=== PATIENT | male | born 1945 | race Caucasian/White ===

== ENCOUNTER 2023-12-08 05:12 | Inpatient (IN) | payer MEDICARE, BC, SELFPAY ==
[2023-12-07 20:58] VITALS: BP 130/68
--- NOTE | 2023-12-07 21:07 | ED.GENMED ---
History of Present Illness
<Horace Qureshi PA-C - Last Filed: 12/07/23 22:33>
General
Chief Complaint: Change in Mental Status
Source: ambulance crew
Time Seen by Provider: 12/07/23 20:59
History of Present Illness
History of Present Illness:
78-year-old male with past medical history of dementia, bipolar disorder, metabolic encephalopathy emergency department via EMS for evaluation of reported change in mental status with last known normal being at some point yesterday evening.
states patient throughout the day today and staff at the prison facility decided to send him to the ER this evening. Patient is reportedly getting treated for pneumonia with Zithromax and cefuroxime however it is unclear as to how long he has
been on these medications unable to get any history from the patient due to his current mental status.
<Az Lea DO - Last Filed: 12/08/23 00:37>
History of Present Illness
History of Present Illness:
78-year-old male with past medical history of dementia, bipolar disorder, metabolic encephalopathy emergency department via EMS for evaluation of reported change in mental status with last known normal being at some point yesterday evening.
states patient throughout the day today and staff at the prison facility decided to send him to the ER this evening. Patient is reportedly getting treated for pneumonia with Zithromax and cefuroxime however it is unclear as to how long he has
been on these medications unable to get any history from the patient due to his current mental status.
Contact for the patient and his daughter Jazmin [phone]
Past History
<Horace Qureshi PA-C - Last Filed: 12/07/23 22:33>
Past History
ED Past Medical History: Psychiatric and Other (Dementia)
ED Past Surgical History: Cardiac
Social History
Tobacco: Non-smoker
Alcohol: None
Drug: None
Personal:
Living: prison
Review of Systems
<Horace Qureshi PA-C - Last Filed: 12/07/23 22:33>
Review of Systems
All Other Systems: ROS reviewed and negative except as documented in HPI and ROS
Phy Exam
<Horace Qureshi PA-C - Last Filed: 12/07/23 22:33>
Physical Exam
Physical Exam:
GENERAL: Does not respond to sternal rub but is withdrawing from pain, stuporous,
EYE: Clear conjunctiva
NECK: Supple
ENT: o/p clr, dry mucous membranes
CARDIAC: Regular rate and rhythm .
LUNGS: Clear breath sounds bilaterally, no acute respiratory distress, no wheezes/rales/rhonchi
ABDOMEN: Soft,
NEUROLOGICAL: Unable to assess
SKIN: Warm and dry, skin intact.
MUSCULOSKELETAL: No edema, well perfused.
PSYCH: Unable to assess
Scores
<Horace Qureshi PA-C - Last Filed: 12/07/23 22:33>
Heart Failure Risk
Heart Failure Risk Score: Not Applicable
Heart Score for Chest Pain Patients
STEMI patient?: Not applicable
Withdrawal Assessment of Alcohol
Withdrawal Assessment Completed?: Not applicable
Course
<Horace Qureshi PA-C - Last Filed: 12/07/23 22:33>
Orders/Labs/Results
Orders:
Orders
12/07/23 20:59
Straight cath- Treatment ONCE
Urinalysis Reflex To Culture Urgent
0.9% Sodium Chloride 1000 ml [Nss] 1,800 ml IV NOW STA
12/07/23 21:00
Electrocardiogram (*1) Urgent
Reason for Study: Other
Other Reason for Exam: sepsis
CT Head W/o Iv Contrast Urgent
Comment:
Reason For Exam: AMS, hx dementia
EKG- Treatment ONCE
CR Chest Portable - 1 View Urgent
Comment:
Reason For Exam: unresponsive, reported hx of pneumonia
Reason Study Needs to be Portable: Unable to Transport
12/07/23 23:16
Complete Blood Count/With Diff Urgent
Comprehensive Metabolic Panel Urgent
Lactic Acid Q4H
Comment: CANCEL 2nd LACTIC ACID IF 1st LACTIC ACID IS LESS THAN 2
12/07/23 23:17
Blood Culture Q30M
ELE Source: Blood/Venous
Specimen Description:
Blood Culture Q30M
ELE Source: Blood/Venous
Specimen Description:
12/08/23 00:34
Add On- LAB Urgent
Tests Added?: lithium
12/08/23 01:00
Lactic Acid Q4H
Comment: CANCEL 2nd LACTIC ACID IF 1st LACTIC ACID IS LESS THAN 2
Abnormal Lab Results
12/07/23
23:16
RBC 4.07 L 10^6/uL
(4.70-6.10)
Hgb 11.0 L g/dL
(13.0-18.0)
Hct 34.1 L %
(39.0-52.0)
MCHC 32.3 L g/dL
(33.0-37.0)
RDW 16.3 H %
(11.5-14.5)
Absolute Lymphs (auto) 0.9 L 10^3/uL
(1.2-3.4)
Neutrophils % 79.3 H %
(42.2-75.2)
Lymphocytes % 11.7 L %
(20.5-51.1)
BUN 36 H mg/dl
(9-20)
Creatinine 1.8 H mg/dL
(0.7-1.3)
12/07/23 23:16
12/07/23 23:16
Vital Signs
Initial and Last Documented VS:
Initial Vital Signs
Temp Pulse Resp BP Pulse Ox
97.8 F 65 14 130/68 97
12/07/23 20:58 12/07/23 20:58 12/07/23 20:58 12/07/23 20:58 12/07/23 20:58
Last Documented Vital Signs
Temp Pulse Resp BP Pulse Ox
97.8 F 60 14 131/76 99
12/07/23 20:58 12/07/23 23:30 12/07/23 23:30 12/07/23 23:30 12/07/23 23:30
<Az Lea, DO - Last Filed: 12/08/23 00:37>
Orders/Labs/Results
Orders:
Orders
12/07/23 20:59
Straight cath- Treatment ONCE
Urinalysis Reflex To Culture Urgent
0.9% Sodium Chloride 1000 ml [Nss] 1,800 ml IV NOW STA
12/07/23 21:00
Electrocardiogram (*1) Urgent
Reason for Study: Other
Other Reason for Exam: sepsis
CT Head W/o Iv Contrast Urgent
Comment:
Reason For Exam: AMS, hx dementia
EKG- Treatment ONCE
CR Chest Portable - 1 View Urgent
Comment:
Reason For Exam: unresponsive, reported hx of pneumonia
Reason Study Needs to be Portable: Unable to Transport
12/07/23 23:16
Complete Blood Count/With Diff Urgent
Comprehensive Metabolic Panel Urgent
Lactic Acid Q4H
Comment: CANCEL 2nd LACTIC ACID IF 1st LACTIC ACID IS LESS THAN 2
12/07/23 23:17
Blood Culture Q30M
ELE Source: Blood/Venous
Specimen Description:
Blood Culture Q30M
ELE Source: Blood/Venous
Specimen Description:
12/08/23 00:34
Add On- LAB Urgent
Tests Added?: lithium
12/08/23 01:00
Lactic Acid Q4H
Comment: CANCEL 2nd LACTIC ACID IF 1st LACTIC ACID IS LESS THAN 2
Abnormal Lab Results
12/07/23
23:16
RBC 4.07 L 10^6/uL
(4.70-6.10)
Hgb 11.0 L g/dL
(13.0-18.0)
Hct 34.1 L %
(39.0-52.0)
MCHC 32.3 L g/dL
(33.0-37.0)
RDW 16.3 H %
(11.5-14.5)
Absolute Lymphs (auto) 0.9 L 10^3/uL
(1.2-3.4)
Neutrophils % 79.3 H %
(42.2-75.2)
Lymphocytes % 11.7 L %
(20.5-51.1)
BUN 36 H mg/dl
(9-20)
Creatinine 1.8 H mg/dL
(0.7-1.3)
12/07/23 23:16
12/07/23 23:16
Vital Signs
Initial and Last Documented VS:
Initial Vital Signs
Temp Pulse Resp BP Pulse Ox
97.8 F 65 14 130/68 97
12/07/23 20:58 12/07/23 20:58 12/07/23 20:58 12/07/23 20:58 12/07/23 20:58
Last Documented Vital Signs
Temp Pulse Resp BP Pulse Ox
97.8 F 60 14 131/76 99
12/07/23 20:58 12/07/23 23:30 12/07/23 23:30 12/07/23 23:30 12/07/23 23:30
<Horace Qureshi PA-C - Last Filed: 12/07/23 22:33>
MDM/Problems Addressed
Differential Diagnosis Includes:
Pneumonia, UTI, metabolic encephalopathy, progression of dementia/Alzheimer's, intracranial bleeding
MDM/Problems Addressed:
78-year-old male presenting the emergency department for evaluation of change in mental status over the last 24 hours or so. Patient unable to provide any history and EMS history was mainly from facility. Patient is clearly not responsive however
has normal vitals and is currently maintaining his airway. He is reportedly being treated for pneumonia so infectious etiology/metabolic encephalopathy is certainly high on differential. Will initiate sepsis workup. Head CT ordered as well to
evaluate for any intracranial pathology. Admission is anticipated.
Chronic conditions affecting care: Neurological disorder
Acute Exacerbation and/or Progression of Chronic Illness: Neurological disorder
<Horace Qureshi PA-C - Last Filed: 12/07/23 22:33>
*Radiology
Radiology exam reviewed: preliminary read by ED provider (No consolidations or effusions)
*Pulse Oximetry
Patient hypoxic: no
<Az Lea DO - Last Filed: 12/08/23 00:37>
*Critical Care Note
Total Time (30-74mins, 75-104mins- exclusive of procedures): Not Applicable
<Horace Qureshi PA-C - Last Filed: 12/07/23 22:33>
Comment
Comment:
9:50 PM: Family arrived to the bedside. States that patient was slightly conversive a little bit earlier today but this was very diminished following dinnertime this evening. Patient remains stuporous and not conversive. Difficult time arousing
patient with sternal rub. Does withdrawal from pain response. Continuing to maintain normal vitals
ED Attending Note
<Horace Qureshi PA-C - Last Filed: 12/07/23 22:33>
-
Portions of this chart may have been created with voice recognition software.� Occasional wrong word or��sound alike� substitutions may have occurred due to the inherent limitations of voice recognition software.
<Az Lea DO - Last Filed: 12/08/23 00:37>
ED Attending Note
Patient seen and examined by attending physician: Yes
I performed the substantive portion of visit, reviewed & personally made and approve the management plan that is documented in note by myself or OANH.: Yes
ED Attending Note:
Seen with PA examined independently agree with assessment and plan reviewed with and daughter is with him 6 or 7 hours a day at his facility subacute onset of increased confusion decreased activities of daily living difficult to arouse
today's been on antibiotics also on lithium and baclofen 10 3 times daily decreased to 5 3 times daily
prefers that he not be catheterized
Will start saline hydration unclear what his baseline creatinine is, also add lithium level
Discharge Plan
Departure
Patient Disposition: Admit
Date of Disposition: 12/08/23
Time of Disposition: 00:35
Admit to: Med/Surg
Presentation/result/management discussed w/ accepting MD/DO: Hospitalist
Patient with high blood pressure during this ER visit?: No
Condition: Fair
Covid-19: Not Applicable
Discharge Problem:
Stuporous
Prescriptions:
No Action
acetaminophen 325 mg Tablet
650 mg PO Q4H PRN (Reason: mild pain/temp>101)
loperamide 2 mg Capsule
2 mg PO DAILY PRN (Reason: diarrhea)
famotidine 40 mg Tablet
40 mg PO DAILY
dextromethorphan-guaifenesin 10-100 mg/5 mL Syrup
10 ml PO Q6H PRN (Reason: congestion)
lorazepam 0.5 mg Tablet
0.25 mg PO HS
magnesium hydroxide [Milk of Magnesia] 400 mg/5 mL Suspension
30 ml PO DAILY PRN (Reason: if no bm after 3 days)
ascorbic acid (vitamin C) [Vitamin C] 500 mg Tablet
500 mg PO DAILY
bisacodyl [Dulcolax (bisacodyl)] 10 mg Suppository
10 mg GA DAILY PRN (Reason: if no bm in 24hrs after MOM)
Fleet Enema 19-7 gram/118 mL Enema
118 ml GA DAILY PRN (Reason: if no bm in 24hrs after suppository)
cefuroxime axetil 500 mg Tablet
500 mg PO BID
atenolol 50 mg Tablet
50 mg PO DAILY
chlorpromazine 50 mg Tablet
150 mg PO HS
Thera M Tablet
1 tab PO DAILY
azithromycin [Zithromax] 500 mg Tablet
500 mg PO DAILY
Patient Comments:
12/07/2023: Start 12/06, for 3 days, stop 12/09
povidone-iodine [Betadine] 10 % Solution
1 applic TOPICAL PRN PRN (Reason: right heel soilage)
povidone-iodine [Betadine] 10 % Solution
1 applic TOPICAL DAILY
cholecalciferol (vitamin D3) 125 mcg (5,000 unit) Tablet
125 mcg PO DAILY
apixaban 5 mg Tablet
5 mg PO Q12
baclofen 5 mg Tablet
5 mg PO TID
Referrals:
Toney Jovel MD [Family Provider] -
Interventions
Interventions:
*Risk Screen - Suicide Last Done: 12/07/23 20:58
*General Assessment Last Done: 12/07/23 20:58
*Neglect/Abuse Screening Last Done: 12/07/23 20:58
ED- Fall Risk Assessment Last Done: 12/07/23 21:19
ED- Pulmonary Assessment Last Done: 12/07/23 21:19
ED- Neurological Assessment Last Done: 12/07/23 21:19
ED- Cardiac Assessment Last Done: 12/07/23 21:19
ED Swallowing Screen Last Done: 12/07/23 21:19
Discharge Date and Time
Print Language: VIETNAMESE
[2023-12-07 21:08] VITALS: BP 123/57
[2023-12-07 21:30] VITALS: BP 136/64
[2023-12-07 22:00] VITALS: BP 147/58
[2023-12-07 23:25] VITALS: BP 115/59
[2023-12-07] MEDS: NSS 1000 ML IV (23:26)
[2023-12-07 23:30] VITALS: BP 131/76
[2023-12-07 23:42] LABS: % Basophils 0.3 % (0-2); % Eosinophils 1.7 % (0-6); % Immature Granulocytes 0.4 % (0-0.5); % Lymphocytes 11.7 % (20.5-51.1); % Monocytes 6.6 % (1.7-9.3); % Neutrophils 79.3 % (42.2-75.2); Absolute Eosinophils 0.1 10^3/uL (0-0.7); Absolute Lymphocytes 0.9 10^3/uL (1.2-3.4); Absolute Monocytes 0.5 10^3/uL (0.1-0.6); Absolute Neutrophils 6.1 10^3/uL (1.4-6.5); Hematocrit 34.1 % (39.0-52.0); Mean Corp Hgb Conc. 32.3 g/dL (33.0-37.0); Mean Corpuscular Volume 83.8 fL (80.0-94.0); Mean Platelet Volume 9.1 fL (7.4-10.4); Nucleated Red Blood Cells % 0 % (-); Platelet Count 324 10^3/uL (130-400); Red Blood Cell Count 4.07 10^6/uL (4.70-6.10); Red Cell Dist. Width 16.3 % (11.5-14.5); White Blood Cell Count 7.7 10^3/uL (4.8-10.8)
[2023-12-08] VITALS (36 sets, daily range): BP systolic 103–145; BP diastolic 54–83; PULSE 83
[2023-12-08 00:05] LABS: Lactic Acid 1.4 mmol/L (0.7-2.0)
[2023-12-08 00:06] LABS: ALT (SGPT) 18 U/L (0-50); AST (SGOT) 28 U/L (17-59); Albumin 3.7 g/dl (3.5-5.0); Alkaline Phosphatase 84 U/L (38-126); Blood Urea Nitrogen 36 mg/dl (9-20); Calcium 9.4 mg/dl (8.4-10.2); Carbon Dioxide 26 mmol/L (22-30); Chloride 101 mmol/L (98-107); Glucose 92 mg/dl (70-99); Potassium 5.1 mmol/L (3.5-5.1); Sodium 136 mmol/L (135-145); Total Bilirubin 0.4 mg/dl (0.2-1.3); Total Protein 6.7 g/dl (6.3-8.2); eGFR 37.82
[2023-12-08 01:14] LABS: Lithium 0.4 mmol/L (0.6-1.2)
--- NOTE | 2023-12-08 04:18 | HPS.HSE ---
Addendum entered and electronically signed by Adolph Newell DO 12/08/23 04:36:
DVT Prophylaxis: On Eliquis. Not heparin.
Original Note:
Family Physician
-
Family Physician: Toney Jovel MD
Chief Complaint
-
Change in Mental Status
History of Present Illness
Patient is a 78y M with PMH significant for senile dementia / Bipolar, hypertension and CHF who was sent from [place] this evening for evaluation of mental status change. History is obtained entirely from [facility] record as patient is not responsive. Patient
is at baseline awake and alert and oriented x 2. he was apparently diagnosed with pneumonia by CXR a few days ago and was started on abx on 12/06/23. Today he was noted to be less responsive and was unresponsive this evening entirely. Patient was
sent to the ED for further evaluation. He remains poorly responsive here and I am unable to elicit any complaints.
Review of [facility] record reveals several recent med changes or additions as follows:
Cefuroxime and azithromycin started 12/05.
Baclofen started or adjusted 12/04.
Chlorpromazine appears to have been duplicated with a start date of 12/06.
Lorazepam added or adjusted 12/04.
Medical History
Past Medical History
Past Medical History: Reports Other
Additional Past Medical History:
Dementia
Bipolar Disorder
Iron Deficiency Anemia
Hypertension
CHF - Unknown Type
Past Surgical History: Reports Other
Additional Past Surgical History:
Unknown
Social History
Unable to obtain full social history at this time due to: Dementia
Family History
Family History: Unable to Obtain
Allergies / Home Medications
Allergies reflects when Allergies were last updated in [facility].
Home Medications with original date entered in [facility]
Allergy/Medication List:
Home Medications
acetaminophen 325 mg tablet 650 mg PO Q4H PRN mild pain/temp>101 12/07/23
apixaban 5 mg tablet 5 mg PO Q12 12/07/23
ascorbic acid (vitamin C) 500 mg tablet (Vitamin C) 500 mg PO DAILY 12/07/23
atenolol 50 mg tablet 50 mg PO DAILY 12/07/23
azithromycin 500 mg tablet (Zithromax) 500 mg PO DAILY 12/07/23
baclofen 5 mg tablet 5 mg PO TID 12/07/23
bisacodyl 10 mg rectal suppository (Dulcolax (bisacodyl)) 10 mg ND DAILY PRN if no bm in 24hrs after MOM 12/07/23
cefuroxime axetil 500 mg tablet 500 mg PO BID 12/07/23
chlorpromazine 50 mg tablet 150 mg PO HS 12/07/23
cholecalciferol (vitamin D3) 125 mcg (5,000 unit) tablet 125 mcg PO DAILY 12/07/23
dextromethorphan-guaifenesin 10 mg-100 mg/5 mL oral syrup 10 ml PO Q6H PRN congestion 12/07/23
famotidine 40 mg tablet 40 mg PO DAILY 12/07/23
loperamide 2 mg capsule 2 mg PO DAILY PRN diarrhea 12/07/23
lorazepam 0.5 mg tablet 0.25 mg PO HS 12/07/23
magnesium hydroxide 400 mg/5 mL oral suspension (Milk of Magnesia) 30 ml PO DAILY PRN if no bm after 3 days 12/07/23
multivitamin,tx-minerals 1 tab PO DAILY 12/07/23
povidone-iodine 10 % topical solution (Betadine) 1 applic topical DAILY right heel 12/07/23
povidone-iodine 10 % topical solution (Betadine) 1 applic topical PRN PRN right heel soilage 12/07/23
sodium phosphates 19 gram-7 gram/118 mL enema (Fleet Enema) 118 ml ND DAILY PRN if no bm in 24hrs after suppository 12/07/23
Review of Systems
-
Unable to obtain full review of systems at this time due to: Patient Non-verbal
Physical Exam
Vital Signs
Vital Signs
Temp Pulse Resp BP Pulse Ox
97.8 F 91 14 140/72 99
12/07/23 20:58 12/08/23 03:30 12/08/23 03:30 12/08/23 03:30 12/08/23 03:30
Physical Exam
General: Other (78y M sleeping comfortably. Withdraws from noxious stimuli. Does not open eyes, follow commands or answer questions.)
HEENT: Other (Flushed facies.)
Respiratory: Other (Decreased at bases - otherwise clear.)
Cardiac: S1/S2 and Regular Rhythm; No Murmur
GI: Soft, Non Tender, Non Distended and Normal Bowel Sounds
Musculoskeletal: No Clubbing, No Cyanosis and Other (Trace pedal edema.)
Neuro: Other (Unresponsive as noted above. No apparent focal neuro deficits.)
Laboratory Results
-
12/07/23 23:16
12/07/23 23:16
Laboratory Results
Lactic Acid Cancelled 12/08/23 01:00
Total Bilirubin 0.4 mg/dl (0.2-1.3) 12/07/23 23:16
AST 28 U/L (17-59) 12/07/23 23:16
ALT 18 U/L (0-50) 12/07/23 23:16
Alkaline Phosphatase 84 U/L (38-126) 12/07/23 23:16
Impression/Plan
-
A/P: Patient is a 78y M with PMH significant for senile dementia / Bipolar, hypertension and CHF who was sent from this evening for evaluation of mental status change.
Acute Toxic Metabolic Encephalopathy
- Admit for further evaluation and treatment.
- Imaging of the brain without acute abnormalities.
- I suspect that presentation is related to recent med changes.
- Hold Baclofen and lorazepam.
- Hold chlorpromazine for now - ? if he got a double dose this evening.
- Would observe off of abx as there is currently no evidence of pneumonia by CXR, labs, etc.
- Follow for improvement in mental status.
JACINTA v CKD
- SCr = 1.8 with no known baseline.
- IVF support overnight.
- Follow labs x 48 hours to establish JACINTA v CKD.
Benign Hypertension
- Stable. Continue current med regimen.
Senile Dementia with Behavioral Disturbance
Bipolar Disorder
- Hold sedating meds acutely given mental status change.
- Follow for development of agitation / acute delirium during hospital stay.
CHF - Unknown Type
- No evidence of volume overload on today's exam.
- Patient is not on chronic diuretic therapy.
- Follow daily weights, I/Os, etc.
DVT Prophylaxis: Subcut Heparin
Code Status: Full
[2023-12-08 06:22] LABS: Hematocrit 27.7 % (39.0-52.0); Hemoglobin 8.8 g/dL (13.0-18.0); Mean Corp Hgb Conc. 31.8 g/dL (33.0-37.0); Mean Corpuscular Hgb 27.2 pg (27.0-31.0); Mean Corpuscular Volume 85.5 fL (80.0-94.0); Mean Platelet Volume 9.2 fL (7.4-10.4); Platelet Count 281 10^3/uL (130-400); Red Blood Cell Count 3.24 10^6/uL (4.70-6.10); White Blood Cell Count 8.4 10^3/uL (4.8-10.8)
[2023-12-08 06:37] LABS: Blood Urea Nitrogen 32 mg/dl (9-20); Calcium 8.7 mg/dl (8.4-10.2); Carbon Dioxide 23 mmol/L (22-30); Chloride 110 mmol/L (98-107); Glucose 98 mg/dl (70-99); Magnesium 2.1 mg/dl (1.6-2.3); Potassium 4.3 mmol/L (3.5-5.1); Sodium 139 mmol/L (135-145); eGFR 51.13
[2023-12-08 07:08] LABS: TSH Reflex To Free T4 2.02 uIU/ml (0.47-4.68)
--- NOTE | 2023-12-08 08:18 | W.PN.HOSP.TC ---
Today's Communication/Plan
-
Monitor neurological and behavioral status.
Assessment / Plan
Assessment / Plan
Physical Exam
General: Other (78y M sleeping comfortably. Withdraws from noxious stimuli. Does not open eyes, follow commands or answer questions.)
HEENT: Other (Flushed facies.)
Respiratory: Other (Decreased at bases - otherwise clear.)
Cardiac: S1/S2 and Regular Rhythm; No Murmur
GI: Soft, Non Tender, Non Distended and Normal Bowel Sounds
Musculoskeletal: No Clubbing, No Cyanosis and Other (Trace pedal edema.)
Neuro: Other (Unresponsive as noted above. No apparent focal neuro deficits.)
A/P:
Acute Toxic Metabolic Encephalopathy
- Admit for further evaluation and treatment.
- Imaging of the brain without acute abnormalities.
- I suspect that presentation is related to recent med changes but other possibilities in the look out. Psychiatry consult who in turn recommended neurology consult.
- Hold Baclofen and lorazepam.
- Hold chlorpromazine for now - ? if he got a double dose this evening.
- Would observe off of abx as there is currently no evidence of pneumonia by CXR, labs, etc.
- Follow for improvement in mental status.
-Discussed with family at bedside today on 12/07--> patient was very functional up until this July where his health has been declined. There were several diagnoses in question whether OCD and bipolar and also possibility of frontotemporal dementia
but later on this was refuted but still dementia is a possibility. He has seen neurology as outpatient just a couple weeks ago as per family the head of neurology at [facility].
JACINTA v CKD
- SCr = 1.8 with no known baseline.
- IVF support overnight.
- Follow labs x 48 hours to establish JACINTA v CKD.
Benign Hypertension
- Stable. Continue current med regimen.
Senile Dementia with Behavioral Disturbance
Bipolar Disorder
- Hold sedating meds acutely given mental status change.
- Follow for development of agitation / acute delirium during hospital stay.
CHF - Unknown Type
- No evidence of volume overload on today's exam.
- Patient is not on chronic diuretic therapy.
- Follow daily weights, I/Os, etc.
DVT Prophylaxis: Subcut Heparin
Code Status: Full
Anticipated Discharge: > 48 hours
Subjective/Interval History
-
Date of Service: December 08, 2023
Patient encephalopathic although per family improved. Afebrile
Objective Data
-
Labs:
Laboratory Results
12/07/23 12/08/23
23:16 05:43
WBC 7.7 8.4
Hgb 11.0 L 8.8 L
Hct 34.1 L 27.7 L
Plt Count 324 281
Sodium 136 139
Potassium 5.1 4.3
Chloride 101 110 H
Carbon Dioxide 26 23
BUN 36 H 32 H
Creatinine 1.8 H 1.4 H
Glucose 92 98
Calcium 9.4 8.7
Total Bilirubin 0.4
AST 28
ALT 18
Alkaline Phosphatase 84
Vital Signs:
Vital Signs
Temp Pulse Resp BP Pulse Ox
97.8 F 72 13 120/60 93
12/07/23 20:58 12/08/23 05:00 12/08/23 05:00 12/08/23 05:00 12/08/23 05:00
[2023-12-08] MEDS: TENORMIN PO (09:53)
[2023-12-08] MEDS: ELIQUIS PO (09:53)
[2023-12-08] MEDS: NSS 1000 IV ×2 (12:02→21:32)
--- NOTE | 2023-12-08 12:34 | CON.MD ---
Consultation - Medical
-
patient seen chart reviewed. and daughter at bedside. this patient does have long psych hx but was hospitalized only twice once over forty years ago and recently from august 02 to 'almost october' of this year. he was at some point dx as bpad
although family tells me there is a significant ocd component to his illness. he took lithium and effexor until july of this year when he was seen for change in his mental status. they describe that he had become depressed and withdrawn. he was
also described as being paranoid and thinking his food was poisoned. he saw a inspector metal fabricating who stopped lithium and effexor and tried vraylar. d said she was told lithium level was 'too high ' 1.04. when i told her that was on the high side but not toxic
she said maybe it was '1.4' at any rate he did not do well when it was hi'ed and his condition worsened steadily and he was hospitalized at the older adult unit at [facility] for nearly two months where she says 'they threw everything at him'
including risperdal olanzapine. they said he walked into [facility] but he could not walk at time of discharge and they do not know why. he was dx with dementia they were told fronto temporal or 'maybe' lewy body and he was sent to [facility]. he developed pressure ulcers there given his inactivity and remains rigid. from the record it is noted he was placed on baclofen and was also taking thorazine 200 mg q hs upon dc from psych facility in october. he was receiving ativan prn
anxiety. he was referred her for change in mental status. he has been withdrawn and not very communicative. i noted a few other meds in his med list which could cause mental status changes including prn loperamide and dextropmethorphan. it is not
clear when he received them or how much. the patient does have cognitive impairment currently. he is could tell me his name and that he is in a 'hospital'. he could not give me other info eg how many chidren he has (one) what he did for a living etc
or anything about his current situation.
past psych hx see above patient maintained on lithium for many years recently dc'ed he has been tried on a number of other medications. see above re dx of dementia which is new and from that recent hospitalization. while patient was o/o hospital
for many years there was a drop off in his level of functioning. 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 d
says essentially her mother was the breadwinner in the family
medical hx at one point was rx w atorvastatin for hld hx htn cat scan brain some atrophy no acute cxr no acute anemia w hgb 8+ cr 1.4 bun 32 ecg abn w nl qtc
fh father w ocd
substance abuse none
social resided w of many years til recently dc from [facility] to [facility] where he has been since october. one d who is a denist two grandchildren. retired
mse alert ox3 to person and 'hospital.' notable rigidity on exam patient unable to provide any coherent hx. mood is apprehensive affect constricted not suicidal insight judgment impaired
dx dementia likely with ? superimposed tme given anticholinergic medications? perhaps some level of dehydration by hx bipolar/ocd
recommendation hold medications which could contribute to change in mental status . neuro consult re mental status and rigidity . .check b12 folate tsh vit d. ativan prn anxiety psych will follow
--- NOTE | 2023-12-08 13:18 | WOUNDNOTE ---
[facility] RN note: Patient admitted with metabolic encephalopathy
See H&P for complete history.
PMH: Bipolar depression, Alzheimers dementia, HTN, stroke, ambulatory dysfunction. Patient was admitted from [facility] where he was receiving rehab.
Wound Location and type/assessment: Patient admitted with bilateral heel unstageable PI, both covered with thick, adherent eschar. No drainage noted. and daughter at bedside. stated MO has been applying Betadine to heels daily. Per
family report, patient transfers to chair daily and has not walked in some time. Both also report recent weight loss and poor intake. Patient incontinent of urine but skin intact. Per KAZ Treviño, sacrum is intact.
Appetite: NPO
Pressure redistribution devices in place: Versa Care air bed ordered from [employer]. Fiber filled boots ordered from [facility].
Plan: Betadine and clean dressing to heels PRN. made aware by this ghost writer that goal of Betadine is to protect dry eschar. Instructed on off-loading of heels when in bed (pillow under calves or fiber filled boot). Recommended air cushion
to wheelchair seat when patient returns to rehab (will add to discharge instructions). Recommended condom cath to RN for moisture management. KAZ Treviño updated regarding order for air bed and fiber filled boots. Will confirm orders with
hospitalist. Patient has several co-morbidities including poor mobility, dementia, and poor intake/weight loss. Wounds may worsen and new wounds may develop even with optimal care.
--- NOTE | 2023-12-08 13:38 | CON.NEURO4 ---
Consultation - Neurology 4
-
CONSULTING PHYSICIAN: Milvia Rose
REFERRING PHYSICIAN: Psychiatry
DICTATED BY: Milvia Rose
DATE/TIME OF REQUEST: 12/08/23
DATE/TIME OF CONSULTATION: 12/08/23
Reason for Consultation: Mental status change, history of dementia
History of Present Illness:
Patient is a 78 year old man with history of CHF, anemia, bipolar disorder, unspecified dementia presents to hospital with mental status change. He had apparently been diagnosed with pneumonia a couple of days prior to ER presentation and was
being treated with antibiotics. Mental status was a change from his baseline, so much so that he was reported as unresponsive for the ER physician as well as admitting physician as well.
Psychiatry was asked to evaluate and was ascertained that patient has previously been on Parrott and Effexor for treatment of bipolar disorder, some instances of OCD behaviors as well as paranoid thinking in the past. Parrott had been used for a
long period of time until 2023. He had [facility] in Parrott [facility] but had worsening of overall functioning and mental status to the point of being admitted at [facility] for several weeks. After
discharge he had significant physical deconditioning and was no longer mobile after hospital discharge.
Records had indicated that patient was on Chlorpromazine/Thorazine and baclofen as well as as needed Lorazepam for anxiety.
Patient is a wake and alert at this time, is pleasant and cooperative with little complaints and says that I probably should be talking with his family. He does endorse knowing who his family is and that his daughter is a dentist and related some
recent changes in job for her. He denies headache, chest pain, nausea/vomiting, or vision changes. Denies limb pain.
Past Medical History: Unspecified dementia, bipolar disorder, iron deficiency anemia, GERD
Surgical History: None known
Family History: Unknown
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
Allergies: No known drug allergies
Review of Symptoms:
Patient denies any fever, headache, chest pain, shortness of breath, GI or symptoms.
Physical Exam:
Elderly man no distress, awake and alert, pleasant, no signs of head or neck trauma, oropharnyx clear, eyes clear, neck with no masses, restricted range of motion of the neck in all directions, no neck masses, breathing unlabored no wheezing, heart
rate regular, abdomen soft non tender, no lower extremity edema or rash seen
Neurologic Examination:
Patient is a wake and alert, he obeys simple commands consistently, obeys multi step command, not oriented to location, month, or recent holiday. Spontaneous speech is fluent, repetition intact. Thought process linear and goal directed, focuses on
family and getting medical history. Difficulty with complex tasks such as counting the months backwards, more advanced calculations, and impaired memory recall for recent events. No evidence of neglect. Weakness and rigidity prohibits evaluation
of praxis.
Cranial nerve examination shows no ptosis, resting gaze midline, smooth pursuit movements normal EOM are full, no gaze preference, no pathologic nystagmus, speech has mild dysarthria
Motor examination shows symmetric rigidity more in the arms but also present in the legs bilaterally. Seems to have normal amount of blinking and mildly decreased facial expression. No tremor. Muscle bulk is normal no fasciculations. Patient is
able to full resistance to shoulder abduction and hip flexion demonstrating symmetric muscle strength. There is symmetric bradykinesia with rapid movements of the hands and wrists and finger movements. No abnormal movements of the mouth.
Sensation intact to light touch in upper and lower extremities as well as noxious stimulation
Reflexes unobtainable consider repeat sponsored is flexor no clonus
No ataxia on finger-nose testing but limited due to arm rigidity and bradykinesia.
Neuro Imaging: CT head non contrast with generalized atrophy, no acute infarct, hemorrhage, mass, edema, no hydrocephalus
Impressions
1. 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 Didn't seem to have prominent personality change or behavioral
abnormalities typical of a frontotemporal dementia and doesn't seem to fit the picture of an Alzheimer's disease or vascular dementia.
2. Difficult to tell how much of patient's rigidity of limbs is due to neurodegenerative disease versus effects of previous medications that can produce parkinsonism (Parrott and Chlorpromazine both potentially can).
3. History Bipolar disorder with long treatment duration with lithium, now off.
4. Mental status seems to have improved compared to initial evaluation by ED and admitting physician. Possibly due to improvement in pneumonia. TAR WORKER acting medications probably playing some role. Not a high suspicion this was seizure activity as
cause of poor responsiveness.
Recommendations:
1. Lab checks following infectious treatment, JACINTA, B12, folate TSH
2. Agree with holding baclofen and Chlorpromazine
3. Down the road can consider a Sinemet trial to assess if this could help with rigidity but would prefer not to start this medication now as risks side effects and the patient seems to be improving
4. Would benefit from outpatient neurology following
5. CT head non contrast is sufficient brain imaging
--- NOTE | 2023-12-08 18:00 | EDRN ---
Patient taken to room 428-1 in hospital bed by ED RN and certified cytotechnologist with NSS infusing.
--- NOTE | 2023-12-08 19:37 | PTCARENOTE ---
Rn flow aircraft engine cylinder mechanic- Spoke with to do the admission assessment. As per patient tolerated a peanut/jelly sandwich, and water today while holding in the ED as she was not aware patient was NPO. is requesting we feed patient, and when
giving him drinks please give him a straw. Relayed this information to Betsey his primary nurse.
[2023-12-08 20:47] LABS: TSH Reflex To Free T4 2.01 uIU/ml (0.47-4.68)
[2023-12-08 21:22] LABS: Folate 14.3 ng/ml (2.76-20); Vitamin B12 623 pg/ml (239-931)
[2023-12-08] MEDS: ELIQUIS 5 MG PO (21:32)
[2023-12-09 03:10] VITALS: BP 131/66
[2023-12-09] MEDS: NSS 1000 IV ×2 (05:36→16:57)
[2023-12-09 07:05] LABS: % Basophils 0.4 % (0-2); % Eosinophils 1.6 % (0-6); % Immature Granulocytes 0.4 % (0-0.5); % Lymphocytes 8.2 % (20.5-51.1); % Monocytes 6.6 % (1.7-9.3); % Neutrophils 82.8 % (42.2-75.2); Absolute Eosinophils 0.1 10^3/uL (0-0.7); Absolute Lymphocytes 0.6 10^3/uL (1.2-3.4); Absolute Monocytes 0.5 10^3/uL (0.1-0.6); Absolute Neutrophils 6.2 10^3/uL (1.4-6.5); Hematocrit 25.6 % (39.0-52.0); Hemoglobin 8.1 g/dL (13.0-18.0); Mean Corp Hgb Conc. 31.6 g/dL (33.0-37.0); Mean Corpuscular Hgb 27.4 pg (27.0-31.0); Mean Corpuscular Volume 86.5 fL (80.0-94.0); Mean Platelet Volume 8.8 fL (7.4-10.4); Nucleated Red Blood Cells % 0 % (-); Platelet Count 267 10^3/uL (130-400); Red Blood Cell Count 2.96 10^6/uL (4.70-6.10); White Blood Cell Count 7.5 10^3/uL (4.8-10.8)
[2023-12-09 07:18] LABS: Blood Urea Nitrogen 22 mg/dl (9-20); Calcium 8.5 mg/dl (8.4-10.2); Carbon Dioxide 23 mmol/L (22-30); Chloride 115 mmol/L (98-107); Glucose 86 mg/dl (70-99); Potassium 4.1 mmol/L (3.5-5.1); Sodium 143 mmol/L (135-145); eGFR > 60.00
[2023-12-09 07:45] VITALS: BP 120/69
--- NOTE | 2023-12-09 09:04 | W.PN.HOSP.TC ---
Addendum entered and electronically signed by Santiago Antony MD 12/09/23 17:55:
Yes, bilateral heel unstageable PI, POA
Original Note:
Today's Communication/Plan
-
IV fluids. Hold medications. Monitor renal function. Sinemet trial.
Assessment / Plan
Assessment / Plan
Physical exam:
General: Chronically ill
HEENT: Normocephalic, Atraumatic and Moist Mucous Membranes
Respiratory: Clear to Auscultation; Negative Wheezes, Rales or Rhonchi
Cardiac: Regular Rhythm and S1/S2
GI: Soft, Nontender and Nondistended
Musculoskeletal: No Clubbing, No Cyanosis and No Edema
Neuro: Awake, Alert and Disoriented, increased tone, no focal weakness.
Psych: Anxious, disorganized thoughts.
A/P:
Acute Toxic Metabolic Encephalopathy
- Imaging of the brain without acute abnormalities.
- On baclofen, chlorpromazine, dextromethorphan, loperamide, magnesium, Fleet enema, antibiotics, and other vitamins all which are on hold.
- I suspect that presentation is related to medications polypharmacy and also renal failure but other possibilities in the look out. Psychiatry consulted who in turn requested neurology consult.
- Restart lorazepam to avoid withdrawal.
-Holding lithium-defer to psych if and when to restart. [place] level upon admission 0.4
- Would observe off of abx as there is currently no evidence of pneumonia by CXR, labs, etc.
-Discussed with family at bedside on 12/07--> patient was very functional up until this July where his health has been declined. There were several diagnoses in question whether OCD and bipolar and also possibility of frontotemporal dementia but
later on this was refuted but still dementia such as Jaime-body or other is a possibility. He has seen neurology as outpatient just a couple weeks ago as per family the head of neurology at [place].
-PT OT eval and speech therapy
-Discussed with family, at bedside on 12/08
JACINTA:
-Creatinine 1.8 admission---> creatinine 1.2 today
-IV fluids--> decrease rate and stop in a.m.
Benign Hypertension
- Stable. Continue current med regimen.
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
Bipolar Disorder/OCD
- Hold sedating meds acutely given mental status change.
- Follow for development of agitation / acute delirium during hospital stay.
-Neurology will start him on Sinemet
CHF - Unknown Type
- No evidence of volume overload on today's exam.
- Patient is not on chronic diuretic therapy.
- Follow daily weights, I/Os, etc.
Unclear if arrhythmias such as A-fib since he is on Eliquis and atenolol but will gather more all medical information/records.
DVT Prophylaxis: On Eliquis
Code Status: Full
Total time spent on today's encounter was 52 minutes which included time spent in counseling the patient/family regarding diagnosis and treatment plan as listed above, goals of care, and symptom management. Case was discussed with nursing staff,
specialists, and care coordinators/case management. All labs and imaging personally reviewed by me. Remainder the time spent in detailed review of previous records, lab data, imaging, and other medical provider documentation.
Anticipated Discharge: > 48 hours
Subjective/Interval History
-
Date of Service: December 09, 2023
Patient denies any new complaints. He tells me that they given him something that is poisonous and after corrected him he calmed down. Afebrile
Objective Data
-
Labs:
Laboratory Results
12/09/23
06:25
WBC 7.5
Hgb 8.1 L
Hct 25.6 L
Plt Count 267
Sodium 143
Potassium 4.1
Chloride 115 H
Carbon Dioxide 23
BUN 22 H
Creatinine 1.2
Glucose 86
Calcium 8.5
Vital Signs:
Vital Signs
Temp Pulse Resp BP Pulse Ox
99.1 F 76 17 120/69 96
12/09/23 07:45 12/09/23 07:45 12/09/23 07:45 12/09/23 07:45 12/09/23 07:45
I&O
12/08/23 12/09/23 12/10/23
06:59 06:59 06:59
Intake Total 1200 / 1200
Balance 1200 / 1200
--- NOTE | 2023-12-09 09:21 | PTOTSP ---
ST Acute Care Evaluation
Pt currently presents with mild oral dysphagia in the setting of acute encephalopathy and chronic dementia.
Recommendations:
- Initiate PO diet of SOFT BITE SIZED SOLIDS and THIN LIQUIDS with meds whole in puree.
- General aspiration precautions: HOB upright for ALL PO intake; pt must be fully awake/alert for all PO intake; 1:1 assist with all feeding; small bites/sips; alternate bites/sips; oral care after all meals.
--- NOTE | 2023-12-09 09:36 | PN.CDI ---
CDI
- -
CDI:
Physician Documentation Request
Admit Date: 12/08/23 05:12
Dear Doctor Antony,
Please review the following and provide your response in the progress notes.
Clinical Indicators:
12/08/23 13:18 - Wound Note
#Wound Location and type/assessment:
#...Patient admitted with bilateral heel unstageable PI, both covered with thick,
#...adherent eschar. No drainage noted.
#Wounds may worsen and new wounds may develop even with optimal care.
Physician documentation of the type and location of wounds is required for compliant documentation. Based on the above clinical findings and your assessment, please provide the following in your progress note:
Yes, bilateral heel unstageable PI, POA
No, bilateral heel unstageable PI
Other(please specify)
1. Location of the ulcer/wound, including laterality.
2. Type (etiology) of ulcer/wound:
- Diabetic ulcer
- Arterial (ischemic) ulcer
- Traumatic wound
- Venous stasis ulcer
- Pressure (decubitus) ulcer
3. If a pressure ulcer, please also include the stage* of the ulcer:
- Stage 1 - Skin intact, non-blanchable redness
- Stage 2 - Partial thickness loss of dermis, includes intact or open blister
- Stage 3 - Full thickness tissue not including bone, tendon or muscle
- Stage 4 - Full thickness tissue loss, including exposed bone, tendon or muscle
- Unstageable - Full thickness loss in which the base of the ulcer is covered by slough (yellow, hernandez, means, green or brown) and/or eschar (hernandez, brown or black) in the wound bed.
Use of terms such as suspected, likely, concern for, or probable (associated with a specific diagnosis that is being evaluated, monitored, or treated as if it exists) are acceptable and can be coded in the inpatient setting, when documented at the
time of discharge.
Thank you,
Yoly Sawant RN BSN CCDS
CDI Specialist
please contact via tiger text
Please use your independent medical judgment in providing your response.
*Source: National Pressure Ulcer Advisory Panel (NPUAP)
[2023-12-09] MEDS: TENORMIN 50 MG PO (10:56)
[2023-12-09] MEDS: ELIQUIS 5 MG PO ×2 (10:56→20:23)
[2023-12-09 11:35] VITALS: BP 131/61
--- NOTE | 2023-12-09 11:46 | W.PN.UPDATE ---
Update Note
Progress Note Update
patient seen chart reviewed. spoke with dr blanton and with nursing. the patient was quietly lying in bed. nursing expressed concern about pressure ulcer on his left boot which was weeping. wound care has made some recommendations. the patient was
alert but not interactive with me. he continues w severe rigidity on the left. dr blanton's consult appreciated. he will likely prescribe sinemet to try to ameliorate the rigidity in the near future. for now would hold off on psychiatric
medications. the patient remains confused and rather withdrawn although cooperative. he has not required any prn ativan.
[2023-12-09 12:26] LABS: Hepatitis C Antibody Negative (Negative)
--- NOTE | 2023-12-09 13:02 | CM ---
Patient seen bedside.
Patients spouse and granddaughter in the room.
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
Patient from [facility], there since October,.
Per spouse, patient started with 'dementia' in May and went to [facility], from there transferred to [facility].
Patient total care, needs set up for feeding.
Patient is conversant and sometimes appropriate.
Patient is able to stand and was able to ambulate with a RW prior to [facility] admission.
Per spouse was not ambulating at [facility] and they had put him in marlon chair where he deconditioned.
PT/OT evals pending.
Per spouse patient is continent of urine and will use the bathroom with assistance.
PCP: Dr Jovel
plan: back to [facility] when stable.
(If d/c over the weekend, Leela is covering at [phone])
[facility]
report# [phone]
[2023-12-09 15:00] VITALS: BP 130/65
[2023-12-09] MEDS: ATIVAN 0.5 MG PO (16:55)
--- NOTE | 2023-12-09 17:34 | PTCARENOTE ---
1645 Noted pt anxious and calling out for nurse at times. Pt upset and mention cannot get relax. Ativan 0.5 mg po given as ordered. Assisted pt with dinner meal, appetite good. Pt calming, continue to monitor pt closely.
[2023-12-09 23:01] VITALS: BP 146/70
[2023-12-10 03:09] VITALS: BP 139/61
[2023-12-10] MEDS: NSS 1000 IV (04:22)
[2023-12-10 07:00] VITALS: BP 113/73
[2023-12-10 08:29] LABS: Hematocrit 24.1 % (39.0-52.0); Hemoglobin 7.7 g/dL (13.0-18.0); Mean Corpuscular Hgb 26.8 pg (27.0-31.0); Mean Platelet Volume 9.5 fL (7.4-10.4); Platelet Count 260 10^3/uL (130-400); Red Blood Cell Count 2.87 10^6/uL (4.70-6.10); Red Cell Dist. Width 15.8 % (11.5-14.5); White Blood Cell Count 6.2 10^3/uL (4.8-10.8)
--- NOTE | 2023-12-10 08:36 | W.PN.HOSP.TC ---
Today's Communication/Plan
-
Stop IV fluids. Benzodiazepines and Sinemet.
Assessment / Plan
Assessment / Plan
Physical exam:
General: Chronically ill
HEENT: Normocephalic, Atraumatic and Moist Mucous Membranes
Respiratory: Clear to Auscultation; Negative Wheezes, Rales or Rhonchi
Cardiac: Regular Rhythm and S1/S2
GI: Soft, Nontender and Nondistended
Musculoskeletal: No Clubbing, No Cyanosis and No Edema
Neuro: Awake, Alert and Disoriented, increased tone, no focal weakness.
Psych: Anxious, disorganized thoughts.
A/P:
Acute Toxic Metabolic Encephalopathy
- Imaging of the brain without acute abnormalities.
- On baclofen, chlorpromazine, dextromethorphan, loperamide, magnesium, Fleet enema, antibiotics, and other vitamins all which are on hold.
- I suspect that presentation is related to medications polypharmacy and also renal failure but other possibilities in the look out. Psychiatry consulted who in turn requested neurology consult.
- Restart lorazepam to avoid withdrawal.
-Holding lithium-defer to psych if and when to restart. [place] level upon admission 0.4
- Would observe off of abx as there is currently no evidence of pneumonia by CXR, labs, etc.
-Discussed with family at bedside on 12/07--> patient was very functional up until this July where his health has been declined. There were several diagnoses in question whether OCD and bipolar and also possibility of frontotemporal dementia but
later on this was refuted but still dementia such as Jaime-body or other is a possibility. He has seen neurology as outpatient just a couple weeks ago as per family the head of neurology at [place].
-PT OT eval and speech therapy
-Discussed with family, at bedside on 12/08
-Discussed with psychiatrist today
JACINTA:
-Creatinine 1.8 admission---> creatinine 1.1 today
-Stop IV fluids
Benign Hypertension
- Stable. Continue current med regimen.
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
Bipolar Disorder/OCD
- Hold sedating meds acutely given mental status change.
- Follow for development of agitation / acute delirium during hospital stay.
-Neurology started him on Sinemet
CHF - Unknown Type
- No evidence of volume overload on today's exam.
- Patient is not on chronic diuretic therapy.
- Follow daily weights, I/Os, etc.
-Discontinue telemetry--> no events and he has been in sinus rhythm.
Unclear if arrhythmias such as A-fib since he is on Eliquis and atenolol but will gather more all medical information/records.
DVT Prophylaxis: On Eliquis
Code Status: Full
Anticipated Discharge: > 48 hours
Subjective/Interval History
-
Date of Service: December 10, 2023
Patient alert. He tells me 'he wants to go home but does not know his address'. Afebrile
Objective Data
-
Labs:
Laboratory Results
12/10/23
07:10
WBC Pending
Hgb Pending
Hct Pending
Plt Count Pending
Sodium Pending
Potassium Pending
Chloride Pending
Carbon Dioxide Pending
BUN Pending
Creatinine Pending
Glucose Pending
Calcium Pending
Vital Signs:
Vital Signs
Temp Pulse Resp BP Pulse Ox
98.6 F 61 16 139/61 96
12/10/23 03:09 12/10/23 03:09 12/10/23 03:09 12/10/23 03:09 12/10/23 03:09
I&O
12/09/23 12/10/23 12/11/23
06:59 06:59 06:59
Intake Total 1200 / 1200 2019
Balance 1200 / 1200 2019
[2023-12-10 09:21] LABS: Blood Urea Nitrogen 17 mg/dl (9-20); Calcium 8.2 mg/dl (8.4-10.2); Carbon Dioxide 23 mmol/L (22-30); Chloride 112 mmol/L (98-107); Glucose 84 mg/dl (70-99); Potassium 3.9 mmol/L (3.5-5.1); Sodium 139 mmol/L (135-145); eGFR > 60.00
[2023-12-10] MEDS: ATIVAN 0.5 MG PO (10:40)
[2023-12-10] MEDS: TENORMIN 50 MG PO (10:40)
[2023-12-10] MEDS: SINEMET 25-100 1 TABLET PO ×3 (10:40→21:32)
[2023-12-10] MEDS: ELIQUIS 5 MG PO ×2 (10:40→20:20)
[2023-12-10 11:00] VITALS: BP 151/82
--- NOTE | 2023-12-10 12:24 | W.PN.UPDATE ---
Addendum entered and electronically signed by Pop Mtz MD 12/10/23 14:50:
patient was half oob when i came in to talk w this afternoon. had left. nursing and i discussed med sitter for him. called at home.
Original Note:
Update Note
Progress Note Update
patient seen chart reviewed. discussed w nursing and with aide. the patient was alert . he remains very confused but was able to ask me to help him eg give him his water and refill with water and ice. he also kept telling me 'turn up the straw...'
turning up the tv did not seem to be what he wanted. i did note his breakfast tray untouched. staff tells me he did not want to eat. noted he is less rigid. he was able to hold the cup and sip water from a straw by himself. he is now on sinemet .
no issues w agitation or aggression . he has on prn ativan on board re psych once yesterday and once today. will follow
[2023-12-10 15:00] VITALS: BP 147/78
--- NOTE | 2023-12-10 15:00 | W.PN.UPDATE ---
Update Note
Progress Note Update
spoke with daughter and to discuss patient condition and treatment.
[2023-12-10 23:08] VITALS: BP 150/78
[2023-12-11 07:30] VITALS: BP 145/89
--- NOTE | 2023-12-11 07:30 | W.PN.HOSP.TC ---
Today's Communication/Plan
-
On Sinemet. Discharge planning in progress
Assessment / Plan
Assessment / Plan
Physical exam:
General: Chronically ill
HEENT: Normocephalic, Atraumatic and Moist Mucous Membranes
Respiratory: Clear to Auscultation; Negative Wheezes, Rales or Rhonchi
Cardiac: Regular Rhythm and S1/S2
GI: Soft, Nontender and Nondistended
Musculoskeletal: No Clubbing, No Cyanosis and No Edema
Neuro: Awake, Alert and Disoriented, increased tone, no focal weakness.
Psych: Anxious, disorganized thoughts.
A/P:
Acute Toxic Metabolic Encephalopathy
- Imaging of the brain without acute abnormalities.
- On baclofen, chlorpromazine, dextromethorphan, loperamide, magnesium, Fleet enema, antibiotics, and other vitamins all which are on hold.
- I suspect that presentation is related to medications polypharmacy and also renal failure but other possibilities in the look out. Psychiatry consulted who in turn requested neurology consult.
- Restart lorazepam to avoid withdrawal.
-Holding lithium-defer to psych if and when to restart. [place] level upon admission 0.4
- Would observe off of abx as there is currently no evidence of pneumonia by CXR, labs, etc.
-Discussed with family at bedside on 12/07--> patient was very functional up until this July where his health has been declined. There were several diagnoses in question whether OCD and bipolar and also possibility of frontotemporal dementia but
later on this was refuted but still dementia such as Jaime-body or other is a possibility. He has seen neurology as outpatient just a couple weeks ago as per family the head of neurology at [place].
-PT OT eval and speech therapy
-Discussed with family, at bedside on 12/09 and they wanted to discuss further with psychiatry.
JACINTA:
-Creatinine 1.8 admission---> creatinine 1.1 last time checked
-Stop IV fluids
Benign Hypertension
- Stable. Continue current med regimen.
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
Bipolar Disorder/OCD
- Hold sedating meds acutely given mental status change.
- Follow for development of agitation / acute delirium during hospital stay.
-Neurology started him on Sinemet
CHF - Unknown Type
- No evidence of volume overload on today's exam.
- Patient is not on chronic diuretic therapy.
- Follow daily weights, I/Os, etc.
-Discontinue telemetry--> no events and he has been in sinus rhythm.
Unclear if arrhythmias such as A-fib since he is on Eliquis and atenolol but will gather more all medical information/records.
DVT Prophylaxis: On Eliquis
Code Status: Full
Anticipated Discharge: 24 - 48 hours
Subjective/Interval History
-
Date of Service: December 11, 2023
Patient alert but disoriented. No new events
Objective Data
-
Vital Signs:
Vital Signs
Temp Pulse Resp BP Pulse Ox
97.9 F 78 20 150/78 97
12/10/23 23:08 12/10/23 23:08 12/10/23 23:08 12/10/23 23:08 12/10/23 23:08
I&O
12/10/23 12/11/23 12/12/23
06:59 06:59 06:59
Intake Total 2019
Balance 2019
[2023-12-11] MEDS: TENORMIN 50 MG PO (09:06)
[2023-12-11] MEDS: SINEMET 25-100 1 TABLET PO ×3 (09:06→21:00)
[2023-12-11] MEDS: ELIQUIS 5 MG PO ×2 (09:07→20:30)
[2023-12-11 15:30] VITALS: BP 138/70
--- NOTE | 2023-12-11 17:05 | W.PN.UPDATE ---
Update Note
Progress Note Update
Patient seen at bedside - was sleeping, did not awaken as he remains confused as per current records. Has been improving regarding rigidity and no episodes of agitation observed thus far. Will return tomorrow to assess further.
No medication changes at this time
[2023-12-11 19:00] VITALS: BP 113/70
[2023-12-11 23:00] VITALS: BP 150/81
[2023-12-12 08:24] VITALS: BP 141/72
--- NOTE | 2023-12-12 09:04 | W.PN.HOSP.TC ---
Today's Communication/Plan
-
Continue benzodiazepines and Sinemet. Discharge planning in progress
Assessment / Plan
Assessment / Plan
Physical exam:
General: Chronically ill
HEENT: Normocephalic, Atraumatic and Moist Mucous Membranes
Respiratory: Clear to Auscultation; Negative Wheezes, Rales or Rhonchi
Cardiac: Regular Rhythm and S1/S2
GI: Soft, Nontender and Nondistended
Musculoskeletal: No Clubbing, No Cyanosis and No Edema
Neuro: Awake, Alert and Disoriented, increased tone, no focal weakness.
Psych: Anxious, disorganized thoughts.
A/P:
Acute Toxic Metabolic Encephalopathy
- Imaging of the brain without acute abnormalities.
- On baclofen, chlorpromazine, dextromethorphan, loperamide, magnesium, Fleet enema, antibiotics, and other vitamins all which are on hold.
- I suspect that presentation is related to medications polypharmacy and also renal failure but other possibilities in the look out. Psychiatry consulted who in turn requested neurology consult.
- Restart lorazepam to avoid withdrawal.
-Holding lithium-defer to psych if and when to restart. [place] level upon admission 0.4
- Would observe off of abx as there is currently no evidence of pneumonia by CXR, labs, etc.
-Discussed with family at bedside on 12/07--> patient was very functional up until this July where his health has been declined. There were several diagnoses in question whether OCD and bipolar and also possibility of frontotemporal dementia but
later on this was refuted but still dementia such as Jaime-body or other is a possibility. He has seen neurology as outpatient just a couple weeks ago as per family the head of neurology at [place].
-PT OT eval and speech therapy
-Discussed with family, at bedside on 12/09 and they wanted to discuss further with psychiatry in terms of final psychiatry medications upon discharge.
-Psychiatry continue to follow
-Case management for discharge disposition
JACINTA:
-Creatinine 1.8 admission---> creatinine 1.1 last time checked
-Stop IV fluids
Benign Hypertension
- Stable. Continue current med regimen.
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
Bipolar Disorder/OCD
- Hold sedating meds acutely given mental status change.
- Follow for development of agitation / acute delirium during hospital stay.
-Neurology started him on Sinemet
CHF - Unknown Type
- No evidence of volume overload on today's exam.
- Patient is not on chronic diuretic therapy.
- Follow daily weights, I/Os, etc.
-Discontinue telemetry--> no events and he has been in sinus rhythm.
Unclear if arrhythmias such as A-fib since he is on Eliquis and atenolol but will gather more all medical information/records.
DVT Prophylaxis: On Eliquis
Code Status: Full
Anticipated Discharge: 24 - 48 hours
Subjective/Interval History
-
Date of Service: December 12, 2023
Patient alert but disoriented. No behavioral alterations. Afebrile
Objective Data
-
Vital Signs:
Vital Signs
Temp Pulse Resp BP Pulse Ox
99.0 F 50 14 141/72 100
12/12/23 08:24 12/12/23 08:24 12/12/23 08:24 12/12/23 08:24 12/12/23 08:24
I&O
12/11/23 12/12/23 12/13/23
06:59 06:59 06:59
Intake Total 1839 / 0 600 / 600 300 / 300
Balance 1840 / 1840 600 / 600 300 / 300
[2023-12-12] MEDS: TENORMIN 50 MG PO (09:26)
[2023-12-12] MEDS: SINEMET 25-100 1 TABLET PO ×3 (09:26→21:05)
[2023-12-12] MEDS: ELIQUIS 5 MG PO ×2 (09:26→21:04)
--- NOTE | 2023-12-12 13:07 | CM ---
Psychiatry following, medication adjustments.
Will need updated PT/OT notes. no auth needed.
plan: back to [facility] when stable.
(If d/c over the weekend, Leela is covering at [phone])
[facility]
report# [phone]
[2023-12-12 15:27] VITALS: BP 146/70
--- NOTE | 2023-12-12 17:57 | W.PN.UPDATE ---
Update Note
Progress Note Update
Patient seen at bedside - was sleeping, attempted to awaken but was sleeping quite soundly. Spoke to nursing who reported that pt was awake yelling at night, though was redirectable and not otherwise agitated or aggressive. Has been pleasant when
awake though remains confused and unable to engage in meaningful discussion. Continues to gradually improve in regard to rigidity, responding well to sinemet.
No medication changes at this time - would not resume psychotropics at this time given potential for worsening rigidity once again. Would only resume psychotropics if psychiatric symptoms return and are difficult to manage with behavioral
interventions, even then would proceed slowly and cautiously in coordination with neuro (outpatient).
[2023-12-12] MEDS: ATIVAN 0.5 MG PO (21:04)
[2023-12-12 23:13] VITALS: BP 153/78
[2023-12-13 05:35] VITALS: BP 127/71
[2023-12-13 07:25] VITALS: BP 127/62
[2023-12-13] MEDS: TENORMIN PO (08:50)
[2023-12-13] MEDS: SINEMET 25-100 1 TABLET PO ×2 (08:53→15:12)
[2023-12-13] MEDS: ELIQUIS 5 MG PO (08:53)
[2023-12-13 09:40] VITALS: BP 131/67; PULSE 68
--- NOTE | 2023-12-13 10:53 | PTCARENOTE ---
pt wakes to name oriented to self. states no pain. room air breath sounds diminished. pt ate breakfast. pt at bedside reviewed pt condition and plan of care.
--- NOTE | 2023-12-13 15:04 | W.PN.HOSP.TC ---
Today's Communication/Plan
-
DC
Assessment / Plan
Assessment / Plan
A/P:
Acute Toxic Metabolic Encephalopathy
- Imaging of the brain without acute abnormalities.
- On baclofen, chlorpromazine, dextromethorphan, loperamide, magnesium, Fleet enema, antibiotics, and other vitamins all which are on hold.
- suspected that presentation is related to medications polypharmacy and also renal failure but other possibilities in the look out. Psychiatry consulted who in turn requested neurology consult.
- Restart lorazepam to avoid withdrawal.
-Holding lithium-defer to psych if and when to restart. [place] level upon admission 0.4
- Would continue to observe off of abx as there is currently no evidence of pneumonia by CXR, labs, etc.
- Dr Antony Discussed with family at bedside on 12/07--> patient was very functional up until this July where his health has been declined. There were several diagnoses in question whether OCD and bipolar and also possibility of frontotemporal
dementia but later on this was refuted but still dementia such as Jaime-body or other is a possibility. He has seen neurology as outpatient just a couple weeks ago as per family the head of neurology at [facility].
-PT OT eval and speech therapy
-Dr Antony Discussed with family, at bedside on 12/09 and they wanted to discuss further with psychiatry in terms of final psychiatry medications upon discharge.
-Psychiatry input noted - no med rec at current time as no behavioural issues
-
JACINTA:
-Creatinine 1.8 admission---> creatinine 1.1 last time checked
-Stop IV fluids
Benign Hypertension
- Stable. Continue current med regimen.
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
Bipolar Disorder/OCD
- Hold sedating meds acutely given mental status change.
- Follow for development of agitation / acute delirium during hospital stay.
- Neurology started him on Sinemet
CHF - Unknown Type
- No evidence of volume overload on today's exam.
- Patient is not on chronic diuretic therapy.
- Follow daily weights, I/Os, etc.
-Discontinue telemetry--> no events and he has been in sinus rhythm.
Unclear if arrhythmias such as A-fib since he is on Eliquis and atenolol but will gather more all medical information/records.
DVT Prophylaxis: On Eliquis
Code Status: Full
Medically stable for DC to rehab
DW CM
Total time of dc 32 min
Anticipated Discharge: Today
Subjective/Interval History
-
Date of Service: December 13, 2023
patient is alert. Oriented to self and person.
Voicing no specific complaints. No agitation.
Discussed with RN-eating well and no behavioral issues.
Objective Data
-
Vital Signs:
Vital Signs
Temp Pulse Resp BP Pulse Ox
97.7 F 55 16 127/62 97
12/13/23 07:25 12/13/23 08:50 12/13/23 07:25 12/13/23 07:25 12/13/23 07:25
I&O
12/12/23 12/13/23 12/14/23
06:59 06:59 06:59
Intake Total 600 / 600 420 / 420
Balance 600 / 600 420 / 420
Review of Systems
-
Unable to obtain full review of systems at this time due to: Dementia
Physical Exam
-
General: Comfortable
Respiratory: Clear to Auscultation and Non Labored Respirations; Negative Accessory Resp Muscle Use
Cardiac: Regular Rhythm and S1/S2
Neuro: Awake, Alert and Oriented
Psych: Calm and Confused; Negative Agitated
--- NOTE | 2023-12-13 15:09 | W.DS.TRANS ---
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
-
Discharge Instructions:
Discharge Diagnosis/Procedures Dementia with change in mental status suspected
secondary to medication
Diet Regular
Additional Diets IDDSI 6 DIET
Activity As tolerated
Driving Restrictions No driving
Other Services PT,OT
Instructions:
Stand-Alone Forms:
Changes to Home Medications: Yes
Discharge Medications:
DC Medications w/original date entered in [employer]
acetaminophen 325 mg tablet 650 mg PO Q4H PRN mild pain/temp>101 12/07/23
apixaban 5 mg tablet 5 mg PO Q12 Blood Clot Prevention/Tx 12/07/23
ascorbic acid (vitamin C) 500 mg tablet (Vitamin C) 500 mg PO DAILY Supplement 12/07/23
atenolol 50 mg tablet 50 mg PO DAILY Blood Pressure 12/07/23
bisacodyl 10 mg rectal suppository (Dulcolax (bisacodyl)) 10 mg AR DAILY PRN if no bm in 24hrs after MOM 12/07/23
cholecalciferol (vitamin D3) 125 mcg (5,000 unit) tablet 125 mcg PO DAILY Supplement 12/07/23
famotidine 40 mg tablet 40 mg PO DAILY Gastrointestinal Issue 12/07/23
loperamide 2 mg capsule 2 mg PO DAILY PRN diarrhea 12/07/23
magnesium hydroxide 400 mg/5 mL oral suspension (Milk of Magnesia) 30 ml PO DAILY PRN if no bm after 3 days 12/07/23
multivitamin,tx-minerals 1 tab PO DAILY Supplement 12/07/23
sodium phosphates 19 gram-7 gram/118 mL enema (Fleet Enema) 118 ml AR DAILY PRN if no bm in 24hrs after suppository 12/07/23
carbidopa 25 mg-levodopa 100 mg tablet 1 tab PO TID #1 tab 12/13/23
lorazepam 0.5 mg tablet 0.5 mg PO Q6HPRN PRN agitation #12 tabs 12/13/23
Home Medication Changes
New med -Sinemet
Pending Results: No
--- NOTE | 2023-12-13 16:27 | CM ---
Patient for d/c back to [facility] today.
Facility and jeanette re transport time 6:45 pm.
IMM completed via phone.
[facility]
report# [id number]
--- NOTE | 2023-12-13 18:07 | PTCARENOTE ---
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
--- NOTE | 2023-12-13 18:15 | PTCARENOTE ---
pt going back to [facility]. attempted to call report several times. message left. discharge packet faxed.
--- NOTE | 2023-12-15 18:24 | W.DCSUMMARY ---
Discharge Summary
Discharge Data
Date of Admission: 12/08/23
Date of Discharge: 12/13/23
-
Pending Results: No
Hospital Course
Primary diagnosis:
Acute Toxic Metabolic Encephalopathy suspected secondary to medication related and Acute kidney injury.
Secondary diagnosis:
Dementia with behavioral disturbances
Essential hypertension
Patient on chronic anticoagulation Eliquis for possible Atrial fibrillation
Hospital course:
Patient with a dementia/bipolar disorder, hypertension and history of CHF presented from longterm because of change in mental status. He recently had antibiotics for possible pneumonia. snf records reveal several medication changes
including cefuroxime and Zithromax antibiotic, baclofen, chlorpromazine is noted to be duplicated, lorazepam was added.
There is evidence of JACINTA which I suspect are probably dehydration related creatinine improved from 1.8-1.1 with hydration alone.
Seen by both psychiatrist and neurologist. It was felt more TME from either medication changes or dehydration. Baclofen and chlorpromazine was kept on hold. Down the road could benefit sentiment to help with his rigidity but prefer not to start
this medication at the current time. 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 Noncontrast CT head was negative for
any acute findings. Psychiatrist would want to hold off any psychiatric medication at the current time.Would only resume psychotropics if psychiatric symptoms return and are difficult to manage with behavioral interventions, even then would proceed
slowly and cautiously in coordination with neuro (outpatient).
He did improve with his mentation and his somewhat with his cognition as well with hydration and holding the medications.
Once stable he was discharged back to rehab.
Consultants on board:
Neurology-Riley Mitchell
Psychiatry-Prema Georges
Discharge Plan
-
Patient Disposition: Shelter/SNF
Discharge Diagnosis/Procedures: Dementia with change in mental status suspected secondary to medication
Condition: Fair
Diet: Regular
Additional Diets: IDDSI 6 DIET
Activity: As tolerated
Driving Restrictions: No driving
Other Services: PT and OT
Activity Restrictions/Additional Instructions:
Wound Care Instructions Bilateral Heels- Clean with Betadine daily.
Fiber filled boots or keep heels off-loaded with pillows under calves
Air bed
Air cushion, gel cushion or roho cushion to wheelchair
Consider condom cath for moisture management
Encourage protein in diet
Follow up at wound care center call for an appointment or per care at [facility]
Referrals:
Toney Jovel MD [Family Provider] -
Prescriptions:
New
lorazepam 0.5 mg Tablet
0.5 mg PO Q6HPRN PRN (Reason: agitation) Qty: 12 0RF
carbidopa-levodopa 25-100 mg Tablet
1 tab PO TID Qty: 1 0RF
Continued
acetaminophen 325 mg Tablet
650 mg PO Q4H PRN (Reason: mild pain/temp>101)
loperamide 2 mg Capsule
2 mg PO DAILY PRN (Reason: diarrhea)
famotidine 40 mg Tablet
40 mg PO DAILY
magnesium hydroxide [Milk of Magnesia] 400 mg/5 mL Suspension
30 ml PO DAILY PRN (Reason: if no bm after 3 days)
ascorbic acid (vitamin C) [Vitamin C] 500 mg Tablet
500 mg PO DAILY
bisacodyl [Dulcolax (bisacodyl)] 10 mg Suppository
10 mg ME DAILY PRN (Reason: if no bm in 24hrs after MOM)
Fleet Enema 19-7 gram/118 mL Enema
118 ml ME DAILY PRN (Reason: if no bm in 24hrs after suppository)
atenolol 50 mg Tablet
50 mg PO DAILY
multivitamin,tx-minerals Tablet
1 tab PO DAILY
cholecalciferol (vitamin D3) 125 mcg (5,000 unit) Tablet
125 mcg PO DAILY
apixaban 5 mg Tablet
5 mg PO Q12
Discontinued
dextromethorphan-guaifenesin 10-100 mg/5 mL Syrup
10 ml PO Q6H PRN (Reason: congestion)
lorazepam 0.5 mg Tablet
0.25 mg PO HS
cefuroxime axetil 500 mg Tablet
500 mg PO BID
chlorpromazine 50 mg Tablet
150 mg PO HS
azithromycin [Zithromax] 500 mg Tablet
500 mg PO DAILY
Patient Comments:
12/07/2023: Start 12/06, for 3 days, stop 12/09
povidone-iodine [Betadine] 10 % Solution
1 applic TOPICAL PRN PRN (Reason: right heel soilage)
povidone-iodine [Betadine] 10 % Solution
1 applic TOPICAL DAILY
baclofen 5 mg Tablet
5 mg PO TID
Discharge Orders:
Discharge Patient (As Directed); Ordered 12/13/23
Ordered By: Shahzad Jarquin
Discharge Date and Time
Discharge Date/Time: 12/13/23 19:08
Print Language: BULGARIAN
== END 2023-12-13 19:08 | DRG 56 ==
LOC: 4 WEST ACU 05:12
PROVIDERS: Hospitalist; Physician Assistant Medical; ADMITTING PHYSICIAN Hospitalist; ATTENDING PHYSICIAN Internal Medicine; CONSULT PHYSICIAN Psychiatry & Neurology Psychiatry; CONSULT PHYSICIAN Student in an Organized Health Care Education/Training Program; EMERGENCY PHYSICIAN Emergency Medicine; FAMILY PHYSICIAN Internal Medicine
DX: G31.83 Neurocognitive disorder with Lewy bodies (principal); G92.8 Other toxic encephalopathy; J18.9 Pneumonia, unspecified organism; G23.1 Progressive supranuclear ophthalmoplegia [Steele-Richardson-Olszewski]; N17.9 Acute kidney failure, unspecified; I13.0 Hypertensive heart and chronic kidney disease with heart failure and stage 1 through stage 4 chronic kidney disease, or unspecified chronic kidney disease; F02.811 Dementia in other diseases classified elsewhere, unspecified severity, with agitation; F31.9 Bipolar disorder, unspecified; F42.9 Obsessive-compulsive disorder, unspecified; L89.626 Pressure-induced deep tissue damage of left heel; L89.616 Pressure-induced deep tissue damage of right heel; I50.9 Heart failure, unspecified; N18.9 Chronic kidney disease, unspecified; D50.9 Iron deficiency anemia, unspecified; K21.9 Gastro-esophageal reflux disease without esophagitis; E86.0 Dehydration; Z87.01 Personal history of pneumonia (recurrent); Z79.01 Long term (current) use of anticoagulants
CPT/HCPCS: 70450; 71045; 80048; 80053; 80178; 82607; 82746; 83605; 83735; 84443; 85025; 85027; 86803; 87040; 87070; 87147; 92610; 93005; 97530

== ENCOUNTER 2024-01-06 06:07 | Emergency (ER) | payer MEDICARE, BC, SELFPAY ==
[2024-01-06 06:09] VITALS: BP 114/93
[2024-01-06 06:19] LABS: Glucose - Point of Care 89 mg/dl (70-99)
--- NOTE | 2024-01-06 06:34 | ED.GENMED ---
History of Present Illness
General
Chief Complaint: Change in Mental Status
Source: patient, spouse and retirement
Exam Limitations: none
Time Seen by Provider: 01/06/24 06:16
Nursing documentation reviewed up to this point in time: agreed with
History of Present Illness
History of Present Illness:
The patient is a 78-year-old man who has a history of dementia and bipolar disorder. He arrives from [facility] for acute on chronic agitation throughout the night. [facility] reports that the patient commonly becomes restless
at night, however, he had a particularly bad night last night involving him constantly trying to get up out of a chair and having auditory hallucinations. The patient arrives with no complaints other than ' a hole in his finger'. I spoke to his
Mayda over the phone who reports that she wants to make sure he does not have a urinary tract infection and she also reports that he gets urinary tract infections quite often and is worried he might have a UTI. She reports that he previously
was agitated and restless and his medications were recently changed, which made his mental status improved. The patient does not offer much history, keeps calling out, but is consolable. reports that he fell twice yesterday, however, the
falls were witnessed and he did not hit his head or complain of any pain afterwards.
Past History
Past History
ED Past Medical History: CHF, Psychiatric and Other (Dementia)
ED Past Surgical History: Cardiac
Social History
Tobacco: Non-smoker
Alcohol: None
Drug: None
Personal:
Living: retirement
Employment: Other
Family History
Family History: Other
Review of Systems
Review of Systems
Allergies reviewed?: Yes
Unable to obtain full review of systems at this time due to: dementia
Other source history: retirement and other (, Gina Noble)
All Other Systems: Not applicable
Psychiatric: Reports hallucinations
Phy Exam
Physical Exam
Physical Exam:
Physical Exam
General: no apparent distress, patient is frequently asking questions over and over, lying on his side, appears comfortable. Atraumatic appearing face and head
Neck: supple. no meningeal signs. normal psoterior pharynx. Nontender
Heart: s1/s2 regular rate and rhythm, no murmur. equal radial pulses.
Lungs: no acute respiratory distress. clear bilaterally
Abdomen: normal bowel sounds. not tender. no CVAT, no vertebral spine tenderness
Neuro: alert and oriented to self only. no focal neurological deficits
Skin: no rash
Psychiatric: well kept. interactive and cooperative
Extremities: 2+ pitting edema bilateral lower extremities. No bony tenderness or deformity or soft tissue swelling of bilateral hands.
Course
Orders/Labs/Results
Orders:
Orders
01/06/24 06:41
Complete Blood Count/With Diff Urgent
Comprehensive Metabolic Panel Urgent
01/06/24 06:56
Urinalysis Reflex To Culture Urgent
Date Specimen was Collected: 01/06/24
Time Specimen was Collected: 06:48
Urine Microscopic Reflex Cult Urgent
01/06/24 07:27
0.9% Sodium Chloride 500 ml [Nss] 500 ml IV BOLUS
Abnormal Lab Results
01/06/24 01/06/24
06:41 06:56
RBC 3.39 L 10^6/uL
(4.70-6.10)
Hgb 9.4 L g/dL
(13.0-18.0)
Hct 29.3 L %
(39.0-52.0)
MCHC 32.1 L g/dL
(33.0-37.0)
RDW 18.1 H %
(11.5-14.5)
Absolute Lymphs (auto) 0.7 L 10^3/uL
(1.2-3.4)
Neutrophils % 78.8 H %
(42.2-75.2)
Lymphocytes % 11.1 L %
(20.5-51.1)
Chloride 111 H mmol/L
(98-107)
BUN 32 H mg/dl
(9-20)
Total Protein 5.7 L g/dl
(6.3-8.2)
Albumin 3.4 L g/dl
(3.5-5.0)
Ur Occult Blood Reflex 1+ A
(Negative)
Urine RBC 16-20 A /HPF
(0-2)
Urine Bacteria (Reflex) Few A
(Negative)
01/06/24 06:41
01/06/24 06:41
Vital Signs
Initial and Last Documented VS:
Initial Vital Signs
Temp Pulse Resp BP Pulse Ox
97.7 F 70 18 114/93 99
01/06/24 06:09 01/06/24 06:09 01/06/24 06:09 01/06/24 06:09 01/06/24 06:09
Last Documented Vital Signs
Temp Pulse Resp BP Pulse Ox
97.7 F 70 18 130/73 100
01/06/24 06:09 01/06/24 06:09 01/06/24 06:09 01/06/24 07:00 01/06/24 06:36
MDM/Problems Addressed
Differential Diagnosis Includes:
Acute dehydration, acute hyponatremia, UTI, dementia
MDM/Problems Addressed:
Patient presents with acute on chronic agitation
Chronic conditions affecting care:
Dementia
Acute Exacerbation and/or Progression of Chronic Illness:
Patient symptoms likely represent acute exacerbation of chronic dementia
Acute Exacerbation and/or Progression of Chronic Illness: Psychiatric illness
*Pulse Oximetry
Patient hypoxic: no
*EKG
Interpreted by ED Provider?: NA
*Athletics Director Interpretation
Rate: normal
Interpretation: normal
Rhythm: sinus
*Critical Care Note
Total Time (30-74mins, 75-104mins- exclusive of procedures): Not Applicable
Data Reviewed
Review of Other/Old Records Reveals: Discharge Summary (Discharge summary reviewed from 12/13/2023 when patient was admitted for acute kidney injury due to dehydration)
Source: spouse and retirement
Patient Management
Social determinants of health affecting care: Living situation and Strong social support
Escalation/DeEscalation of care consider admission/obs:
Patient remains comfortable. There is no sign of respiratory distress. Lungs are clear and there is no sign of pneumonia. Vital signs have been normal. Patient has a nonfocal neurological exam and there is no sign of stroke. There is no sign of
urinary tract infection. Patient does have mild dehydration for which she is getting IV fluids. In addition, he is also drinking water at the bedside.
ED Attending Note
-
Portions of this chart may have been created with voice recognition software.� Occasional wrong word or��sound alike� substitutions may have occurred due to the inherent limitations of voice recognition software.
Discharge Plan
Departure
Patient Disposition: Home (Routine Discharge)
Date of Disposition: 01/06/24
Time of Disposition: 08:20
Patient with high blood pressure during this ER visit?: No
Condition: Good
Covid-19: Not Applicable
Discharge Problem:
Mild dehydration
Instructions: Dehydration, Adult ED
Prescriptions:
No Action
acetaminophen 325 mg Tablet
650 mg PO Q4H PRN (Reason: mild pain/temp>101)
loperamide 2 mg Capsule
2 mg PO DAILY PRN (Reason: diarrhea)
famotidine 40 mg Tablet
40 mg PO DAILY
magnesium hydroxide [Milk of Magnesia] 400 mg/5 mL Suspension
30 ml PO DAILY PRN (Reason: if no bm after 3 days)
ascorbic acid (vitamin C) [Vitamin C] 500 mg Tablet
500 mg PO DAILY
bisacodyl [Dulcolax (bisacodyl)] 10 mg Suppository
10 mg DC DAILY PRN (Reason: if no bm in 24hrs after MOM)
Fleet Enema 19-7 gram/118 mL Enema
118 ml DC DAILY PRN (Reason: if no bm in 24hrs after suppository)
atenolol 50 mg Tablet
50 mg PO DAILY
multivitamin,tx-minerals Tablet
1 tab PO DAILY
cholecalciferol (vitamin D3) 125 mcg (5,000 unit) Tablet
125 mcg PO DAILY
apixaban 5 mg Tablet
5 mg PO Q12
lorazepam 0.5 mg Tablet
0.5 mg PO Q6HPRN PRN (Reason: agitation) Qty: 12 0RF
carbidopa-levodopa 25-100 mg Tablet
1 tab PO TID Qty: 1 0RF
Referrals:
Toney Jovel MD [Family Provider] -
Interventions
Interventions:
*Risk Screen - Suicide Last Done: 01/06/24 06:09
*General Assessment Last Done: 01/06/24 06:09
*Neglect/Abuse Screening Last Done: 01/06/24 06:09
ED- Fall Risk Assessment Last Done: 01/06/24 06:13
*ED COVID-19 Vaccine History Last Done: 01/06/24 06:16
ED- Neurological Assessment Last Done: 01/06/24 06:13
ED- Pulmonary Assessment Last Done: 01/06/24 06:15
ED Swallowing Screen Last Done: 01/06/24 06:13
Discharge Date and Time
Print Language: WOLOF
[2024-01-06 06:46] LABS: % Basophils 0.5 % (0-2); % Immature Granulocytes 0.2 % (0-0.5); % Lymphocytes 11.1 % (20.5-51.1); % Monocytes 8.4 % (1.7-9.3); % Neutrophils 78.8 % (42.2-75.2); Absolute Eosinophils 0.1 10^3/uL (0-0.7); Absolute Lymphocytes 0.7 10^3/uL (1.2-3.4); Absolute Monocytes 0.5 10^3/uL (0.1-0.6); Absolute Neutrophils 4.7 10^3/uL (1.4-6.5); Hematocrit 29.3 % (39.0-52.0); Hemoglobin 9.4 g/dL (13.0-18.0); Mean Corp Hgb Conc. 32.1 g/dL (33.0-37.0); Mean Corpuscular Hgb 27.7 pg (27.0-31.0); Mean Corpuscular Volume 86.4 fL (80.0-94.0); Mean Platelet Volume 8.7 fL (7.4-10.4); Nucleated Red Blood Cells % 0 % (-); Platelet Count 239 10^3/uL (130-400); Red Blood Cell Count 3.39 10^6/uL (4.70-6.10); Red Cell Dist. Width 18.1 % (11.5-14.5); White Blood Cell Count 5.9 10^3/uL (4.8-10.8)
[2024-01-06 07:00] VITALS: BP 130/73
[2024-01-06 07:02] LABS: Urine Albumin Negative (Neg - Trace); Urine Bilirubin Negative (Negative); Urine Character Clear (Clear); Urine Color Yellow; Urine Glucose Negative (Negative); Urine Ketone Negative (Negative); Urine Leukocyte Negative (Negative); Urine Nitrite Negative (Negative); Urine Occult Blood 1+ (Negative); Urine Specific Gravity 1.015 (<1.030); Urine Urobilinogen Negative (Neg - 1+)
[2024-01-06 07:20] LABS: Urine Bacteria Few (Negative); Urine Red Blood Cell 16-20 /HPF (0-2); Urine Squamous Cell 0-2 /LPF (Few); Urine White Cell 0-2 /HPF (0-5)
[2024-01-06 07:25] LABS: ALT (SGPT) 12 U/L (0-50); AST (SGOT) 32 U/L (17-59); Albumin 3.4 g/dl (3.5-5.0); Alkaline Phosphatase 81 U/L (38-126); Blood Urea Nitrogen 32 mg/dl (9-20); Calcium 9.3 mg/dl (8.4-10.2); Carbon Dioxide 25 mmol/L (22-30); Chloride 111 mmol/L (98-107); Glucose 84 mg/dl (70-99); Potassium 4.2 mmol/L (3.5-5.1); Sodium 143 mmol/L (135-145); Total Bilirubin 0.4 mg/dl (0.2-1.3); Total Protein 5.7 g/dl (6.3-8.2); eGFR 55.88
[2024-01-06] MEDS: NSS 500 IV (07:52)
[2024-01-06 08:00] VITALS: BP 137/78
[2024-01-06 09:00] VITALS: BP 129/63
[2024-01-06 10:00] VITALS: BP 135/58
== END 2024-01-06 10:45 | disposition home or self-care (01) ==
LOC: EMR 06:07
PROVIDERS: EMERGENCY PHYSICIAN Emergency Medicine; FAMILY PHYSICIAN Internal Medicine
DX: E86.0 Dehydration (principal); F03.90 Unspecified dementia, unspecified severity, without behavioral disturbance, psychotic disturbance, mood disturbance, and anxiety; F31.9 Bipolar disorder, unspecified
CPT/HCPCS: 99284; 96360; 80053; 81003; 81015; 82962; 85025

== ENCOUNTER 2024-01-20 15:39 | Inpatient (IN) | payer MEDICARE, BC, SELFPAY ==
[2024-01-20] VITALS (13 sets, daily range): BP systolic 90–125; BP diastolic 30–93; BMI 20.5
--- NOTE | 2024-01-20 12:21 | ED.GENMED ---
History of Present Illness
<Margo Lopez PA-C - Last Filed: 01/20/24 18:40>
General
Chief Complaint: Change in Mental Status
Source: patient
Exam Limitations: none
Time Seen by Provider: 01/20/24 12:19
Nursing documentation reviewed up to this point in time: agreed with
History of Present Illness
History of Present Illness:
78-year-old male with a past medical history of dementia, metabolic encephalopathy, hypertension, heart failure present emergency department today with concerns of cellulitis in the left leg and change in mental status. I spoke to staff from his
rehab facility [facility] he reports that patient with his history of dementia, is usually agitated and confused at baseline, however he normally can answer questions without difficulty and is usually able to communicate what is wrong and is able
to have a coherent conversation. Nurse reports that the past few days, patient started to have trailing off of his thoughts, would not respond to all questions, and would shout nonsensical phrases and repeat words he said multiple times. He has
been receiving doxycycline orally which was started on 01/18/2024. He is also been receiving IV fluids at the facility, nurse reports that he did have a fever at 1 point of 100.4. She states that he is also prone to UTIs. Nurse reports that he has
not had any complaints to her about anything specific. Patient also has chronic pressure wounds.
Past History
<Margo Lopez PA-C - Last Filed: 01/20/24 18:40>
Past History
ED Past Medical History: CHF, Psychiatric and Other (Dementia)
ED Past Surgical History: Cardiac
Social History
Tobacco: Non-smoker
Alcohol: None
Drug: None
Personal:
Living: penitentiary
Employment: Other
Family History
Family History: Other
Review of Systems
<Margo Lopez PA-C - Last Filed: 01/20/24 18:40>
Review of Systems
All Other Systems: ROS reviewed and negative except as documented in HPI and ROS
Phy Exam
<Mrago Lopez PA-C - Last Filed: 01/20/24 18:40>
Physical Exam
Physical Exam:
General: Patient is chronically ill-appearing but is nontoxic
Skin: Warm and dry, there is a 1 cm ulcer on the anterior surface of the left lower extremity with surrounding erythema and warmth. There is also a full-thickness ulcer around 4 cm in width at the left medial malleolus. There is small scattered
lesions on the right lower extremity that are not actively draining.
Head: Normocephalic, atraumatic
Eyes: Sclera non-icteric. EOMs intact. PERRLA.
Cardiac: Regular rate and rhythm, no murmurs.
Peripheral Vascular: No lower extremity swelling or edema. Distal pulses confirmed with doppler.
Pulm: Normal respiratory effort, no wheezes, rales, rhonchi
Abdomen: No abdominal tenderness to palpation, no palpable masses, no signs of trauma
Neuro: Patient oriented to person but not place or time. CN II-XII intact, no focal neurologic deficits.
Psychiatric: Appropriate mood and affect.
Course
<Margo Lopez PA-C - Last Filed: 01/20/24 18:40>
Orders/Labs/Results
Orders:
Orders
01/20/24 11:59
Electrocardiogram (*1) Urgent
Reason for Study: Other
Other Reason for Exam: change in MS
EKG- Treatment ONCE
01/20/24 12:08
C-Reactive Protein Urgent
Comment: ADD ON
CMP [Comprehensive Metabolic Panel] Urgent
Complete Blood Count/With Diff Urgent
Erythrocyte Sed Rate Urgent
Comment: ADD ON
Lactic Acid Urgent
Manual Differential Urgent
Urinalysis Reflex To Culture Urgent
Date Specimen was Collected: 01/20/24
Time Specimen was Collected:
Urine Microscopic Reflex Cult Urgent
Urine Culture Urgent
ELE Source: U
Specimen Description:
Date Specimen was Collected: 01/20/24
Time Specimen was Collected:
01/20/24 12:38
CR Foot - Left 2 Views Urgent
Comment:
Reason For Exam: left medial ankle ulcer
CR Leg Tibia/fibula Left 2 Vw Urgent
Comment:
Reason For Exam: full thickness ulcers
01/20/24 12:40
Acetaminophen 1000MG/100Ml [Ofirmev] 1,000 mg in 100 ml IV ONCE
Acetaminophen IV Indication:: Targeted Temp Management
01/20/24 12:42
Add On- LAB Urgent
Tests Added?: ESR and CRP
Acetaminophen 1000MG/100Ml [Ofirmev] 1,000 mg in 100 ml .ROUTE .STK-MED
01/20/24 13:39
Piperacillin/Tazo 2.25 Gram [Zosyn] 2.25 grams in 50 ml IV NOW
01/20/24 13:41
Vancomycin [Vancocin] 1,500 mg 0.9% Sodium Chloride [Nss] 20 ml 0.9% Sodium Chloride 250 ml [Nss] 250 ml IV NOW
01/20/24 13:53
0.9% Sodium Chloride 500 ml [Nss] 500 ml IV BOLUS
01/20/24 13:59
Aspirin 325 mg PO NOW STA
01/20/24 Dinner
NPO
Allow oral meds: No
Allow clear liquids: No
01/20/24 15:10
Admit/Transfer Patient As Directed
Co-Sign Provider:
Level of Care: Inpatient admission
Assign to:: IMU- Intermediate Care
Physician / Group: sepsis
Diagnosis: cellulitis
Reason for Hospitalization: IV abx, possible pressors
Expected length of stay greater than two midnights?: Yes
ELOS- Estimated Length of Stay in days: 4
I certify the patient meets the requirements for IP care: Yes
PRN Pain Medication Management As Directed
May give lesser potent ordered pain med per pt: Yes
preference::
Protocol:: Medication orders for pain may be administered in a
manner that supports deferring to patient preference
when the pt is:
-Requesting an ordered lesser potent pain medication.
Least to most potent pain medications are defined as:
acetaminophen < NSAID < tramadol < opioids (morphine,
oxycodone, hydromorphone).
- Requesting a lesser dose of the same medication IF
ORDERED.
- Requesting a less intrusive route of administration
if both routes are prescribed by the provider (PO <
IV).
01/20/24 15:16
Code Status As Directed
Resuscitation Status: Full Code
01/20/24 16:08
0.9% Sodium Chloride 1000 ml [Nss] 1,000 ml IV 125 mls/hr
VANCOMYCIN Pharmacy to Dose [VANCOCIN Pharmacy to Dose] 1 each Pharmacy To Prepare [Call Pharmacy To Prepare] 0 ml IV PER PROTOCOL
01/20/24 16:08
INFECTIOUS DISEASE CONSULT Routine
Consulting Provider: Sigrid Molina
Was physician already notified: Yes
VTE Contraindication Routine
VTE Mechanical Device Contraindication: Dermatitis
Pharmocologic Contraindication: Renal impairment
Activity As Directed
Activity Level: As Tolerated
Intake/ Output As Directed
Frequency: Per unit guidelines
Vital Signs As Directed
Frequency: Per unit guidelines
O2 Therapy [RESP] Routine
Titrate/Wean O2 to maintain O2 sat greater than (%): 93
01/21/24 06:00
Complete Blood Count/No Diff IN AM
Comprehensive Metabolic Panel IN AM
01/21/24 08:00
Pantoprazole [Protonix IV] 40 mg IV DAILY
Abnormal Lab Results
01/20/24
12:08
WBC 21.4 H 10^3/uL
(4.8-10.8)
RBC 3.09 L 10^6/uL
(4.70-6.10)
Hgb 8.5 L g/dL
(13.0-18.0)
Hct 25.4 L %
(39.0-52.0)
RDW 17.7 H %
(11.5-14.5)
Abs Neuts (Manual) 21.1 H 10^3/uL
(1.4-6.5)
Segmented Neutrophils 89 H %
(42-75)
Band Neutrophils 10 H %
(0-3)
Lymphocytes (Manual) 0 L %
(20-51)
Monocytes (Manual) 1 L %
(2-9)
ESR 39 H mm/hour
(0-20)
Sodium 134 L mmol/L
(135-145)
BUN 67 H mg/dl
(9-20)
Creatinine 2.3 H mg/dL
(0.7-1.3)
Glucose 114 H mg/dl
(70-99)
AST 178 H U/L
(17-59)
ALT 51 H U/L
(0-50)
Alkaline Phosphatase 161 H U/L
(38-126)
C-Reactive Protein > 270.00 H mg/L
(0.0-10.00)
Total Protein 5.1 L g/dl
(6.3-8.2)
Albumin 2.7 L g/dl
(3.5-5.0)
Urine Ketones Trace A
(Negative)
Leukocyte Esterase Rfl Trace A
(Negative)
Urine Bacteria (Reflex) Moderate A
(Negative)
01/20/24 12:08
01/20/24 12:08
Vital Signs
Initial and Last Documented VS:
Initial Vital Signs
Temp Pulse Resp BP Pulse Ox
99.8 F 70 19 123/93 96
01/20/24 12:00 01/20/24 12:00 01/20/24 12:00 01/20/24 12:00 01/20/24 12:00
Last Documented Vital Signs
Temp Pulse Resp BP Pulse Ox
98.1 F 73 19 120/65 97
01/20/24 16:30 01/20/24 18:00 01/20/24 18:00 01/20/24 18:00 01/20/24 18:00
<Dave Soliman, DO - Last Filed: 01/20/24 14:28>
Orders/Labs/Results
Orders:
Orders
01/20/24 11:59
Electrocardiogram (*1) Urgent
Reason for Study: Other
Other Reason for Exam: change in MS
EKG- Treatment ONCE
01/20/24 12:08
C-Reactive Protein Urgent
Comment: ADD ON
CMP [Comprehensive Metabolic Panel] Urgent
Complete Blood Count/With Diff Urgent
Erythrocyte Sed Rate Urgent
Comment: ADD ON
Lactic Acid Urgent
Manual Differential Urgent
Urinalysis Reflex To Culture Urgent
Date Specimen was Collected: 01/20/24
Time Specimen was Collected: 11:59
Urine Microscopic Reflex Cult Urgent
Urine Culture Urgent
ELE Source: U
Specimen Description:
Date Specimen was Collected: 01/20/24
Time Specimen was Collected: 11:59
01/20/24 12:38
CR Foot - Left 2 Views Urgent
Comment:
Reason For Exam: left medial ankle ulcer
CR Leg Tibia/fibula Left 2 Vw Urgent
Comment:
Reason For Exam: full thickness ulcers
01/20/24 12:40
Acetaminophen 1000MG/100Ml [Ofirmev] 1,000 mg in 100 ml IV ONCE
Acetaminophen IV Indication:: Targeted Temp Management
01/20/24 12:42
Add On- LAB Urgent
Tests Added?: ESR and CRP
Acetaminophen 1000MG/100Ml [Ofirmev] 1,000 mg in 100 ml .ROUTE .STK-MED
01/20/24 13:39
Piperacillin/Tazo 2.25 Gram [Zosyn] 2.25 grams in 50 ml IV NOW
01/20/24 13:41
Vancomycin [Vancocin] 1,500 mg 0.9% Sodium Chloride [Nss] 20 ml 0.9% Sodium Chloride 250 ml [Nss] 250 ml IV NOW
01/20/24 13:53
0.9% Sodium Chloride 500 ml [Nss] 500 ml IV BOLUS
01/20/24 13:59
Aspirin 325 mg PO NOW STA
01/20/24 Dinner
NPO
Allow oral meds: No
Allow clear liquids: No
01/20/24 15:10
Admit/Transfer Patient As Directed
Co-Sign Provider:
Level of Care: Inpatient admission
Assign to:: IMU- Intermediate Care
Physician / Group: sepsis
Diagnosis: cellulitis
Reason for Hospitalization: IV abx, possible pressors
Expected length of stay greater than two midnights?: Yes
ELOS- Estimated Length of Stay in days: 4
I certify the patient meets the requirements for IP care: Yes
PRN Pain Medication Management As Directed
May give lesser potent ordered pain med per pt: Yes
preference::
Protocol:: Medication orders for pain may be administered in a
manner that supports deferring to patient preference
when the pt is:
-Requesting an ordered lesser potent pain medication.
Least to most potent pain medications are defined as:
acetaminophen < NSAID < tramadol < opioids (morphine,
oxycodone, hydromorphone).
- Requesting a lesser dose of the same medication IF
ORDERED.
- Requesting a less intrusive route of administration
if both routes are prescribed by the provider (PO <
IV).
01/20/24 15:16
Code Status As Directed
Resuscitation Status: Full Code
01/20/24 16:08
0.9% Sodium Chloride 1000 ml [Nss] 1,000 ml IV 125 mls/hr
VANCOMYCIN Pharmacy to Dose [VANCOCIN Pharmacy to Dose] 1 each Pharmacy To Prepare [Call Pharmacy To Prepare] 0 ml IV PER PROTOCOL
01/20/24 16:08
INFECTIOUS DISEASE CONSULT Routine
Consulting Provider: Sigrid Molina
Was physician already notified: Yes
VTE Contraindication Routine
VTE Mechanical Device Contraindication: Dermatitis
Pharmocologic Contraindication: Renal impairment
Activity As Directed
Activity Level: As Tolerated
Intake/ Output As Directed
Frequency: Per unit guidelines
Vital Signs As Directed
Frequency: Per unit guidelines
O2 Therapy [RESP] Routine
Titrate/Wean O2 to maintain O2 sat greater than (%): 93
01/21/24 06:00
Complete Blood Count/No Diff IN AM
Comprehensive Metabolic Panel IN AM
01/21/24 08:00
Pantoprazole [Protonix IV] 40 mg IV DAILY
Abnormal Lab Results
01/20/24
12:08
WBC 21.4 H 10^3/uL
(4.8-10.8)
RBC 3.09 L 10^6/uL
(4.70-6.10)
Hgb 8.5 L g/dL
(13.0-18.0)
Hct 25.4 L %
(39.0-52.0)
RDW 17.7 H %
(11.5-14.5)
Abs Neuts (Manual) 21.1 H 10^3/uL
(1.4-6.5)
Segmented Neutrophils 89 H %
(42-75)
Band Neutrophils 10 H %
(0-3)
Lymphocytes (Manual) 0 L %
(20-51)
Monocytes (Manual) 1 L %
(2-9)
ESR 39 H mm/hour
(0-20)
Sodium 134 L mmol/L
(135-145)
BUN 67 H mg/dl
(9-20)
Creatinine 2.3 H mg/dL
(0.7-1.3)
Glucose 114 H mg/dl
(70-99)
AST 178 H U/L
(17-59)
ALT 51 H U/L
(0-50)
Alkaline Phosphatase 161 H U/L
(38-126)
C-Reactive Protein > 270.00 H mg/L
(0.0-10.00)
Total Protein 5.1 L g/dl
(6.3-8.2)
Albumin 2.7 L g/dl
(3.5-5.0)
Urine Ketones Trace A
(Negative)
Leukocyte Esterase Rfl Trace A
(Negative)
Urine Bacteria (Reflex) Moderate A
(Negative)
01/20/24 12:08
01/20/24 12:08
Vital Signs
Initial and Last Documented VS:
Initial Vital Signs
Temp Pulse Resp BP Pulse Ox
99.8 F 70 19 123/93 96
01/20/24 12:00 01/20/24 12:00 01/20/24 12:00 01/20/24 12:00 01/20/24 12:00
Last Documented Vital Signs
Temp Pulse Resp BP Pulse Ox
98.1 F 73 19 120/65 97
01/20/24 16:30 01/20/24 18:00 01/20/24 18:00 01/20/24 18:00 01/20/24 18:00
<Margo Lopez PA-C - Last Filed: 01/20/24 18:40>
MDM/Problems Addressed
Differential Diagnosis Includes:
ddx include cellulitis, sepsis, bacteremia, chronic venous insufficiency, chronic arterial insufficiency
MDM/Problems Addressed:
Cellulitis, altered mental status:
78-year-old male with a past medical history of dementia, metabolic encephalopathy, hypertension, heart failure present emergency department today with concerns of cellulitis in the left leg and change in mental status. I spoke to staff from his
rehab facility [facility] he reports that patient with his history of dementia, is usually agitated and confused at baseline, however he normally can answer questions without difficulty and is usually able to communicate what is wrong and is able
to have a coherent conversation. Patient has also been failing outpatient doxycycline, he has been on this for 3 days. He has had fevers on and off as the facility. Patient today appears chronically ill on exam, he does not answer many questions
for me, he is oriented to person. His left lower extremity is erythematous with ulceration. Concern for possible osteo as well. Inflammatory markers elevated. X-ray of foot shows no changes concerning for osteo, will likely need MRI for better
evaluation. CBC demonstrates leukocytosis. Will start Vanc and Zosyn. Patient referred to admission for hospitalist.
Chronic conditions affecting care:
dementia, metabolic encephalopathy, hypertension, heart failure
Acute Exacerbation and/or Progression of Chronic Illness:
dementia
<Margo Lopez PA-C - Last Filed: 01/20/24 18:40>
*Pulse Oximetry
Patient hypoxic: no
*Critical Care Note
Total Time (30-74mins, 75-104mins- exclusive of procedures): Not Applicable
Data Reviewed
Review of Other/Old Records Reveals: Records (Reviewed ER physician documentation from 01/06/2024) and Discharge Summary (Reviewed discharge summary from 12/15/2023 where patient was seen for metabolic encephalopathy ultimately likely from dehydration
and polypharmacy)
Source: patient and records
Prescriptions/Medications Considered But Not Given:
n/a
Further Testing Considered But Not Given:
n/a
<Margo Lopez PA-C - Last Filed: 01/20/24 18:40>
Patient Management
Escalation/DeEscalation of care consider admission/obs:
Admission indicated
<Margo Lopez PA-C - Last Filed: 01/20/24 18:40>
Update Note
Update Note:
12:56 pm-- Attempted to call patient's penitentiary
ED Attending Note
<Margo Lopez PA-C - Last Filed: 01/20/24 18:40>
-
Portions of this chart may have been created with voice recognition software.� Occasional wrong word or��sound alike� substitutions may have occurred due to the inherent limitations of voice recognition software.
<Dave Soliman, - Last Filed: 01/20/24 14:28>
ED Attending Note
Patient seen and examined by attending physician: Yes
I performed a history and physical exam of patient and discussed management with resident, I reviewed resident's note and agree with documented findings and plan of care.: Yes
ED Attending Note:
I have reviewed and agree with history and treatment plan by Margo Lopez. My exam revealed 78-year-old male, sleeping at this time. Rectal temp 99.8. Left lower leg erythematous cellulitis and open wound healed. Admit to hospitalist. IV
Zosyn and vancomycin given. Patient also with acute renal failure.
Discharge Plan
Departure
Patient Disposition: Admit
Date of Disposition: 01/20/24
Time of Disposition: 14:23
Admit to: Med/Surg
Presentation/result/management discussed w/ accepting MD/DO: Hospitalist
Patient with high blood pressure during this ER visit?: No
Condition: Good
Discharge Problem:
Acute on chronic alteration in mental status, Cellulitis
Interventions
Interventions:
*Risk Screen - Suicide Last Done: 01/20/24 12:01
*Neglect/Abuse Screening Last Done: 01/20/24 12:01
ED- Fall Risk Assessment Last Done: 01/20/24 12:40
*ED COVID-19 Vaccine History Last Done: 01/20/24 12:01
*Nursing Disposition Last Done: 01/20/24 16:17
ED-Skin Assessment Last Done: 01/20/24 12:02
ED- Pulmonary Assessment Last Done: 01/20/24 12:04
ED-Psychological Assessment Last Done: 01/20/24 12:25
ED- Neurological Assessment Last Done: 01/20/24 12:01
ED- Cardiac Assessment Last Done: 01/20/24 12:03
ED Swallowing Screen Last Done: 01/20/24 12:54
Discharge Date and Time
Discharge Date/Time: 01/20/24 16:17
[2024-01-20 12:32] LABS: Hematocrit 25.4 % (39.0-52.0); Hemoglobin 8.5 g/dL (13.0-18.0); Mean Corp Hgb Conc. 33.5 g/dL (33.0-37.0); Mean Corpuscular Hgb 27.5 pg (27.0-31.0); Mean Corpuscular Volume 82.2 fL (80.0-94.0); Mean Platelet Volume 9.8 fL (7.4-10.4); Platelet Count 186 10^3/uL (130-400); Red Blood Cell Count 3.09 10^6/uL (4.70-6.10); Red Cell Dist. Width 17.7 % (11.5-14.5); White Blood Cell Count 21.4 10^3/uL (4.8-10.8)
[2024-01-20 12:34] LABS: Urine Albumin Trace (Neg - Trace); Urine Bilirubin Negative (Negative); Urine Character Clear (Clear); Urine Color Yellow; Urine Glucose Negative (Negative); Urine Ketone Trace (Negative); Urine Leukocyte Trace (Negative); Urine Nitrite Negative (Negative); Urine Occult Blood Negative (Negative); Urine Specific Gravity 1.015 (<1.030); Urine Urobilinogen Negative (Neg - 1+)
[2024-01-20 12:36] LABS: Lactic Acid 1.8 mmol/L (0.7-2.0)
[2024-01-20 12:37] LABS: ALT (SGPT) 51 U/L (0-50); AST (SGOT) 178 U/L (17-59); Albumin 2.7 g/dl (3.5-5.0); Alkaline Phosphatase 161 U/L (38-126); Blood Urea Nitrogen 67 mg/dl (9-20); Calcium 8.4 mg/dl (8.4-10.2); Carbon Dioxide 23 mmol/L (22-30); Chloride 105 mmol/L (98-107); Glucose 114 mg/dl (70-99); Potassium 4.5 mmol/L (3.5-5.1); Sodium 134 mmol/L (135-145); Total Bilirubin 0.6 mg/dl (0.2-1.3); Total Protein 5.1 g/dl (6.3-8.2); eGFR 28.18
[2024-01-20] MEDS: OFIRMEV 100 IV (12:42)
--- NOTE | 2024-01-20 12:55 | EDRN ---
pt could not comprehend instructions
[2024-01-20 13:26] LABS: Urine Bacteria Moderate (Negative); Urine Red Blood Cell 0-2 /HPF (0-2)
[2024-01-20 13:50] LABS: Absolute Neutrophils -Man Diff 21.1 10^3/uL (1.4-6.5); Anisocytosis Slight; Band Neutrophils 10 % (0-3); Hypochromasia 1+; Lymphocytes 0 % (20-51); Monocytes 1 % (2-9); Normal RBC Morphology No; Platelets Checked Yes; Polychromasia Slight; Segmented Neutrophils 89 % (42-75)
[2024-01-20 13:51] LABS: Ovalocytes 1+; Total Cells Counted 100
[2024-01-20] MEDS: ZOSYN 50 IV ×2 (14:12→20:33)
[2024-01-20] MEDS: NSS 500 IV (14:12)
[2024-01-20] MEDS: VANCOCIN 300 MG IV (14:21)
[2024-01-20] MEDS: VANCOCIN 300 ML IV (14:21)
[2024-01-20 14:56] LABS: Erythrocyte Sed Rate 39 mm/hour (0-20)
--- NOTE | 2024-01-20 15:09 | CM ---
Patient seen at bedside in ED. Patient was a patient at [facility] since 10/26 with a prior hospitalization in december. Patient code status at the SNF was full code. Patient was a Short term Care patient and plan was for discharge home tomorrow with
patient . CM spoke with Admissions who stated that patient could return to SNF but plan had been for him to go home with , however patient recently had a decline and was talking about paying privately. CM will reach out to patient
to review plan for discharge. At the facility patient PCP is Dr. Jovel and he uses the Pharmacy from the facility. CM will continue to follow for discharge planning needs.
Plan; return to SNF pending medical treatment plan
[2024-01-20 15:25] LABS: C-Reactive Protein > 270.00 mg/L (0.0-10.00)
--- NOTE | 2024-01-20 15:33 | HPS.HSE ---
Family Physician
-
Family Physician: Toney Jovel MD
Chief Complaint
-
Change in mental status
History of Present Illness
Patient is a 78-year-old male from local [facility] who has been started on oral ciprofloxacin and doxycycline at the [facility] along with IV fluids for presumed cellulitis of his left leg. He cannot contribute to his history of present
illness nor past medical history. Information has been obtained from reviewing the ED notes and chart. Patient has a history of dementia with metabolic encephalopathy, bipolar disorder who at baseline is usually agitated, confused but can normally
answer questions and is able to communicate. Over the past few days prior to admission, he would not respond, which showed nonsensical phrases and repeat words. Patient was noted to have a fever of 100.4 and his nursing facility states he is prone
to urinary tract infections. Patient has chronic pressure wounds as well.
Workup in the emergency department finds him to have sepsis (white blood cell count of 21,000 with left shift, acute hypoxemia, acute kidney injury and transaminitis--source appears to be left lower extremity). Urinalysis is positive for ketones,
leukocyte Estrace, and moderate bacteria. He has 6-10 white blood cells per high-power field. He has received IV vancomycin and IV Zosyn. Patient is being admitted.
Medical History
Past Medical History
Past Medical History: Reports Other
Additional Past Medical History:
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
Bipolar Disorder
Progressive super nuclear palsy
Iron Deficiency Anemia
Essential hypertension
CHF - Unknown Type
Pressure injuries with unstageable heel ulcers in the past
Chronic kidney disease stage not listed
Past Surgical History: Reports Other
Additional Past Surgical History:
Unknown
Social History
Unable to obtain full social history at this time due to: Dementia
Family History
Family History: Unable to Obtain
Allergies / Home Medications
Allergies reflects when Allergies were last updated in Dr. Scribbles.
Home Medications with original date entered in Dr. Scribbles
Allergy/Medication List:
Allergies
Allergy/AdvReac Type Severity Reaction Status Date / Time
No Known Allergies Allergy Verified 01/06/24 06:13
Home Medications
acetaminophen 325 mg tablet 650 mg PO Q4H PRN mild pain/temp>101 12/07/23
apixaban 5 mg tablet 5 mg PO Q12 Blood Clot Prevention/Tx 12/07/23
ascorbic acid (vitamin C) 500 mg tablet (Vitamin C) 500 mg PO DAILY Supplement 12/07/23
atenolol 50 mg tablet 50 mg PO DAILY Blood Pressure 12/07/23
bisacodyl 10 mg rectal suppository (Dulcolax (bisacodyl)) 10 mg NC DAILY PRN if no bm in 24hrs after MOM 12/07/23
cholecalciferol (vitamin D3) 125 mcg (5,000 unit) tablet 125 mcg PO DAILY Supplement 12/07/23
famotidine 40 mg tablet 40 mg PO DAILY Gastrointestinal Issue 12/07/23
loperamide 2 mg capsule 2 mg PO Q4HPRN PRN diarrhea 12/07/23
magnesium hydroxide 400 mg/5 mL oral suspension (Milk of Magnesia) 30 ml PO DAILY PRN if no bm after 3 days 12/07/23
multivitamin,tx-minerals 1 tab PO DAILY Supplement 12/07/23
sodium phosphates 19 gram-7 gram/118 mL enema (Fleet Enema) 118 ml NC DAILY PRN if no bm in 24hrs after suppository 12/07/23
carbidopa 25 mg-levodopa 100 mg tablet 1 tab PO TID #1 tab 12/13/23
Calcium Alginate Wound Care 1 applic topical DAILY LLE wound 01/20/24
baclofen 5 mg tablet 2.5 mg PO BID Muscle Spasms 01/20/24
ciprofloxacin HCl 250 mg tablet (Cipro) 250 mg PO BID UTI 01/20/24
doxycycline hyclate 100 mg tablet 100 mg PO BID LLE cellulitis 01/20/24
melatonin 3 mg tablet 3 mg PO HS insomnia 01/20/24
povidone-iodine 10 % topical solution (Betadine) 1 applic topical QIDPRN PRN Bilateral heal wound soilage 01/20/24
sertraline 25 mg tablet 25 mg PO DAILY obsessive-compulsive diso 01/20/24
Review of Systems
-
Unable to obtain full review of systems at this time due to: Dementia
Physical Exam
Vital Signs
Vital Signs
Temp Pulse Resp BP Pulse Ox
99.8 F 70 19 111/60 95
01/20/24 12:00 01/20/24 14:00 01/20/24 14:00 01/20/24 14:00 01/20/24 14:00
Physical Exam
General: Other (Chronically ill-appearing male in no apparent distress)
HEENT: NormoCephalic, Atraumatic and Oxygen
Respiratory: Clear; No Wheezes, Rales, Rhonchi or Crackles
Cardiac: S1/S2 and Regular Rhythm; No Murmur
GI: Soft, Non Tender, Non Distended and Normal Bowel Sounds
Genito-urinary: Alejandra
Musculoskeletal: No Clubbing, No Cyanosis and Edema, Left Lower Extremity (Tender to palpation)
Skin: Warm and Other (Left lower extremity with erythema, warm to touch, no open areas or oozing noted, tender to palpation)
Neuro: Other (Sleeping on stretcher); No Awake, Alert, Oriented or Sedated
Psych: Calm
Laboratory Results
-
01/20/24 12:08
01/20/24 12:08
Laboratory Results
Lactic Acid 1.8 mmol/L (0.7-2.0) 01/20/24 12:08
Total Bilirubin 0.6 mg/dl (0.2-1.3) 01/20/24 12:08
AST 178 U/L (17-59) H 01/20/24 12:08
ALT 51 U/L (0-50) H 01/20/24 12:08
Alkaline Phosphatase 161 U/L (38-126) H 01/20/24 12:08
Data Reviewed
-
Lab Data: Labs Reviewed by me
Impression/Plan
-
Patient is a 78-year-old male
Holding all oral medications at this time until evaluation by speech
Sepsis with toxic metabolic encephalopathy--unclear source--leaning towards left lower extremity with cellulitis although urinary tract infection possible with positive urinalysis (moderate bacteria and trace leukocyte esterase)--patient also has
relative hypotension with blood pressures 90s over 60s--ADMIT to IMU--urine culture pending, x-ray of the tibia and fibula did not show any foreign bodies--inflammatory markers elevated, trend--continue IV vancomycin with pharmacy to dose and IV
Zosyn for now--consult ID--consideration for blood cultures at their discretion
Acute kidney injury on chronic kidney disease presumed stage III--appears baseline creatinine is approximately 1.3--creatinine on admission is 2.3--appears to have Alejandra catheter placed--continue IV fluids--May need pressor support--consideration
for renal consult if creatinine does not improve with IV fluids
Transaminitis--possibly due to sepsis--patient has no abdominal pain on palpation--no organomegaly that I can appreciate--consideration for CT scan abdomen pelvis versus ultrasound abdomen complete--
Anemia--likely of chronic disease--hemoglobin on admission is 8.5--expect drop with IV fluid administration--check iron studies
Hyponatremia--lower limit of normal 135, patient presents at 134--follow for now
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
History of bipolar 1--consideration for psych consult--patient on sertraline
History of congestive heart failure unknown type--consideration for echocardiogram to be done this admission
Patient on chronic anticoagulation therapy with Eliquis--for presumed paroxysmal atrial fibrillation although cannot verify this
Essential hypertension--hold BP meds as patient somewhat hypotensive--continue IV fluids
DVT prophylaxis--hold Eliquis for now--cannot prescribe sequential compression devices with patient's left lower extremity cellulitis and tenderness to palpation
CODE STATUS--appears to be full code
--- NOTE | 2024-01-20 15:56 | CON.ID ---
Consultation
-
Date/Time Consultation Requested: 01/20/24 15:32
Date/Time Consultation Performed: 01/20/24 15:57
Requesting Provider: Dr Guerrero
Performing Provider: Dr Molina
Reason for Consultation: Change in mental status; are blood cultures required
Chief Complaint / Past History
Chief Complaint
AMS
History of Present Illness
Mr Noble is a 78 year old male with history of dementia with lewy bodies with behavioral disturbance/PSNP, bipolar disorder, pressure wound to the right heel and chronic wound on the L anterior santana with eryrhmea adn few petechiae present on
arrival, recurrent UTI Outpatient medications inlcude baclofen BID scedueld, carbidopa-levodopa, sertraline 25 mg PO qday. At baseline he is able to provide some history however not at the present time. There was concern for cellulitis outpatient
and patient was treated with doxycycline and ciprofloxacin. He is hard of hearing but was able to give me history. Reports no cough, abdominal pain/dysuria.
Since arrival here patient has been afebrile, bp stable on the record (though hospitalist shared when she saw that patient 90/60 on the bedside monitor), rr teens, pulse 70s on atenolol, wbc 21, hgb 8.5, plt 186, cr 2.3 from his baseline of 1.3,
lactic acid 1.8, t bili 0.6, ast 178, alt 51, alk phos 161, crp >270, UA with minimal pyuria and moderate bacteria, urine culture has been sent, 01/19 foot/tib/fib xray: ulceration noted, no evidnce of osteomyelitis on limited study. Patient
recently shown to be colonized with MRSA on nasal screen 12/08/23.
Past History
Additional Past Medical History:
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
Bipolar Disorder
Progressive super nuclear palsy
Iron Deficiency Anemia
Essential hypertension
CHF - Unknown Type
Pressure injuries with unstageable heel ulcers in the past
Chronic kidney disease stage not listed
Additional Past Surgical History:
Unknown
Allergy History:
No Known Allergies Allergy (Verified 01/06/24 06:13)
Medications Reviewed: Yes
Social History
Tobacco: Non-Smoker
Alcohol: None
Drug: None
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
Family History
Family History: Not Pertinent
Review of Systems
Review of Systems
General: Negative Fever or Chills
All systems: All other systems were reviewed and were negative
Vital Signs
Temp Pulse Resp BP Pulse Ox
99.8 F 70 19 111/60 95
01/20/24 12:00 01/20/24 14:00 01/20/24 14:00 01/20/24 14:00 01/20/24 14:00
Physical Exam
Physical Exam
Constitutional: No Acute Distress
Cardiovascular: Regular Rate and S1/S2; Negative Murmur or Rub
Pulmonary: Clear and Symmetric; Negative Wheezes, Rales or Rhonchi
Gastrointestinal: Soft, Non Tender, Non Distended and Normal Bowel Sounds
Skin: Warm and Dry; Negative Jaundice
Wound: Other (bilateral heels - unstagable, additionally ovoid wound on the distal L leg with associated nonpurulent cellulitis)
Lab / Diagnostic Study Results
01/20/24 12:08
01/20/24 12:08
Total Counted 100 01/20/24 12:08
Abs Neuts (Manual) 21.1 10^3/uL (1.4-6.5) H 01/20/24 12:08
Segmented Neutrophils 89 % (42-75) H 01/20/24 12:08
Band Neutrophils 10 % (0-3) H 01/20/24 12:08
Lymphocytes (Manual) 0 % (20-51) L 01/20/24 12:08
ESR 39 mm/hour (0-20) H 01/20/24 12:08
Lactic Acid 1.8 mmol/L (0.7-2.0) 01/20/24 12:08
C-Reactive Protein > 270.00 mg/L (0.0-10.00) H 01/20/24 12:08
Ur Squamous Epith Cells 3-5 /LPF (Few) 01/20/24 12:08
Microbiology Results
Micro:
01/20/24 12:08 Urine Culture - Pending
Urine
Assessment / Plan
Nonpurulent cellulitis complicating a chronic wound on the L anterior santana
Additionally with unstageable pressure wounds on the bilateral heels
Leukocytosis
H/o colonization with MRSA
unstagable pressure wounds
- would not recommend blood cultures in this patient with a likely diagnosis of moderate cellulitis with a chronic wound due to low risk of bacteremia
- Xray of the heel and distal leg (site of second wounds) without evidence of osteomyelitis (do note that these are limited studies
- note mrsa colonization
- compression as tolerated, elevation as tolerated with multipodus boots
- agree with vancomycin and zosyn for present
- would attempt to establish goals of care; patient would like benefit from a hospice based plan of care
- if further aggressive care is desired then would plan MRI of the L heel (could be delayed to see if renal function improves), CAMILLE, podiatry assessment
Care Review
Plan reviewed with: Physician (Dr Guerrero)
[2024-01-20] MEDS: NSS 1000 IV (16:53)
--- NOTE | 2024-01-20 16:57 | TRANSFER ---
Pt rec'd into IMU 6768, calling out nonsense phrases, but able to answer name and , stated in '[facility]' , confused to date. Pt sleeping between care. Skin assessed-mult lower extrem wounds, unstageable, WOC c/s placed. ID
Dr. Hyatt at bedside. Pt cleaned and repositioned, new CC #25 placed. Oriented to plan of care. bed alarm activated, orders rec'd. NSS at 125/hr infusing to left forearm PIV. Safe environment maintained.
--- NOTE | 2024-01-20 17:06 | PHA.VAN.IN ---
Assessment
- Assessment
Renal Function: Appears elevated from baseline (01/06/24 BASELINE SCR: 1.3)
Concomitant Antimicrobials: ZOSYN
- Previous Dosing Experience
Previous Regimen: NONE
Plan
- Plan
Initial / Loading Dose: 1500MG
Maintenance Regimen: DOSING BY RANDOM LEVELS
Monitoring: RANDOM VANCOMYCIN LEVEL 01/21/24 AM
Pharmacokinetics Vancomycin I
- -
Patient Age: 78
Patient Sex: Male
Vancomycin Day #: 1
Indication: Skin And Soft Tissue ([L] ANTERIOR AGUAYO WOUND)
Requesting Provider: ROSE
Height / Weight:
Height 5 ft 10 in
Actual Weight 64.8 kg
- Vital Signs / Lab Results
Temp Pulse Resp BP Pulse Ox
98.1 F 60 13 95/69 99
01/20/24 16:30 01/20/24 16:30 01/20/24 16:30 01/20/24 16:17 01/20/24 16:52
Lab Results - Hematology
01/20/24
12:08
WBC 21.4 H
Band Neutrophils 10 H
Lab Results - Chemistry
01/20/24
12:08
BUN 67 H
Creatinine 2.3 H
Albumin 2.7 L
01/20/24 01/20/24 01/20/24
12:08 16:08 20:08
Lactic Acid 1.8 Cancelled Cancelled
Lab Results - Urine
01/20/24
12:08
Urine Nitrite (Reflex) Negative
Leukocyte Esterase Rfl Trace A
Urine WBC (Reflex) 6-10
Ur Squamous Epith Cells 3-5
Urine Bacteria (Reflex) Moderate A
--- NOTE | 2024-01-20 19:47 | PTCARENOTE ---
Nursing update provided to and daughter at bedside by this RN, questions answered....they expressed much appreciation for the patient's care. Will discuss further plans with Dr. Guerrero and case management tomorrow. They are reluctant to send
the patient back to [facility]. Call domingo in reach, safe environment maintained.
[2024-01-21] VITALS (16 sets, daily range): BP systolic 108–142; BP diastolic 51–91; PULSE 57–67; O2SAT 98; BMI 21.4
[2024-01-21] MEDS: NSS 1000 IV ×2 (01:07→08:46)
--- NOTE | 2024-01-21 02:05 | PTCARENOTE ---
Pt arousable to verbal stimuli, repeating several phrases inbetween sleeping. Pt reports having to go to the bathroom, repeats phrase over and over. This RN placed BP under pt without relief. CC#[address], draining clear, yellow urine. Absorbant
pads underneath pt in case of incontinence. Pt woke again, repetitively c/o urge to go to the bathroom. This RN placed BP under pt again, pt fell asleep without having BM, BP removed. LLE remains swollen, red. Pt denies pain at this time.
[2024-01-21] MEDS: ZOSYN 50 IV ×4 (02:20→21:07)
[2024-01-21 06:18] LABS: Vancomycin Random 13.7 ug/ml
[2024-01-21 06:32] LABS: Hematocrit 23.7 % (39.0-52.0); Hemoglobin 8.1 g/dL (13.0-18.0); Mean Corp Hgb Conc. 34.2 g/dL (33.0-37.0); Mean Corpuscular Hgb 27.6 pg (27.0-31.0); Mean Corpuscular Volume 80.6 fL (80.0-94.0); Mean Platelet Volume 10.1 fL (7.4-10.4); Platelet Count 154 10^3/uL (130-400); Red Blood Cell Count 2.94 10^6/uL (4.70-6.10); Red Cell Dist. Width 17.7 % (11.5-14.5); White Blood Cell Count 19.9 10^3/uL (4.8-10.8)
[2024-01-21 06:34] LABS: ALT (SGPT) 81 U/L (0-50); AST (SGOT) 65 U/L (17-59); Albumin 2.5 g/dl (3.5-5.0); Alkaline Phosphatase 153 U/L (38-126); Blood Urea Nitrogen 79 mg/dl (9-20); Calcium 8.1 mg/dl (8.4-10.2); Carbon Dioxide 17 mmol/L (22-30); Chloride 111 mmol/L (98-107); Estimated Creatinine Clearance 23 ml/min; Glucose 90 mg/dl (70-99); Magnesium 2.2 mg/dl (1.6-2.3); Potassium 4.3 mmol/L (3.5-5.1); Sodium 138 mmol/L (135-145); Total Bilirubin 0.5 mg/dl (0.2-1.3); Total Protein 4.9 g/dl (6.3-8.2); eGFR 28.18
[2024-01-21 06:43] LABS: Total Iron Binding Capacity 153 ug/dl (261-462)
[2024-01-21 07:05] LABS: TSH Reflex To Free T4 1.08 uIU/ml (0.47-4.68)
--- NOTE | 2024-01-21 07:53 | W.PN.HOSP.TC ---
Addendum entered and electronically signed by Yoly Guerrero MD 01/21/24 15:49:
I saw and evaluated the patient independently. I reviewed the resident�s note and agree with findings and plan as documented by Dr. Luis.
GENERAL: well developed, well nourished, male agitated and moving legs around, speaking loudly
HEENT: NC/AT--off O2
HEART: regular rate and rhythm, +S1, +S2
LUNGS : clear to auscultation bilaterally
ABDOM: soft, nontender, nondistended, + bowel sounds
EXT: no cyanosis, clubbing-- left leg with redness to leg anterior santana with bilateral heel ulcers
NEUROLOGIC: moves all extremities
: condom cath
Sepsis (early) with toxic metabolic encephalopathy--unclear source--leaning towards left lower extremity with cellulitis although urinary tract infection possible with positive urinalysis (moderate bacteria and trace leukocyte esterase)--urine
culture pending, x-ray of the tibia and fibula did not show any foreign bodies--inflammatory markers elevated, trend--continue IV vancomycin with pharmacy to dose and IV Zosyn for now--apprec ID
Acute kidney injury on chronic kidney disease presumed stage III--appears baseline creatinine is approximately 1.3--creatinine on admission is 2.3--appears to have condom cath NOT [facility]greg[place]--continue IV fluids--May need pressor support--consideration
for renal consult
Transaminitis--possibly due to sepsis, improved--patient has no abdominal pain on palpation--no organomegaly that I can appreciate--US without acute findings
Anemia--likely of chronic disease--hemoglobin on admission is 8.5--expect drop with IV fluid administration
Hyponatremia--lower limit of normal 135, patient presents at 134--improved
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
neurology at that time--noted--consult psychiatry--cont Sinemet
History of bipolar 1--psych consult--cont sertraline
History of congestive heart failure unknown type--consideration for echocardiogram to be done this admission
Patient on chronic anticoagulation therapy with Eliquis--for presumed paroxysmal atrial fibrillation although cannot verify this
Essential hypertension--hold BP meds as patient somewhat hypotensive--continue IV fluids--restart meds as able
DVT prophylaxis--hold Eliquis for now--cannot prescribe sequential compression devices with patient's left lower extremity cellulitis and tenderness to palpation
CODE STATUS--appears to be full code
Original Note:
Today's Communication/Plan
-
Continue IVF, IV abx, monitor kidney function
Assessment / Plan
Assessment / Plan
Sepsis secondary to c vs pneumoniaellulitis
Sepsis:
secondary to cellulitis vs pneumonia vs UTI
Leukocytosis (wbc 21 + left shift), reported measured fever 100.4 prior to admission, lactate 1.8, CRP/ESR elevated
Toxic metabolic encephalopathy: [facility]
Speech therapy evaluation: IDD6 (soft, bite sized) recommended. Diet resumed
urine culture no significant growth, x-ray of the tibia and fibula did not show any foreign bodies
-Continue broad spectrum coverage: Zosyn + Vancomycin. Consider adding atypical coverage
-Trend inflammatory markers
-Appreciate ID consult: blood cx not recommended
Acute kidney injury on CKD (unclear stage, likely stage III):
Baseline creatinine is approximately 1.3
Creatinine on admission is 2.3, unchanged today. Condom catheter in place. Will add bladder scan protocol
Will consider renal consult if creatinine does not improve with IV fluids
Transaminitis
possibly due to sepsis.
No abdominal complaints, negative abd physical exam
-improving. Monitor
Anemia
Likely of chronic disease--hemoglobin on admission is 8.5--expect drop with IV fluid administration
Folate normal, B12 mildly elevated
-check iron studies
Hyponatremia
Mild. 135 on presentation. Resolved with IVF
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 seen by neurology at that time
Uncertain about how established these diagnoses are. family notes that behavioral change may have been due to medication. Family notes significant improvement in agitation/behavior disturbance after stopping lithium.
-Currently on Sinemet. Continue
History of bipolar 1 and Obsessive compulsive disorder
Perserveration noted on physical exam. Uncertain whehter secondary to dementia or manifestation of OCD
Remote diagnosis of Bipolar disorder with long history of lithium use. Discontinued [place] some months ago. Patient's family noted improvement in behavior after [place] stopped
-Psych consult
-Patient on sertraline. Continue
History of congestive heart failure unknown type
Lung exam normal, LE edema unilateral (left).
-Will consider echo
Patient on chronic anticoagulation therapy with Eliquis--for presumed paroxysmal atrial fibrillation although cannot verify this
-Concern about continuation given history of falls
Essential hypertension--hold BP meds as patient somewhat hypotensive--continue IV fluids
DVT prophylaxis--hold Eliquis for now--cannot prescribe sequential compression devices with patient's left lower extremity cellulitis and tenderness to palpation
CODE STATUS--appears to be full code
-
Anticipated Discharge: > 48 hours
Subjective/Interval History
-
Date of Service: January 21, 2024
Perserveration on the subject of how serious the condition of his left leg infection could be. Otherwise answers questions.
Objective Data
-
Labs:
Laboratory Results
01/21/24 01/21/24
05:33 05:34
WBC 19.9 H
Hgb 8.1 L
Hct 23.7 L
Plt Count 154
Sodium 138
Potassium 4.3
Chloride 111 H
Carbon Dioxide 17 L
BUN 79 H
Creatinine 2.3 H
Glucose 90
Calcium 8.1 L
Total Bilirubin 0.5
AST 65 H
ALT 81 H
Alkaline Phosphatase 153 H
Vital Signs:
Vital Signs
Temp Pulse Resp BP Pulse Ox
97.7 F 54 21 139/67 95
01/21/24 04:26 01/21/24 06:00 01/21/24 06:00 01/21/24 06:00 01/21/24 06:26
I&O
01/20/24 01/21/24 01/22/24
06:59 06:59 06:59
Intake Total 1725 172
Balance 1725 172
Review of Systems
-
Unable to obtain full review of systems at this time due to: Dementia and Other (hearing impairment)
History Source: Patient
Cardiac: Denies Chest Pain
Abdomen/GI: Denies Abdominal Pain
Musculoskeletal: Reports Other (L leg pain)
Neuro: Denies Headache
Physical Exam
-
General: Appears Chronically Ill
Respiratory: Clear to Auscultation and Non Labored Respirations; Negative Wheezes, Rales, Rhonchi or Crackles
Cardiac: S1/S2, Tachycardic and Other (Diminished heart sounds)
GI: Soft, Nontender, Nondistended and Normal Bowel Sounds
Musculoskeletal: Other (erythema and swelling in left leg. bilateral heel decubitous ulcers )
Skin: Warm and Dry
Neuro: Awake, Alert and Oriented
Psych: Anxious and Other (perserveration)
[2024-01-21 08:14] LABS: Folate 13.1 ng/ml (2.76-20); Vitamin B12 938 pg/ml (239-931)
--- NOTE | 2024-01-21 08:40 | WOUNDNOTE ---
[facility]
--- NOTE | 2024-01-21 08:40 | WOUNDNOTE ---
R 5TH TOE
--- NOTE | 2024-01-21 08:40 | WOUNDNOTE ---
R 5TH TOE
[2024-01-21] MEDS: PROTONIX IV 40 MG IV (08:41)
[2024-01-21] MEDS: NSS (PRESERVATIVE FREE) 10 ML IV (08:41)
--- NOTE | 2024-01-21 08:50 | WOUNDNOTE ---
[facility] RN note: Patient admitted with cellulitis. Patient admitted from SNF. Patient is .
See H&P for complete history.
PMH: dementia, bipolar, agitated, chronic pressure injuries/wounds, HTN, progressive super nuclear palsy, CHF, CKD, on Eliquis.
Wound Location and type/assessment: Patient admitted with: L anterior calf full thickness suspect r/t edema to subcutaneous layer or deeper brown moist eschar attached to skin edges with scant serous drainage. L anterior calf with diffuse red
ecchymotic appearing skin. Two R medial heel pressure injuries suspect shallow one stage 3 and deeper one stage 3 or 4 suspect to muscle in deepest section. L medial heel unstageable suspect stage 4 pressure injury with loosening black eschar with
foul odor. +2-3 LLE edema. Trace RLE edema. Pedal pulses heard via portable Doppler. Sacral stage 1 pressure injury. Patient frequently bends his knees and rubs heels against the bed in the process. See Dr. Molina's note regarding wounds. Sorin
wrap and Multipodis splint are on order.
Appetite: currently NPO for an abdominal ultrasound.
Pressure redistribution devices in place: Centrella Max air. Air chair cushions.
Plan: Silicone border foam applied to sacrum. Foam dressing applied to heels and silicone foam applied to LLE ulcer. Bilateral knee high Sorin wrap applied. Size XL multipodis splints applied Le's (patient's foot length measured 10 inches).
[facility]'s resident Shae was in who assessed leg/heel wounds. Discussed case with Shae who approved local wound care. Defer to hospitalist if arterial Doppler indicated. Discussed with KAZ Brizuela
Care plan to be updated and will follow as needed.
Note to case management of equipment requested for discharge: Air mattress at SNF if not already in place.
Recommend follow up at wound care center upon discharge.
--- NOTE | 2024-01-21 08:50 | WOUNDNOTE ---
[facility] RN note: Patient admitted with cellulitis. Patient admitted from SNF. Patient is .
See H&P for complete history.
PMH: dementia, bipolar, agitated, chronic pressure injuries/wounds, HTN, progressive super nuclear palsy, CHF, CKD, on Eliquis.
Wound Location and type/assessment: Patient admitted with: L anterior calf full thickness to subcutaneous layer or deeper brown moist eschar attached to skin edges with scant serous drainage. L anterior calf with diffuse red ecchymotic appearing
skin. R medial heel stage 3 or 4 pressure injury suspect to muscle. L medial heel unstageable suspect stage 4 pressure injury with loosening black eschar with foul odor. +2-3 LLE edema. Trace RLE edema. Pedal pulses heard via portable Doppler.
Suspect patient has some PAD. Sacral stage 1 pressure injury. Patient frequently bends his knees and rubs heels against the bed in the process. See Dr. Molina's note regarding wounds. Sorin wrap and Multipodis splint are on order.
Appetite: currently NPO for an abdominal ultrasound.
Pressure redistribution devices in place: Centrella Max air. Air chair cushions.
Plan: Silicone border foam applied to sacrum. Foam dressing applied to heels and silicone foam applied to LLE ulcer. Bilateral knee high Sorin wrap applied. Size XL multipodis splints applied Le's (patient's foot length measured 10 inches).
[facility] resident Shae was in who assessed leg/heel wounds. Discussed case with Shae who approved local wound care. Defer to hospitalist if arterial Doppler indicated. Discussed with KAZ Brizuela
Care plan to be updated and will follow as needed.
Note to case management of equipment requested for discharge: Air mattress at SNF if not already in place.
Recommend follow up at wound care center upon discharge.
--- NOTE | 2024-01-21 09:33 | PHA.VAN.FU ---
Vancomycin Assessment / Plan
- Assessment
Renal Function: Stable (~2,3)
WBC's are: Stable
In the past 24 hrs, patient has been: Afebrile
Concomitant Antimicrobials: piperacillin/tazo
- Assessment - Therapeutic Drug Monitoring
Random Level: 13.7 ~ 15 hours after 1500 mg loading dose
- Dosing Plan
Continue: dose by random level due to elevated SCr
Dosing by Level: Re-dose today (1000 mg x 1 today ( 15 mg/kg))
- Monitoring Plan
Random Level: repeat random level am 01/21
- Follow Up
Pharmacy will continue to follow.
Vancomycin Follow UP
- -
Patient Age: 78
Patient Sex: Male
Vancomycin Day #: 2
Indication: Skin And Soft Tissue ([L] ANTERIOR AGUAOY WOUND)
Requesting Provider: MAX Molina
Height / Weight:
Height 5 ft 10 in
Actual Weight 63.3 kg
Pertinent Past Medical History: outpt treated w/ doxy and cipro; h/o colonization w/ MRSA
- Vital Signs / Lab Results
Temp Pulse Resp BP Pulse Ox
97.7 F 54 21 139/67 95
01/21/24 07:20 01/21/24 06:00 01/21/24 06:00 01/21/24 06:00 01/21/24 06:26
Lab Results - Hematology
01/20/24 01/21/24
12:08 05:34
WBC 21.4 H 19.9 H
Band Neutrophils 10 H
Lab Results - Chemistry
01/20/24 01/21/24
12:08 05:33
BUN 67 H 79 H
Creatinine 2.3 H 2.3 H
Estimated Creat Clear 23
Albumin 2.7 L 2.5 L
01/20/24 01/20/24 01/20/24
12:08 16:08 20:08
Lactic Acid 1.8 Cancelled Cancelled
Lab Results - Urine
01/20/24
12:08
Urine Nitrite (Reflex) Negative
Leukocyte Esterase Rfl Trace A
Ur Squamous Epith Cells 3-5
Therapeutic Drug Monitoring
Random Vancomycin 13.7 ug/ml 01/21/24 05:33
--- NOTE | 2024-01-21 09:41 | W.PN.ID1 ---
Date of Service
Date of Service: January 21, 2024
Today's Communication
- agree with vancomycin and zosyn for present
- patient alert today, responding to and asking appropriate questions however extremely hard of hearing
- would attempt to establish goals of care; patient would like benefit from a hospice based plan of care
- if further aggressive care is desired then would plan MRI of the L heel (could be delayed a few days to see if renal function improves), CAMILLE and possible vascular assessment, podiatry assessment/possible debridement and aggressive offloading and
frequent turns if possible. Having patient up in chair/wheelchair during the day at a minimum an important step to preventing relapse/remission.
Assessment / Plan
Nonpurulent cellulitis complicating a chronic wound on the L anterior santana
Additionally with unstageable pressure wounds on the L heel, R heel stage 1
Leukocytosis
H/o colonization with MRSA
unstagable pressure wounds
- compression as tolerated, elevation as tolerated with multipodus boots
- agree with vancomycin and zosyn for present
- patient alert today, responding to and asking appropriate questions however extremely hard of hearing
- would attempt to establish goals of care; patient would like benefit from a hospice based plan of care
- if further aggressive care is desired then would plan MRI of the L heel (could be delayed a few days to see if renal function improves), CAMILLE and possible vascular assessment, podiatry assessment/possible debridement and aggressive offloading and
frequent turns if possible. Having patient up in chair/wheelchair during the day at a minimum an important step to preventing relapse/remission.
Chief Complaint
-: Other (chronic wounds with cellulitis)
Subjective / Review of Systems
remains afebrile
bp stable
slight improvement in leukcytosis
hgb stable
cr unchanged
improved ast, alt slight increase, minimally elevated alk phos
Abd US done but not yet read by radiology
urine culture in progress
alert today - very hard of hearing
Vital Signs / Physical Exam
Vital Signs
Vital Signs
Temp Pulse Resp BP Pulse Ox
97.7 F 54 21 139/67 95
01/21/24 07:20 01/21/24 06:00 01/21/24 06:00 01/21/24 06:00 01/21/24 06:26
Physical Exam
Constitutional: Chronically Ill
Cardiovascular: Regular Rate and S1/S2; Negative Murmur or Rub
Pulmonary: Clear and Symmetric; Negative Wheezes or Rales
Gastrointestinal: Soft, Non Tender, Non Distended and Normal Bowel Sounds
Skin: Warm and Dry; Negative Rash or Jaundice
Wound: Other (L heel - unstageable ulcer with eschar - no syd[place] probe to bone of the soft tissue adajcent to the eschar - of course unable to assess below the eschar; R heel stage 1 deep tissue injury. L leg with a chronic wound and some
improvement of nonpurulent erythema)
Neurological: Awake
Objective Data
Lab Data
Lab Results
01/21/24 05:34
01/21/24 05:33
ESR 39 mm/hour (0-20) H 01/20/24 12:08
Estimated Creat Clear 23 ml/min 01/21/24 05:33
Lactic Acid Cancelled 01/20/24 20:08
Total Bilirubin 0.5 mg/dl (0.2-1.3) 01/21/24 05:33
AST 65 U/L (17-59) H 01/21/24 05:33
ALT 81 U/L (0-50) H 01/21/24 05:33
Alkaline Phosphatase 153 U/L (38-126) H 01/21/24 05:33
C-Reactive Protein > 270.00 mg/L (0.0-10.00) H 01/20/24 12:08
Most recent labs reviewed.
Micro Results:
01/20/24 12:08 Urine Culture - Pending
Urine
--- NOTE | 2024-01-21 12:48 | PTOTSP ---
SPEECH THERAPY SWALLOW EVALUATION:
Patient exhibits clinical signs of oropharyngeal dysphagia, likely chronic related to dementia and acutely exacerbated by TME/sepsis. Patient remains at risk for aspiration and related complications given dementia, confusion, and impulsivity.
Recommend IDDSI Level 6 Soft and bite size diet with thin liquids with strict aspiration precautions in place including: Upright positioning; 1:1 assist/supervision including pinching straw/removing cup following small single sip of thin liquid to
limit size/rate of intake; Oral care 3x/day to reduce risk for nosocomial infection; Monitor CXR and labs; Small sips/bites; Slow rate of intake; Only feed when awake/alert. D/c oral diet if any signs of aspiration or a decline in mental or
respiratory status. Medications crushed in puree. Could consider VSE if concern for aspiration. Speech therapy to follow, assess diet tolerance and modify as appropriate, determine indication for VSE as appropriate, provide continued diagnostic
swallow therapy as appropriate. Discussed recommendations with Dr. Guerrero, RN, and patient.
RECOMMEND:
1) IDDSI Level 6 Soft and bite size diet with thin liquids
2) Strict aspiration precautions in place including: Upright positioning; 1:1 assist/supervision including pinching straw/removing cup following small single sip of thin liquid to limit size/rate of intake; Oral care 3x/day to reduce risk for
nosocomial infection; Monitor CXR and labs; Small sips/bites; Slow rate of intake; Only feed when awake/alert. D/c oral diet if any signs of aspiration or a decline in mental or respiratory status
3) Medications crushed in puree
4) Could consider VSE if concern for aspiration
5) Speech therapy to follow
[2024-01-21] MEDS: VANCOCIN 200 IV (13:08)
--- NOTE | 2024-01-21 14:18 | CM ---
Patient seen at bedside with physician. Patient family; and daughter here to see patient. Family meeting held to discuss recent medical issues and stay at SNF; [facility] for last several months. Patient planning to go home with
tomorrow and has arranged for [facility]ev[facility] services to support patient and her at the home. Patient also has new chair lift installed for patient. Patient would need VN services/ PT/OT and per they are looking into who they would want to have. Patient
calling out and repeating concern about having to go tot he bathroom. Patient family aware of the plan and want to go home with patient when medically appropriate or they are considering return to [facility] as private pay having exhausted
medicare benefit. Patient also considering options at other facilities but is aware that any SNF would be private pay due to the exhaustion of insurance benefit. Patient family very supportive and questioning of the dementia diagnosis that is
on the paperwork. CM will continue to follow for discharge planning needs.
Plan; home with Jev[facility]/VN to be set up vs SNF
--- NOTE | 2024-01-21 14:54 | PTCARENOTE ---
Assumed care of pt this am after morning report and walking rounds. He is alert and yells out almost constantly, He is fixated on bowels and is provided with bedpan frequently. He does have a few small loose brown BMs this am. He has condom cath on
for cloudy yellow urine. He yells out that he needs to Pee and frequenlty reoriented without success. SB on tele, left lower extremity with greater swelling than right/ Left is bright red and WOC RN assessed wounds and orders obtained.
--- NOTE | 2024-01-21 15:39 | WOUNDNOTE ---
WOC RN note: Alex Villanueva re: recommend Hospital bed with air mattress for patient; he has a stage 1 sacral pressure injury and full thickness heel wounds and does not turn self in bed.
--- NOTE | 2024-01-21 15:44 | CON.MD ---
Consultation - Medical
-
patient seen chart reviewed. discussed w nursing and met w family who included patient and daughter. the patient is known to me from prior assessment in december of 2023 at that time he was admitted for change in mental status. he has hx of
bipolar disorder and had taken lithium and effexor in the past which were stopped by a safety manager who saw him in the winter who felt he had become toxic on lithium. he wound up being hosp at [facility] for almost two months. it was suggested
that he had lewy body or fronto temporal dementia at that time and he was discharged on thorazine and ativan prn anxiety to [facility] where he remains at this point. family tells me that he improved cognitively when the thorazine was stopped
but from my read of the chart upon dc from in december he was not very much improved cognitively. he exhibited significant rigidity during that admission. he was seen here at in the ed onn 01/05. family concerned re uti. he was not found to have
uti. he returned to [facility] at that point. he was restless with ? auditory hallucinations around hs. he fell and he was brought back to on 01/19 for change in mental status. he was found to have cellulitis; he is serptic w wbc of 21K,
hypoxia noted at admission, liver enzymes elevated, renal issues. re psych status feels his mental status has been quite good but daughter says he is confused often and inconsistently oriented. he has become more concerned with obsessions and
they refer to him as having 'ocd sx'. what they described is repetitive questions as to whether various things eg shaving cream,medications, food will harm him. the care home physican started him on zoloft 25 mg. the patient today is unable to
give any history. he is very confused. told me he was at [facility], it is '1999' then said the season currrently is winter. family and this scientific technical writer noted his speech was slurred and rather thick and loud (family says they are
worried he has hearing loss. he did see a neurologist last week dr ayoub. he had seen dr ayoub around the time he [facility] and he was found to be very cognitively impaired. family said dr ayoub felt he had 'improved' but from what i
can gather he remained quite impaired.
past psych hx family hx social hx please see prior evaluation dated 12/08/2023
medical hx reasons for admit as above. progressive supernuclear palsy noted in record. hx thn pressure sores cad, anemia tme chf hld . b12 folate ok ua ok elev transaminases elev wbc cr 2.3 bun 79 a number of findings on abd
ultrasound qtc 435 bp 119/56 pulse 50 tsh nl
mse patient lying in bed inattentive with loud questioning responds but unable to engage in meaningful conversation and provide any hx. speech is loud slurred and pressured. disorganized thought process affect blunted mood is cooperative at
present insight judgment lacking oriented to person
dx dementia ? lewy body
recommendations it is notable that patient is presenting at this point with what family sees as ocd type sx. not clear to me what these represent but we all agreed they were very perseverative in nature and no amount of reassurance helped quell
patient fears. development of ocd sx in older age group eg past 50 could herald eventual lewy body dementia and ssri's have been used in this population. have ordered zoloft 25 and told family it takes some time for ssri's to be effective and
dosage may need increase in the next several weeks. i do not see the dx of bipolar at this point as something we need to rx. would avoid antipsychotics which could contribute to eps and worsen sx such as rigidity gait issues etc. nursing says
overall patient is cooperative and not a management problem. if something is needed for agitation seroquel would have less impact in development of eps. would try to avoid bzp. psych will sign off please let us know if you need us to return.
--- NOTE | 2024-01-21 15:50 | PTCARENOTE ---
Addendum entered by Mague Bowen RN 01/21/24 15:54:
Straight cath easily with 1 attempt, immediate return of clear yellow urine. Bladder scan was 999 and cath'd for 1200. Pt cooperative during procedure reports feeling better as bladder emptied. and daughter at bedside and st. cath and bladder
distention protocol explained and reviewed with family. was apprehensive initially about pt being st cathed but after review of procedure and plan of care with goal to provide comfort, she was in agreement.
Original Note:
Bladder distention noted, pt continues to c/o feeling like he needs to 'have a bm'm
--- NOTE | 2024-01-21 16:24 | PTCARENOTE ---
Patient accompanied by this RN to US for bilateral lower extremity dopplers. Pt uncooperative, as he is constantly moving his legs and rubbing feet on bed. He has had his roman wraps on bilateral and Multipodus boots on also throughout the day. This
RN assist US forest technician in obtaining US pictures which proved challenging withhis constant leg motion.
[2024-01-21] MEDS: NSS IV (16:54)
[2024-01-21] MEDS: SINEMET 25-100 1 TABLET PO ×2 (17:14→21:59)
[2024-01-21] MEDS: LIORESAL 2.5 MG PO (21:07)
[2024-01-21] MEDS: ELIQUIS 5 MG PO (21:08)
[2024-01-21] MEDS: MELATONIN 3 MG PO (22:00)
[2024-01-22] MEDS: ZOSYN 50 IV ×4 (01:45→20:40)
[2024-01-22] MEDS: NSS 1000 IV ×3 (03:04→20:40)
[2024-01-22 07:25] VITALS: BP 128/63
[2024-01-22 07:34] LABS: Hematocrit 23.2 % (39.0-52.0); Hemoglobin 7.7 g/dL (13.0-18.0); Mean Corp Hgb Conc. 33.2 g/dL (33.0-37.0); Mean Corpuscular Hgb 27.1 pg (27.0-31.0); Mean Corpuscular Volume 81.7 fL (80.0-94.0); Mean Platelet Volume 10.9 fL (7.4-10.4); Platelet Count 146 10^3/uL (130-400); Red Blood Cell Count 2.84 10^6/uL (4.70-6.10); Red Cell Dist. Width 17.7 % (11.5-14.5)
[2024-01-22 07:43] LABS: Vancomycin Random 17.6 ug/ml
--- NOTE | 2024-01-22 07:52 | W.PN.HOSP.TC ---
Addendum entered and electronically signed by Yoly Guerrero MD 01/22/24 14:58:
I saw and evaluated the patient independently. I reviewed the resident�s note and agree with findings and plan as documented by Dr. Luis.
GENERAL: well developed, well nourished, male agitated and moving legs around, speaking loudly
HEENT: NC/AT--off O2
HEART: regular rate and rhythm, +S1, +S2
LUNGS : clear to auscultation bilaterally
ABDOM: soft, nontender, nondistended, + bowel sounds
EXT: no cyanosis, clubbing-- left leg with redness to leg anterior santana with bilateral heel ulcers
NEUROLOGIC: moves all extremities
Sepsis (early) with toxic metabolic encephalopathy--unclear source--leaning towards left lower extremity with cellulitis --no UTI as culture no growth-- x-ray of the tibia and fibula did not show any foreign bodies--inflammatory markers elevated,
trend--continue IV vancomycin with pharmacy to dose and IV Zosyn for now--apprec ID
Acute kidney injury on chronic kidney disease presumed stage III--appears baseline creatinine is approximately 1.3--creatinine on admission is 2.3, remains 2.3 despite IVF--continue IV fluids--May need pressor support-- renal consult
Transaminitis--possibly due to sepsis, improved--patient has no abdominal pain on palpation--no organomegaly that I can appreciate--US without acute findings
Anemia--likely of chronic disease--hemoglobin on admission is 8.5--expect drop with IV fluid administration
Hyponatremia--lower limit of normal 135, patient presents at 134--improved
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
psych, these diagnoses are likely correct--cont Sinemet
History of bipolar 1--psych consult--cont sertraline
History of congestive heart failure unknown type--consideration for echocardiogram to be done this admission
Patient on chronic anticoagulation therapy with Eliquis--for presumed paroxysmal atrial fibrillation although cannot verify this
Essential hypertension--hold BP meds as patient somewhat hypotensive--continue IV fluids--restart meds as able
DVT prophylaxis--hold Eliquis for now--cannot prescribe sequential compression devices with patient's left lower extremity cellulitis and tenderness to palpation
CODE STATUS--appears to be full code
Original Note:
Today's Communication/Plan
-
Continue IV antibiotics, IV fluids, wound care
Assessment / Plan
Assessment / Plan
Sepsis:
secondary to cellulitis vs pneumonia vs UTI
Leukocytosis (wbc 21 + left shift), reported measured fever 100.4 prior to admission, lactate 1.8, CRP/ESR elevated
Non-anion gap metabolic acidosis
Toxic metabolic encephalopathy: reported to be altered from baseline at [facility]
Speech therapy evaluation: IDD6 (soft, bite sized) recommended. Diet resumed
urine culture no significant growth
x-ray of the tibia and fibula did not show any foreign bodies
CXR: There is mild bibasilar parenchymal opacity, and left perihilar interstitial prominence, suspicious for pneumonia. No radiographically demonstrable pleural effusion or pneumothorax
-Continue broad spectrum coverage: Zosyn + Vancomycin.
-Improving leukocytosis, afebrile since admission,
-Appreciate ID consult: blood cx not recommended
Acute kidney injury on CKD (unclear stage, likely stage III):
Baseline creatinine is approximately 1.3
Creatinine on admission is 2.3, unchanged today. Bladder scan protocol
Will consider renal consult if creatinine does not improve with IV fluids
Transaminitis
possibly due to sepsis.
No abdominal complaints, negative abd physical exam
-Resolved
Anemia
Likely of chronic disease--hemoglobin on admission is 8.5--drop to 7.7 with IV fluid administration
Folate normal, B12 mildly elevated. Iron studies indicative of anemia of chronic disease
-Continue to monitor. Will transfuse if necessary
Hyponatremia
Mild. 134 on presentation. Resolved with IVF
-Follow BMP
Wounds:
Stage I sacral pressure injury, bilateral full-thickness heel wounds
-Wound care
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 seen by neurology at that time
Family disputes these diagnoses, suggests that behavioral change is secondary to medication effect
Speech therapy evaluation: IDD6 (soft, bite sized) recommended. Diet resumed
-Currently on Sinemet. Continue
-Appreciate psych input. -Avoid first generation antipsychotics for risk of extrapyramidal symptoms. Avoid benzodiazepines. Will consider Seroquel for behavioral disturbance if necessary
History of bipolar 1, Obsessive compulsive disorder
Perserveration noted on physical exam, anxious, pressured speech
Remote diagnosis of Bipolar disorder with long history of lithium use. Discontinued [place] some months ago. Patient's family noted improvement in behavior after [place] stopped
-Appreciate psych input: Preserverative symptoms may be signs of Lewy body dementia. Patient on sertraline. Continue
History of congestive heart failure unknown type
Lung exam normal, LE edema unilateral (left).
-Will consider echo on this visit
Patient on chronic anticoagulation therapy with Eliquis--for presumed paroxysmal atrial fibrillation although cannot verify this
Essential hypertension--hold BP meds as patient somewhat hypotensive--continue IV fluids
DVT prophylaxis: Eliquis
CODE STATUS--appears to be full code
-
Anticipated Discharge: > 48 hours
Subjective/Interval History
-
Date of Service: January 22, 2024
Objective Data
-
Labs:
Laboratory Results
01/22/24
06:32
WBC 13.0 H
Hgb 7.7 L
Hct 23.2 L
Plt Count 146
Sodium Pending
Potassium Pending
Chloride Pending
Carbon Dioxide Pending
BUN Pending
Creatinine Pending
Glucose Pending
Calcium Pending
Total Bilirubin Pending
AST Pending
ALT Pending
Alkaline Phosphatase Pending
Vital Signs:
Vital Signs
Temp Pulse Resp BP Pulse Ox
99.4 F 55 19 111/51 95
01/21/24 23:11 01/21/24 23:11 01/21/24 23:11 01/21/24 23:11 01/21/24 23:11
I&O
01/21/24 01/22/24 01/23/24
06:59 06:59 06:59
Intake Total 1725 / 1725 3710 / 3710
Output Total 2540 / 2540
Balance 1725 / 1725 1170 / 1170
Review of Systems
-
Unable to obtain full review of systems at this time due to: Dementia
History Source: Patient
Respiratory: Denies Trouble Breathing
Cardiac: Denies Chest Pain
Abdomen/GI: Denies Abdominal Pain
Genitourinary: Reports Difficulty Voiding
Physical Exam
-
Respiratory: Non Labored Respirations and Decreased Breath Sounds (Left LL); Negative Wheezes, Rales, Rhonchi or Crackles
Cardiac: Regular Rhythm and S1/S2; Negative Murmur, Rub or Calf Tenderness
GI: Soft, Nontender, Nondistended and Normal Bowel Sounds
Musculoskeletal: Other (Erythema mild edema of left leg)
Skin: Warm and Dry
Neuro: Awake and Alert
Psych: Agitated
[2024-01-22 07:58] LABS: ALT (SGPT) 25 U/L (0-50); AST (SGOT) 31 U/L (17-59); Albumin 2.2 g/dl (3.5-5.0); Alkaline Phosphatase 108 U/L (38-126); Blood Urea Nitrogen 78 mg/dl (9-20); Calcium 7.9 mg/dl (8.4-10.2); Carbon Dioxide 20 mmol/L (22-30); Chloride 114 mmol/L (98-107); Estimated Creatinine Clearance 25 ml/min; Glucose 99 mg/dl (70-99); Potassium 3.8 mmol/L (3.5-5.1); Sodium 140 mmol/L (135-145); Total Bilirubin 0.4 mg/dl (0.2-1.3); Total Protein 4.5 g/dl (6.3-8.2); eGFR 28.18
[2024-01-22] MEDS: DAKIN'S SOLUTION 0.125% 1/4 STRENGTH 473 ML TOPICAL (09:38)
[2024-01-22] MEDS: NSS (PRESERVATIVE FREE) 10 ML IV (09:39)
[2024-01-22] MEDS: SINEMET 25-100 1 TABLET PO ×3 (09:39→21:49)
[2024-01-22] MEDS: PROTONIX IV 40 MG IV (09:39)
[2024-01-22] MEDS: LIORESAL 2.5 MG PO ×2 (09:39→20:35)
[2024-01-22] MEDS: THERAGRAN 1 TABLET PO (09:39)
[2024-01-22] MEDS: ZOLOFT 25 MG PO (09:39)
[2024-01-22] MEDS: VITAMIN C 500 MG PO (09:40)
[2024-01-22] MEDS: ELIQUIS 5 MG PO ×2 (09:40→20:35)
[2024-01-22] MEDS: PEPCID 20 MG PO (09:40)
[2024-01-22] MEDS: VITAMIN D3 (cholecalciferol) 125 MCG PO (09:40)
--- NOTE | 2024-01-22 10:08 | PHA.VAN.FU ---
Vancomycin Assessment / Plan
- Assessment
Renal Function: Stable
WBC's are: Trending Up
In the past 24 hrs, patient has been: Afebrile
Concomitant Antimicrobials: Piperacillin-tazobactam
- Assessment - Therapeutic Drug Monitoring
Random Level: R = 17.6 ~ 17.5hrs post Vanc 1000mg (15mg/kg)
- Dosing Plan
Continue: Dose by level
Dosing by Level: Hold off on dosing today
- Monitoring Plan
Random Level: 01/22 with AM labs
- Follow Up
Pharmacy will continue to follow.
Vancomycin Follow UP
- -
Patient Age: 78
Patient Sex: Male
Vancomycin Day #: 3
Indication: Skin And Soft Tissue ([L] ANTERIOR AGUAYO WOUND)
Requesting Provider: MAX Molina
Height / Weight:
Height 5 ft 10 in
Actual Weight 67.67 kg
Pertinent Past Medical History: outpt treated w/ doxy and cipro; h/o colonization w/ MRSA
- Vital Signs / Lab Results
Temp Pulse Resp BP Pulse Ox
97.4 F 59 16 128/63 96
01/22/24 07:25 01/22/24 07:25 01/22/24 07:25 01/22/24 07:25 01/22/24 07:25
Lab Results - Hematology
01/20/24 01/21/24 01/22/24
12:08 05:34 06:32
WBC 21.4 H 19.9 H 13.0 H
Band Neutrophils 10 H
Lab Results - Chemistry
01/20/24 01/21/24 01/22/24
12:08 05:33 06:32
BUN 67 H 79 H 78 H
Creatinine 2.3 H 2.3 H 2.3 H
Estimated Creat Clear 23 25
Albumin 2.7 L 2.5 L 2.2 L
01/20/24 01/20/24 01/20/24
12:08 16:08 20:08
Lactic Acid 1.8 Cancelled Cancelled
Microbiology Results
01/20/24 12:08 Urine Culture - Final
Urine No Significant Growth
Therapeutic Drug Monitoring
Random Vancomycin 17.6 ug/ml 01/22/24 06:32
[2024-01-22] MEDS: IODOSORB 1 APPLIC TOPICAL (12:27)
--- NOTE | 2024-01-22 12:57 | W.CON.NEPH ---
Consultation
-
Date/Time Consultation Requested: 01/22/2024 11AM
Date/Time Consultation Performed: 01/22/2024 12:58PM
Requesting Provider: Yoly Guerrero
Performing Provider: Sue Pat
Reason for Consultation: JACINTA
Medical History
-
Chief Complaint: JACINTA
History of Present Illness:
Mr. Rizzo is a 78YOM with PMH of dementia, bipolar disorder, RUBY, HTN, CKD who presents to the hospital with altered mental status. He is unable to participate in the interview due to confusion. Workup did note that he had an elevated white
count -- unclear of the source for sepsis. He was treated with IV vanc/zosyn and then admitted for further management.
Patient's and daughter are at bedside. They say that since July, he has been in and out of different facilitis. Jul -- October he was in [facility] who took him off and then placed him back on lithium. He was then transferred to [facility] for PT. Fell in December and also had a stay at during this time. His wounds are the worst they have everseen them. does endorse that he was not eating/drinking well since 2 weeks. Cr was 1-1.2 on last admission, elevated to 2.3 now.
Past Medical History
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
Bipolar Disorder
Progressive super nuclear palsy
Iron Deficiency Anemia
Essential hypertension
CHF - Unknown Type
Pressure injuries with unstageable heel ulcers in the past
Chronic kidney disease stage not listed
Past Medical History: Other
Past Surgical History: Other
Social History
unable to obtain due to confusion
Living: [facility]
Family History
Family History: Not Pertinent
Allergies / Home Medications
Allergy/AdvReac Type Severity Reaction Status Date / Time
No Known Allergies Allergy Verified 01/06/24 06:13
�Medication �Instructions �Recorded �Confirmed �Type
acetaminophen 325 mg tablet 650 mg PO Q4H PRN mild 12/07/23 01/20/24 History
pain/temp>101
apixaban 5 mg tablet 5 mg PO Q12 Blood Clot 12/07/23 01/20/24 History
Prevention/Tx
ascorbic acid (vitamin C) 500 mg 500 mg PO DAILY Supplement 12/07/23 01/20/24 History
tablet (Vitamin C)
atenolol 50 mg tablet 50 mg PO DAILY Blood Pressure 12/07/23 01/20/24 History
bisacodyl 10 mg rectal suppository 10 mg WV DAILY PRN if no bm in 12/07/23 01/20/24 History
(Dulcolax (bisacodyl)) 24hrs after MOM
cholecalciferol (vitamin D3) 125 125 mcg PO DAILY Supplement 12/07/23 01/20/24 History
mcg (5,000 unit) tablet
famotidine 40 mg tablet 40 mg PO DAILY Gastrointestinal 12/07/23 01/20/24 History
Issue
loperamide 2 mg capsule 2 mg PO Q4HPRN PRN diarrhea 12/07/23 01/20/24 History
magnesium hydroxide 400 mg/5 mL 30 ml PO DAILY PRN if no bm after 12/07/23 01/20/24 History
oral suspension (Milk of Magnesia) 3 days
multivitamin,tx-minerals 1 tab PO DAILY Supplement 12/07/23 01/20/24 History
sodium phosphates 19 gram-7 118 ml WV DAILY PRN if no bm in 12/07/23 01/20/24 History
gram/118 mL enema (Fleet Enema) 24hrs after suppository
carbidopa 25 mg-levodopa 100 mg 1 tab PO TID #1 tab 12/13/23 01/20/24 Rx
tablet
Calcium Alginate Wound Care 1 applic topical DAILY LLE wound 01/20/24 01/20/24 History
baclofen 5 mg tablet 2.5 mg PO BID Muscle Spasms 01/20/24 01/20/24 History
ciprofloxacin HCl 250 mg tablet 250 mg PO BID UTI 01/20/24 01/20/24 History
(Cipro)
doxycycline hyclate 100 mg tablet 100 mg PO BID LLE cellulitis 01/20/24 01/20/24 History
melatonin 3 mg tablet 3 mg PO HS insomnia 01/20/24 01/20/24 History
povidone-iodine 10 % topical 1 applic topical QIDPRN PRN 01/20/24 01/20/24 History
solution (Betadine) Bilateral heal wound soilage
sertraline 25 mg tablet 25 mg PO DAILY 01/20/24 01/20/24 History
obsessive-compulsive diso
Physical Exam
Vital Signs
Vital Signs
Temp Pulse Resp BP Pulse Ox
97.4 F 59 16 128/63 96
01/22/24 07:25 01/22/24 07:25 01/22/24 07:25 01/22/24 07:25 01/22/24 07:25
Lab Results
WBC 13.0 10^3/uL (4.8-10.8) H 01/22/24 06:32
RBC 2.84 10^6/uL (4.70-6.10) L 01/22/24 06:32
Hgb 7.7 g/dL (13.0-18.0) L 01/22/24 06:32
Hct 23.2 % (39.0-52.0) L 01/22/24 06:32
Plt Count 146 10^3/uL (130-400) 01/22/24 06:32
Sodium 140 mmol/L (135-145) 01/22/24 06:32
Potassium 3.8 mmol/L (3.5-5.1) 01/22/24 06:32
Chloride 114 mmol/L (98-107) H 01/22/24 06:32
Carbon Dioxide 20 mmol/L (22-30) L 01/22/24 06:32
BUN 78 mg/dl (9-20) H 01/22/24 06:32
Creatinine 2.3 mg/dL (0.7-1.3) H 01/22/24 06:32
eGFR 28.18 01/22/24 06:32
Glucose 99 mg/dl (70-99) 01/22/24 06:32
Calcium 7.9 mg/dl (8.4-10.2) L 01/22/24 06:32
Albumin 2.2 g/dl (3.5-5.0) L 01/22/24 06:32
Data Reviewed
-
Radiology: Image Personally Visualized and interpreted (c/f PNA)
Ultrasound: Report Reviewed by me (ultrasound showing hydronephrosis of the L kidney which is atrophic )
Labs: Labs Reviewed by me, Discussed with Physician and Discussed with Family
Old Records: Reviewed
Assessment/Plan
-
Assessment:
JACINTA
NAGMA
AMS
sepsis
Plan:
- patient likely has ATN based on the chronicity of disease. ddx also includes post renal/AIN
- like taking longer to recover in the setting of atrophic L kidney and hydro
- could consider bladder scan/Alejandra insertion and see if there is any improvement in the kidney function
- obtain urine eos, urine na and urine cr
- vanc trough slightly elevated --> but timeline does not fit vanc nephrotoxocity
- continue with IVF as you are
- monitor I/Os
[2024-01-22 15:30] VITALS: BP 120/61
[2024-01-22 18:46] LABS: Urine Sodium 16 mmol/L (30-90)
[2024-01-22] MEDS: MELATONIN 3 MG PO (21:49)
[2024-01-22 23:28] VITALS: BP 134/65
[2024-01-23] MEDS: ZOSYN 50 IV ×4 (01:35→22:13)
[2024-01-23] MEDS: NSS 1000 IV ×3 (03:58→23:47)
[2024-01-23 06:55] LABS: Hematocrit 21.8 % (39.0-52.0); Hemoglobin 7.3 g/dL (13.0-18.0); Mean Corp Hgb Conc. 33.5 g/dL (33.0-37.0); Mean Corpuscular Hgb 28.1 pg (27.0-31.0); Mean Corpuscular Volume 83.8 fL (80.0-94.0); Mean Platelet Volume 10.9 fL (7.4-10.4); Platelet Count 114 10^3/uL (130-400); Red Cell Dist. Width 17.6 % (11.5-14.5); White Blood Cell Count 6.3 10^3/uL (4.8-10.8)
[2024-01-23 07:13] LABS: Blood Urea Nitrogen 62 mg/dl (9-20); Calcium 7.6 mg/dl (8.4-10.2); Carbon Dioxide 19 mmol/L (22-30); Chloride 117 mmol/L (98-107); Estimated Creatinine Clearance 32 ml/min; Glucose 95 mg/dl (70-99); Potassium 3.7 mmol/L (3.5-5.1); Sodium 141 mmol/L (135-145); eGFR 37.82
[2024-01-23 07:18] LABS: Vancomycin Random 12.5 ug/ml
[2024-01-23 07:45] VITALS: BP 125/66
--- NOTE | 2024-01-23 08:00 | W.PN.HOSP.TC ---
Addendum entered and electronically signed by Yoly Guerrero MD 01/23/24 18:22:
I saw and evaluated the patient independently. I reviewed the resident�s note and agree with findings and plan as documented by Dr. Luis.
GENERAL: well developed, well nourished, male agitated and moving legs around, speaking loudly
HEENT: NC/AT--off O2
HEART: regular rate and rhythm, +S1, +S2
LUNGS : clear to auscultation bilaterally
ABDOM: soft, nontender, nondistended, + bowel sounds
EXT: no cyanosis, clubbing-- left leg with redness to leg anterior santana with bilateral heel ulcers
NEUROLOGIC: moves all extremities
Sepsis (early) with toxic metabolic encephalopathy--due to left lower extremity with cellulitis, improving--no UTI as culture no growth-- x-ray of the tibia and fibula did not show any foreign bodies--inflammatory markers elevated, trend--continue
IV vancomycin with pharmacy to dose and IV Zosyn for now--apprec ID
Acute kidney injury on chronic kidney disease presumed stage III--appears baseline creatinine is approximately 1.3--creatinine on admission is 2.3, remains 2.3 despite IVF--pt retaining and mcgregor placed, flomax started--continue IV fluids--apprec
renal
Transaminitis--possibly due to sepsis, improved--patient has no abdominal pain on palpation--no organomegaly that I can appreciate--US without acute findings
Anemia--likely of chronic disease--hemoglobin on admission is 8.5, down to 7.3 with hydration--no active bleeding
Hyponatremia--lower limit of normal 135, patient presents at 134--resolved
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
psych, these diagnoses are likely correct--cont Sinemet
History of bipolar 1--psych consult--cont sertraline
History of congestive heart failure unknown type--consideration for echocardiogram to be done this admission
Patient on chronic anticoagulation therapy with Eliquis--for presumed paroxysmal atrial fibrillation although cannot verify this
Essential hypertension--hold BP meds as patient somewhat hypotensive--continue IV fluids--restart meds as able
DVT prophylaxis--hold Eliquis for now--cannot prescribe sequential compression devices with patient's left lower extremity cellulitis and tenderness to palpation
CODE STATUS--appears to be full code
Original Note:
Today's Communication/Plan
-
Continue IV antibiotics, IV fluids, Mcgregor
Assessment / Plan
Assessment / Plan
#Sepsis:
secondary to cellulitis vs pneumonia vs UTI
Leukocytosis (wbc 21 + left shift), reported measured fever 100.4 prior to admission, lactate 1.8, CRP/ESR elevated
Non-anion gap metabolic acidosis
Toxic metabolic encephalopathy: [facility]
Speech therapy evaluation: IDD6 (soft, bite sized) recommended. Diet resumed
urine culture no significant growth
x-ray of the tibia and fibula did not show any foreign bodies
CXR: There is mild bibasilar parenchymal opacity, and left perihilar interstitial prominence, suspicious for pneumonia. No radiographically demonstrable pleural effusion or pneumothorax
-Continue broad spectrum coverage: Zosyn + Vancomycin.
-Leukocytosis resolved, afebrile since admission
-Appreciate ID consult: blood cx not recommended
#Acute kidney injury on CKD (unclear stage, likely stage III):
Baseline creatinine is approximately 1.3
Creatinine on admission is 2.3, improved today 1.8.
Prerenal vs urinary retention. Fena 0.4%
-Mcgregor inserted for retention. Continue IVF. Flomax added
-Appreciate renal input
#Transaminitis
Likely reactive
No abdominal complaints, negative abd physical exam
-Resolved
Anemia
Likely of chronic disease--hemoglobin on admission is 8.5--drop to 7.7 --> 7.3 with IV fluid administration
Folate normal, B12 mildly elevated. Iron studies indicative of anemia of chronic disease
-Continue to monitor. Will transfuse if necessary
Hyponatremia
Mild. 134 on presentation. Resolved with IVF
-Follow BMP
Wounds:
Stage I sacral pressure injury, bilateral full-thickness heel wounds
-Wound care
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 seen by neurology at that time
Family disputes these diagnoses, suggests that behavioral change is secondary to medication effect
Speech therapy evaluation: IDD6 (soft, bite sized) recommended. Diet resumed
-Currently on Sinemet. Continue
-Appreciate psych input. -Avoid first generation antipsychotics for risk of extrapyramidal symptoms. Avoid benzodiazepines. Will consider Seroquel for behavioral disturbance if necessary
History of bipolar 1, Obsessive compulsive disorder
Perserveration noted on physical exam, anxious, pressured speech
Remote diagnosis of Bipolar disorder with long history of lithium use. Discontinued [place] some months ago. Patient's family noted improvement in behavior after [place] stopped
-Appreciate psych input: Preserverative symptoms may be signs of Lewy body dementia. Patient on sertraline. Continue
History of congestive heart failure unknown type
Lung exam normal, LE edema unilateral (left).
-Will consider echo on this visit
Patient on chronic anticoagulation therapy with Eliquis--for presumed paroxysmal atrial fibrillation although cannot verify this
Essential hypertension--hold BP meds as patient somewhat hypotensive--continue IV fluids
DVT prophylaxis: Eliquis
CODE STATUS--appears to be full code
-
Anticipated Discharge: 24 - 48 hours
Subjective/Interval History
-
Date of Service: January 23, 2024
Objective Data
-
Labs:
Laboratory Results
01/23/24
06:11
WBC 6.3
Hgb 7.3 L
Hct 21.8 L
Plt Count 114 L D
Sodium 141
Potassium 3.7
Chloride 117 H
Carbon Dioxide 19 L
BUN 62 H
Creatinine 1.8 H
Glucose 95
Calcium 7.6 L
Vital Signs:
Vital Signs
Temp Pulse Resp BP Pulse Ox
97.8 F 59 19 134/65 98
01/22/24 23:28 01/22/24 23:28 01/22/24 23:28 01/22/24 23:28 01/22/24 23:28
I&O
01/22/24 01/23/24 01/24/24
06:59 06:59 06:59
Intake Total 3710 / 3710 3320 / 3320
Output Total 2540 / 2540 1750 / 1750
Balance 1170 / 1170 1570 / 1570
Review of Systems
-
History Source: Patient
Respiratory: Reports No Symptoms; Denies Trouble Breathing
Cardiac: Denies Chest Pain
Abdomen/GI: Denies Abdominal Pain
Genitourinary: Denies Difficulty Voiding
Physical Exam
-
Respiratory: Non Labored Respirations and Decreased Breath Sounds (Bilateral lower lobe); Negative Wheezes, Rales, Rhonchi or Crackles
Cardiac: Regular Rhythm and S1/S2; Negative Murmur or Rub
GI: Soft, Nontender and Nondistended
Genito-urinary: Clear Urine and Mcgregor
Musculoskeletal: No Clubbing, No Cyanosis, Edema, Left Lower Extrem (Erythema) and Other; Negative Edema, Right Lower Extrem
Skin: Warm and Dry
Neuro: Awake and Alert
Psych: Anxious
--- NOTE | 2024-01-23 08:07 | PHA.VAN.FU ---
Vancomycin Assessment / Plan
- Assessment
Renal Function: SCR Decreasing
WBC's are: Trending Down
In the past 24 hrs, patient has been: Afebrile
Concomitant Antimicrobials: Pip-tazo
- Assessment - Therapeutic Drug Monitoring
Random Level: 12.5 ~ 41hrs post Vanc 1000mg
- Dosing Plan
Continue: Dose by level
Dosing by Level: Re-dose today (Vanc 750mg--11mg/kg)
- Monitoring Plan
Random Level: 01/23 with AM labs
- Follow Up
Pharmacy will continue to follow.
Vancomycin Follow UP
- -
Patient Age: 78
Patient Sex: Male
Vancomycin Day #: 4
Indication: Skin And Soft Tissue ([L] ANTERIOR AGUAYO WOUND)
Requesting Provider: MAX Molina
Height / Weight:
Height 5 ft 10 in
Actual Weight 67.67 kg
Pertinent Past Medical History: outpt treated w/ doxy and cipro; h/o colonization w/ MRSA
- Vital Signs / Lab Results
Temp Pulse Resp BP Pulse Ox
97.8 F 59 19 134/65 98
01/22/24 23:28 01/22/24 23:28 01/22/24 23:28 01/22/24 23:28 01/22/24 23:28
Lab Results - Hematology
01/20/24 01/21/24 01/22/24
12:08 05:34 06:32
WBC 21.4 H 19.9 H 13.0 H
Band Neutrophils 10 H
01/23/24
06:11
WBC 6.3
Band Neutrophils
Lab Results - Chemistry
01/20/24 01/21/24 01/22/24
12:08 05:33 06:32
BUN 67 H 79 H 78 H
Creatinine 2.3 H 2.3 H 2.3 H
Estimated Creat Clear 23 25
Albumin 2.7 L 2.5 L 2.2 L
01/23/24
06:11
BUN 62 H
Creatinine 1.8 H
Estimated Creat Clear 32
Albumin
01/20/24 01/20/24 01/20/24
12:08 16:08 20:08
Lactic Acid 1.8 Cancelled Cancelled
Microbiology Results
01/20/24 12:08 Urine Culture - Final
Urine No Significant Growth
Therapeutic Drug Monitoring
Random Vancomycin 12.5 ug/ml 01/23/24 06:11
[2024-01-23] MEDS: DAKIN'S SOLUTION 0.125% 1/4 STRENGTH 473 ML TOPICAL (09:25)
[2024-01-23] MEDS: PROTONIX IV 40 MG IV (09:26)
[2024-01-23] MEDS: VITAMIN C 500 MG PO (09:26)
[2024-01-23] MEDS: NSS (PRESERVATIVE FREE) 10 ML IV (09:26)
[2024-01-23] MEDS: PEPCID 20 MG PO (09:26)
[2024-01-23] MEDS: LIORESAL 2.5 MG PO ×2 (09:26→22:13)
[2024-01-23] MEDS: ZOLOFT 25 MG PO (09:26)
[2024-01-23] MEDS: SINEMET 25-100 1 TABLET PO ×3 (09:26→22:14)
[2024-01-23] MEDS: ELIQUIS 5 MG PO ×2 (09:26→22:14)
[2024-01-23] MEDS: THERAGRAN 1 TABLET PO (09:27)
[2024-01-23] MEDS: VITAMIN D3 (cholecalciferol) 125 MCG PO (09:27)
[2024-01-23] MEDS: IODOSORB 1 APPLIC TOPICAL (09:27)
[2024-01-23] MEDS: VANCOCIN 150 IV (10:53)
--- NOTE | 2024-01-23 11:30 | PTCARENOTE ---
pt bladder scanned for boilers inspector and straight cathed for fifth time overnight. per protocol to place mcgregor after 3rd straight cath. this nurse reached out to MD to confirm placement. when bladder scanned pt was retaining 1100ml and calling out ' I
have to pee, I have to pee', 16 norwegian placed on patient and it had an initial output of 1400ml of clear yellow urine. stat lock placed on JESISCA thigh. MD and resident made aware. pt receiving IVF and IV abx. pt tolerating mcgregor at this time.
--- NOTE | 2024-01-23 11:47 | W.PN.NEPH.PH ---
Today's Communication / Plan
-
- continue IVF
- continue Alejandra
Assessment/Plan
-
Assessment:
JACINTA
NAGMA
AMS
sepsis
Plan:
- patient likely has ATN based on the chronicity of disease. ddx also includes post renal/AIN
- like taking longer to recover in the setting of atrophic L kidney and hydro
- Alejandra placed this AM
- Cr improving today, peak 2.3, down to 1.8
- urine sodium low, continue with fluids as you are
- urine eos pending
- vanc trough slightly elevated --> but timeline does not fit vanc nephrotoxocity
- monitor I/Os
-
-
Date of Service: January 23, 2024
CC / HPI / ROS
-
Chief Complaint:
JACINTA
History of Present Illness:
Cr 2.3, down to 1.8
excellent UOP with Alejandra
Review of Systems:
confused
Labs
-
Labs:
WBC 6.3 10^3/uL (4.8-10.8) 01/23/24 06:11
RBC 2.60 10^6/uL (4.70-6.10) L 01/23/24 06:11
Hgb 7.3 g/dL (13.0-18.0) L 01/23/24 06:11
Hct 21.8 % (39.0-52.0) L 01/23/24 06:11
Plt Count 114 10^3/uL (130-400) L D 01/23/24 06:11
Sodium 141 mmol/L (135-145) 01/23/24 06:11
Potassium 3.7 mmol/L (3.5-5.1) 01/23/24 06:11
Chloride 117 mmol/L (98-107) H 01/23/24 06:11
Carbon Dioxide 19 mmol/L (22-30) L 01/23/24 06:11
BUN 62 mg/dl (9-20) H 01/23/24 06:11
Creatinine 1.8 mg/dL (0.7-1.3) H 01/23/24 06:11
eGFR 37.82 01/23/24 06:11
Glucose 95 mg/dl (70-99) 01/23/24 06:11
Calcium 7.6 mg/dl (8.4-10.2) L 01/23/24 06:11
Albumin 2.2 g/dl (3.5-5.0) L 01/22/24 06:32
Physical Exam
-
Vital Signs:
Vital Signs
Temp Pulse Resp BP Pulse Ox
97.6 F 59 18 125/66 100
01/23/24 07:45 01/23/24 07:45 01/23/24 07:45 01/23/24 07:45 01/23/24 07:45
Cardiovascular:: Regular rate and rhythm
Respiratory:: Bilateral: Coarse
Lung Excursion:: Normal
Abdomen:: Nontender and Soft
Bowel Sounds:: Normal
Extremity Edema:: None: Bilateral:
Alejandra Catheter: Yes
[2024-01-23] MEDS: FLOMAX 0.4 MG PO (14:02)
[2024-01-23] MEDS: MELATONIN 3 MG PO (22:14)
[2024-01-23 22:28] VITALS: BP 133/60
[2024-01-24] MEDS: ZOSYN 50 IV ×4 (02:57→21:20)
[2024-01-24 06:25] LABS: Vancomycin Random 13.7 ug/ml
[2024-01-24 06:26] LABS: Blood Urea Nitrogen 44 mg/dl (9-20); Calcium 7.5 mg/dl (8.4-10.2); Carbon Dioxide 19 mmol/L (22-30); Chloride 119 mmol/L (98-107); Estimated Creatinine Clearance 38 ml/min; Glucose 92 mg/dl (70-99); Potassium 3.7 mmol/L (3.5-5.1); Sodium 142 mmol/L (135-145); eGFR 47.06
[2024-01-24 06:27] LABS: Hematocrit 20.1 % (39.0-52.0); Hemoglobin 6.8 g/dL (13.0-18.0); Mean Corp Hgb Conc. 33.8 g/dL (33.0-37.0); Mean Corpuscular Hgb 28.3 pg (27.0-31.0); Mean Corpuscular Volume 83.8 fL (80.0-94.0); Platelet Count 110 10^3/uL (130-400); Red Cell Dist. Width 17.1 % (11.5-14.5); White Blood Cell Count 5.5 10^3/uL (4.8-10.8)
[2024-01-24] MEDS: NSS IV (06:37)
--- NOTE | 2024-01-24 06:47 | W.PN.UPDATE ---
Update Note
Progress Note Update
Hgb level 6.8 this am, no signs of bleeding, vital signs within normal limits. Verbal consent was obtained for blood transfusion from the /Gina over the phone. Type and screen, one unit of blood ordered.
--- NOTE | 2024-01-24 07:30 | PTCARENOTE ---
Lab phoned with a critical Hgb of 6.8 and Hct 20.1. Covering AUTOMATION CONTROLS ENGINEER notified, orders for type&screen obtained and drawn by phlebotomy, blood consent placed in pt's chart by AUTOMATION CONTROLS ENGINEER.
[2024-01-24 07:50] VITALS: BP 125/71
--- NOTE | 2024-01-24 08:22 | W.PN.HOSP.TC ---
Addendum entered and electronically signed by Shahzad Jarquin MD 01/24/24 17:40:
I saw and evaluated the patient. I reviewed the resident�s note and agree with findings and plan as documented in the resident�s note.
We discussed with ID-recommends MRI for left heel wound. Family wants to pursue further testing and treatments for wound. MRI heel requested.
total time spent on today's encounter was 52 minutes which included time spent in counseling the patient/family regarding diagnosis and treatment plan as listed above, goals of care, and symptom management. Case was discussed with nursing staff,
specialists . All labs and imaging personally reviewed by me. Remainder the time spent in detailed review of previous records, lab data, imaging, and other medical provider documentation.
Original Note:
Today's Communication/Plan
-
Continue Abx
Assessment / Plan
Assessment / Plan
Nonpurulent Left LE cellulitis
Leukocytosis (wbc 21 + left shift), reported measured fever 100.4 prior to admission, lactate 1.8, CRP/ESR elevated
Non-anion gap metabolic acidosis
Toxic metabolic encephalopathy: reported to be altered from baseline at skilled nursing
Speech therapy evaluation: IDD6 (soft, bite sized) recommended. Diet resumed
x-ray of the tibia and fibula did not show any foreign bodies
CXR: There is mild bibasilar parenchymal opacity, and left perihilar interstitial prominence, suspicious for pneumonia. No radiographically demonstrable pleural effusion or pneumothorax
Negative urine Cx
-Continue broad spectrum coverage: Zosyn + Vancomycin.
-Leukocytosis resolved, afebrile since admission
-Appreciate ID consult: blood cx not recommended
#Acute kidney injury on CKD (unclear stage, likely stage III):
Baseline creatinine is approximately 1.3
Creatinine on admission is 2.3, improved today 1.5
Prerenal vs urinary retention. Fena 0.4%
-Alejandra inserted for retention. Flomax added
-Appreciate renal input
#Transaminitis
Likely reactive
No abdominal complaints, negative abd physical exam
-Resolved
Anemia
Likely of chronic disease--hemoglobin on admission is 8.5--drop to 7.7 --> 7.3 with IV fluid administration --> 6.8 today
Folate normal, B12 mildly elevated. Iron studies indicative of anemia of chronic disease
-Type + screen, consent from , Will transfuse 1 unit PRBC
-Repeat CBC in AM
Hyponatremia
Mild. 134 on presentation. Resolved with IVF
-Follow BMP
Wounds:
Stage I sacral pressure injury, bilateral full-thickness heel wounds
-Appreciate Wound care
-Will consult podiatry
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 seen by neurology at that time
Family disputes these diagnoses, suggests that behavioral change is secondary to medication effect
Speech therapy evaluation: IDD6 (soft, bite sized) recommended. Diet resumed
-Currently on Sinemet. Continue
-Appreciate psych input. -Avoid first generation antipsychotics for risk of extrapyramidal symptoms. Avoid benzodiazepines. Will consider Seroquel for behavioral disturbance if necessary
History of bipolar 1, Obsessive compulsive disorder
Perserveration noted on physical exam, anxious, pressured speech
Remote diagnosis of Bipolar disorder with long history of lithium use. Discontinued Kamaili some months ago. Patient's family noted improvement in behavior after Kamaili stopped
-Appreciate psych input: Preserverative symptoms may be signs of Lewy body dementia. Patient on sertraline. Continue
History of congestive heart failure unknown type
Lung exam normal, LE edema unilateral (left).
-Will consider echo on this visit
Patient on chronic anticoagulation therapy with Eliquis--for presumed paroxysmal atrial fibrillation although cannot verify this
Essential hypertension--hold BP meds as patient somewhat hypotensive--continue IV fluids
DVT prophylaxis: Eliquis
CODE STATUS--appears to be full code
-
Anticipated Discharge: > 48 hours
Subjective/Interval History
-
Date of Service: January 24, 2024
Objective Data
-
Labs:
Laboratory Results
01/24/24
05:28
WBC 5.5
Hgb 6.8 L*
Hct 20.1 L*
Plt Count 110 L
Sodium 142
Potassium 3.7
Chloride 119 H
Carbon Dioxide 19 L
BUN 44 H
Creatinine 1.5 H
Glucose 92
Calcium 7.5 L
Vital Signs:
Vital Signs
Temp Pulse Resp BP Pulse Ox
97.4 F 61 16 125/71 97
01/24/24 07:50 01/24/24 07:50 01/24/24 07:50 01/24/24 07:50 01/24/24 07:50
I&O
01/23/24 01/24/24 01/25/24
06:59 06:59 06:59
Intake Total 3320 / 3320 4360 / 4360
Output Total 1750 / 1750 3600 / 3600
Balance 1570 / 1570 760 / 760
Review of Systems
-
Unable to obtain full review of systems at this time due to: Dementia
History Source: Patient
Cardiac: Denies Chest Pain
Abdomen/GI: Denies Abdominal Pain
Genitourinary: Denies Dysuria
Physical Exam
-
General: Appears Chronically Ill
HEENT: Moist Mucous Membranes
Respiratory: Clear to Auscultation (limited due to position and sleepiness)
Cardiac: Regular Rhythm, S1/S2 and Other
GI: Soft, Nontender, Nondistended and Normal Bowel Sounds
Genito-urinary: Clear Urine, Alejandra and Other (clear, nontender blister noted proximal to glans of penis)
Musculoskeletal: No Clubbing, No Cyanosis and Edema, Left Lower Extrem
Skin: Warm, Ulcers (Bilateral heel ulcers) and Other (skin of left leg with erythema and warmth)
Neuro: Other (somnolent, can be aroused with increased effort, unable to answer most questions)
Psych: Calm
[2024-01-24] MEDS: NSS 1000 IV (08:27)
--- NOTE | 2024-01-24 09:14 | PHA.VAN.FU ---
Vancomycin Assessment / Plan
- Assessment
Renal Function: SCR Decreasing
WBC's are: WNL
In the past 24 hrs, patient has been: Afebrile
Concomitant Antimicrobials: piperacillin/tazobactam
- Assessment - Therapeutic Drug Monitoring
Random Level: 13.7 - drawn ~18.5H after previous dose of 750mg
- Dosing Plan
Dosing by Level: Re-dose today (Vanc 750mg)
- Monitoring Plan
Random Level: 01/24 06
- Follow Up
Pharmacy will continue to follow.
Vancomycin Follow UP
- -
Patient Age: 78
Patient Sex: Male
Vancomycin Day #: 5
Indication: Skin And Soft Tissue
Requesting Provider: Dr. Guerrero / Tracy
Pertinent Antimicrobial Allergies:
NKDA
Height / Weight:
Height 5 ft 10 in
Actual Weight 67.67 kg
Pertinent Past Medical History: CKD (baseline SCR ~1.3)
- Vital Signs / Lab Results
Temp Pulse Resp BP Pulse Ox
97.4 F 61 16 125/71 97
01/24/24 07:50 01/24/24 07:50 01/24/24 07:50 01/24/24 07:50 01/24/24 07:50
Lab Results - Hematology
01/22/24 01/23/24 01/24/24
06:32 06:11 05:28
WBC 13.0 H 6.3 5.5
Lab Results - Chemistry
01/22/24 01/23/24 01/24/24
06:32 06:11 05:28
BUN 78 H 62 H 44 H
Creatinine 2.3 H 1.8 H 1.5 H
Estimated Creat Clear 25 32 38
Albumin 2.2 L
Therapeutic Drug Monitoring
Random Vancomycin 13.7 ug/ml 01/24/24 05:31
[2024-01-24 09:20] VITALS: BMI 21.4
--- NOTE | 2024-01-24 09:32 | W.PN.ID1 ---
Date of Service
Date of Service: January 24, 2024
Today's Communication
Continue abx
Assessment / Plan
Nonpurulent cellulitis complicating a chronic wound on the L anterior santana
Unstageable pressure wounds on the L heel, R heel stage 1
Leukocytosis
H/o colonization with MRSA
Limited body dementia
Hx bipolar disorder
Progressive super nuclear palsy
Iron Deficiency Anemia
Essential hypertension
CHF - Unknown Type
Recommendations:
LE compression as tolerated, elevation as tolerated.
Multipodus boots for heel offloading.
Continue vancomycin and zosyn for present
If further aggressive care is desired, would obtain MRI of the L heel to assess for underlying osteomyelitis. May need debridement of the area given noted malodor.
Chief Complaint
-: Other (chronic wounds with cellulitis)
Subjective / Review of Systems
Review of Systems: No Fever
Vital Signs / Physical Exam
Vital Signs
Vital Signs
Temp Pulse Resp BP Pulse Ox
97.4 F 61 16 125/71 97
01/24/24 07:50 01/24/24 07:50 01/24/24 07:50 01/24/24 07:50 01/24/24 07:50
Physical Exam
Constitutional: Comfortable and Chronically Ill
Cardiovascular: Regular Rate and S1/S2; Negative Murmur or Rub
Pulmonary: Clear and Symmetric; Negative Wheezes or Rales
Gastrointestinal: Soft, Non Tender, Non Distended and Normal Bowel Sounds
Skin: Warm and Dry; Negative Rash or Jaundice
Wound: Other (L medial heel - unstageable ulcer with eschar - no sydney probe to bone but positive malodor; R heel stage 1 deep tissue injury. L leg with a chronic wound and some improvement of nonpurulent erythema)
Neurological: Other (Arousable to voice and touch.)
Objective Data
Lab Data
Lab Results
01/24/24 05:28
01/24/24 05:28
ESR 39 mm/hour (0-20) H 01/20/24 12:08
Estimated Creat Clear 38 ml/min 01/24/24 05:28
Lactic Acid Cancelled 01/20/24 20:08
Total Bilirubin 0.4 mg/dl (0.2-1.3) 01/22/24 06:32
AST 31 U/L (17-59) 01/22/24 06:32
ALT 25 U/L (0-50) 01/22/24 06:32
Alkaline Phosphatase 108 U/L (38-126) 01/22/24 06:32
C-Reactive Protein > 270.00 mg/L (0.0-10.00) H 01/20/24 12:08
Most recent labs reviewed.
Micro Results:
01/20/24 12:08 Urine Culture - Final
Urine No Significant Growth
Care Review
Plan reviewed with: Physician (Hospitalist)
[2024-01-24] MEDS: NSS (PRESERVATIVE FREE) 10 ML IV (09:35)
[2024-01-24] MEDS: VANCOCIN 150 IV (09:35)
[2024-01-24] MEDS: PROTONIX IV 40 MG IV (09:36)
[2024-01-24] MEDS: THERAGRAN 1 TABLET PO (09:37)
[2024-01-24] MEDS: LIORESAL 2.5 MG PO ×2 (09:37→21:18)
[2024-01-24] MEDS: FLOMAX 0.4 MG PO (09:37)
[2024-01-24] MEDS: ZOLOFT 25 MG PO (09:37)
[2024-01-24] MEDS: SINEMET 25-100 1 TABLET PO ×3 (09:37→21:19)
[2024-01-24] MEDS: PEPCID 20 MG PO (09:37)
[2024-01-24] MEDS: VITAMIN D3 (cholecalciferol) 125 MCG PO (09:37)
[2024-01-24] MEDS: ELIQUIS 5 MG PO ×2 (09:37→21:19)
[2024-01-24] MEDS: VITAMIN C 500 MG PO (09:37)
[2024-01-24] MEDS: IODOSORB 1 APPLIC TOPICAL (09:38)
[2024-01-24] MEDS: DAKIN'S SOLUTION 0.125% 1/4 STRENGTH 473 ML TOPICAL (09:38)
[2024-01-24 10:04] VITALS: BP 135/70
--- NOTE | 2024-01-24 10:16 | PTCARENOTE ---
pt with new scrotal and penis edema noted by this nurse this morning. small blister on underside of penis. MD and resident following patient made aware. per biological inspector pt only slept two hours last night. pt still repetitively shouting out. Pt
receiving IVF, IV abx and currently receiving 1 unit of PRBC through a new left forearm site that was placed prior to blood administration. pt at bedside and updated on all current care. wound care done at bedside by Cathy with assistance of
PCT. pt placed on static air overlay.
[2024-01-24 10:21] VITALS: BP 136/66
--- NOTE | 2024-01-24 10:30 | WOUNDNOTE ---
R 5TH TOE
--- NOTE | 2024-01-24 10:30 | WOUNDNOTE ---
L HEEL (MEDIAL POSTERIOR)
--- NOTE | 2024-01-24 10:30 | WOUNDNOTE ---
WO RN note: Patient's LE edema and LLE erythema improved since Wednesday. R heel slightly improved. L heel odor remains d/t loosening black necrotic tissue, no surrounding erythema. Sacral skin intact. Penis swollen with a small serous blister along
underside of penis. Alejandra cath intact. Hospitalist resident Shae was in to evaluate penis. Updated Shae re: odor remains L heel wound and to consider podiatry consult to evaluate for L heel wound debridement. Arterial Doppler R DPA .73, R toe
.72; L CAMILLE 1.14, L toe .96. Waffle air overlay after discussing with KAZ Wright. PCT Adiel assisted with turning and applying air overlay mattress. Dressings changed on LLE, heels. Bilateral knee high Sorin wraps applied. Multipodis splints reapplied.
Achilles padded with silicone foam under MP splints. Will follow as needed.
[2024-01-24 12:49] VITALS: BP 140/66
--- NOTE | 2024-01-24 12:57 | W.PN.NEPH.PH ---
Today's Communication / Plan
-
decrease IVF rate
faollow labs
Assessment/Plan
-
Assessment:
JACINTA
NAGMA
AMS
sepsis
Plan:
JACINTA possible multifactorial-sepsis and retention, US shows left hydro with atrophic kidney
cr improving to 1.5, non oliguric
BP are stable, can decrease IVF to 60cc/hr
keep mcgregor-could try VT prior d/c but would suggest to see as out pt, cont flomax
abx per primary
transfusion for anemia
d/w family at bedside
encourage po intake
-
-
Date of Service: January 24, 2024
CC / HPI / ROS
-
Chief Complaint:
JACINTA
History of Present Illness:
Cr down to 1.5
excellent UOP with Mcgregor
BP stable
hb low 6.8, no bleeding per rectum
Review of Systems:
confused, sleepy most of the time
Labs
-
Labs:
WBC 5.5 10^3/uL (4.8-10.8) 01/24/24 05:28
RBC 2.40 10^6/uL (4.70-6.10) L 01/24/24 05:28
Hgb 6.8 g/dL (13.0-18.0) L* 01/24/24 05:28
Hct 20.1 % (39.0-52.0) L* 01/24/24 05:28
Plt Count 110 10^3/uL (130-400) L 01/24/24 05:28
Sodium 142 mmol/L (135-145) 01/24/24 05:28
Potassium 3.7 mmol/L (3.5-5.1) 01/24/24 05:28
Chloride 119 mmol/L (98-107) H 01/24/24 05:28
Carbon Dioxide 19 mmol/L (22-30) L 01/24/24 05:28
BUN 44 mg/dl (9-20) H 01/24/24 05:28
Creatinine 1.5 mg/dL (0.7-1.3) H 01/24/24 05:28
eGFR 47.06 01/24/24 05:28
Glucose 92 mg/dl (70-99) 01/24/24 05:28
Calcium 7.5 mg/dl (8.4-10.2) L 01/24/24 05:28
Albumin 2.2 g/dl (3.5-5.0) L 01/22/24 06:32
Physical Exam
-
Vital Signs:
Vital Signs
Temp Pulse Resp BP Pulse Ox
98.3 F 58 16 140/66 97
01/24/24 12:49 01/24/24 12:49 01/24/24 12:49 01/24/24 12:49 01/24/24 07:50
Cardiovascular:: Regular rate and rhythm
Respiratory:: Bilateral: CTA
Lung Excursion:: Normal
Abdomen:: Nontender and Soft
Extremity Edema:: None: Bilateral:
Mcgregor Catheter: Yes
[2024-01-24 15:10] VITALS: BP 136/73
--- NOTE | 2024-01-24 16:02 | CM ---
Reviewed chart notes and spoke with the spouse at the bedside. The patient's spouse is interested in patient discharging to his home with spouse and care through [facility]. Patient's spouse in process of arranging for [facility] support care aides. Called
[facility] ([phone]) to see if they offer VN/PT/OT support, as well as, home aides. Hours of operation (8:30pm to 4:00pm). Spouse will have support in home on Wednesday or Wednesday to bring patient home. Services need to be in place prior to
discharge. CM continues to be available to patient/family and is monitoring medical plan for needs at discharge.
Plan: Discharge to home with supports in place (home aides with VN/PT/OT).
[2024-01-24] MEDS: MELATONIN 3 MG PO (21:18)
[2024-01-24 23:07] VITALS: BP 151/68
[2024-01-25] MEDS: ZOSYN 50 IV ×4 (02:38→23:36)
[2024-01-25 06:08] LABS: Hematocrit 22.6 % (39.0-52.0); Hemoglobin 7.6 g/dL (13.0-18.0); Mean Corp Hgb Conc. 33.6 g/dL (33.0-37.0); Mean Corpuscular Hgb 27.8 pg (27.0-31.0); Mean Corpuscular Volume 82.8 fL (80.0-94.0); Mean Platelet Volume 11.3 fL (7.4-10.4); Platelet Count 143 10^3/uL (130-400); Red Blood Cell Count 2.73 10^6/uL (4.70-6.10); Red Cell Dist. Width 17.4 % (11.5-14.5); White Blood Cell Count 5.9 10^3/uL (4.8-10.8)
[2024-01-25 06:20] LABS: Vancomycin Random 14.2 ug/ml
[2024-01-25 06:31] LABS: Blood Urea Nitrogen 29 mg/dl (9-20); Calcium 7.6 mg/dl (8.4-10.2); Carbon Dioxide 21 mmol/L (22-30); Chloride 117 mmol/L (98-107); Estimated Creatinine Clearance 44 ml/min; Glucose 88 mg/dl (70-99); Potassium 3.7 mmol/L (3.5-5.1); Sodium 141 mmol/L (135-145); eGFR 55.88
[2024-01-25 07:15] VITALS: BP 161/82
--- NOTE | 2024-01-25 09:05 | W.PN.POD ---
Today's Communication
- Today's Communication
podiatry consult for chronic unstageable heel wounds
Assessment / Plan
- -
chronic unstageable left heel wound
no debridement of wound recommended at this time
suggest adding Santyl ointment to dressing instead
will followup possible debridement
continue current wound care treatment right heel wound
and 5th toe
continue offloading of heels
Subjective/Objective
- Subjective
78 y/o male presents to ED with right leg cellulitis
with chronic pressure unstageable wounds both heels
and wound anterior left santana
x-rays negative for osteo
arterial doppler elvia left 1.14 right .72
patient on Eliquis
at bedside patient with roman bandage compression, elevated with multipodus boots
adhesive silicone foam bandages heels
- Objective
Temp Pulse Resp BP Pulse Ox
97.5 F 70 20 161/82 94
01/25/24 07:15 01/25/24 07:15 01/25/24 07:15 01/25/24 07:15 01/25/24 07:15
01/25/24 05:50
01/25/24 05:50
Vital Signs and Lab results were reviewed.
2 wounds right heel healing well
no odor
good wound beds
no slough or surrounding hyperkeratotic tissue
abrasion noted 5th toe right healing well
small opening remains
moderate sized wound medial left heel
some odor noted
no purulent drainage
necrotic dark tissue noted in center
area loosening
no undermining or tunnelling
wound unstageable, possible stage 3 or 4
--- NOTE | 2024-01-25 09:22 | PN.CDI ---
CDI
- -
CDI:
Physician Documentation Request
Admit Date: 01/20/24 15:39
Dear Doctor Janelle,
Please review the following and provide your response in the progress notes.
Clinical Indicators:
The diagnosis of sepsis was documented on 01/19-01/22 PN but is not consistently noted in subsequent documentation.
- 01/22 PN 'Sepsis (early) with toxic metabolic encephalopathy--due to left lower extremity with cellulitis'
- 01/23 PN 'Nonpurulent Left LE cellulitis'
- 'Leukocytosis (wbc 21 + left shift), reported measured fever 100.4 prior to admission, lactate 1.8, CRP/ESR elevated'
- IV abx Zosyn, Vancomycin
- IVF 10.5L NSS given
Please clarify the following:
____ - Sepsis was present on admission and is now resolved.
____ - Sepsis was present on admission and is still being monitored, evaluated or treated
____ - Sepsis was ruled out
____ - Sepsis is still a likely, suspected, probable diagnosis
____ - Other
Use of terms such as suspected, likely, concern for, or probable (associated with a specific diagnosis that is being evaluated, monitored, or treated as if it exists) are acceptable and can be coded in the inpatient setting, when documented at the
time of discharge.
Thank you,
Iron Mccabe RN
CDI Specialist
Please use your independent medical judgment in providing your response.
--- NOTE | 2024-01-25 10:01 | PHA.VAN.FU ---
Vancomycin Assessment / Plan
- Assessment
Renal Function: SCR Decreasing
WBC's are: WNL
In the past 24 hrs, patient has been: Afebrile
Concomitant Antimicrobials: piperacillin/tazobactam
- Assessment - Therapeutic Drug Monitoring
Random Level: 14.2 - drawn ~20.5H after previous dose of 750mg
- Dosing Plan
Dosing by Level: Re-dose today (Vanc 750mg)
Slight increasing trend in level but SCR continues to trend down
Will re-dose with 750mg again today but if continues to increase, may consider dose reduction or prolonging interval
- Follow Up
Pharmacy will continue to follow.
Vancomycin Follow UP
- -
Patient Age: 78
Patient Sex: Male
Vancomycin Day #: 6
Indication: Skin And Soft Tissue
Requesting Provider: Dr. Guerrero / Tracy
Pertinent Antimicrobial Allergies:
NKDA
Height / Weight:
Height 5 ft 10 in
Actual Weight 67.67 kg
Pertinent Past Medical History: CKD (baseline SCR ~1.3)
- Vital Signs / Lab Results
Temp Pulse Resp BP Pulse Ox
97.5 F 70 20 161/82 94
01/25/24 07:15 01/25/24 07:15 01/25/24 07:15 01/25/24 07:15 01/25/24 07:15
Lab Results - Hematology
01/23/24 01/24/24 01/25/24
06:11 05:28 05:50
WBC 6.3 5.5 5.9
Lab Results - Chemistry
01/23/24 01/24/24 01/25/24
06:11 05:28 05:50
BUN 62 H 44 H 29 H
Creatinine 1.8 H 1.5 H 1.3
Estimated Creat Clear 32 38 44
Therapeutic Drug Monitoring
Random Vancomycin 14.2 ug/ml 01/25/24 05:50
[2024-01-25] MEDS: LIORESAL 2.5 MG PO ×2 (10:04→21:28)
[2024-01-25] MEDS: PEPCID 20 MG PO (10:04)
[2024-01-25] MEDS: SINEMET 25-100 1 TABLET PO ×3 (10:04→21:30)
[2024-01-25] MEDS: FLOMAX 0.4 MG PO (10:04)
[2024-01-25] MEDS: VITAMIN C 500 MG PO (10:05)
[2024-01-25] MEDS: THERAGRAN 1 TABLET PO (10:05)
[2024-01-25] MEDS: VITAMIN D3 (cholecalciferol) 125 MCG PO (10:05)
[2024-01-25] MEDS: ELIQUIS 5 MG PO ×2 (10:05→21:27)
[2024-01-25] MEDS: ZOLOFT 25 MG PO (10:05)
[2024-01-25] MEDS: SANTYL OINTMENT 1 APPLIC TOPICAL (10:05)
[2024-01-25] MEDS: PROTONIX IV 40 MG IV (10:06)
[2024-01-25] MEDS: NSS (PRESERVATIVE FREE) 10 ML IV (10:06)
[2024-01-25] MEDS: DAKIN'S SOLUTION 0.125% 1/4 STRENGTH 473 ML TOPICAL (10:07)
[2024-01-25] MEDS: VANCOCIN 150 IV (12:11)
[2024-01-25] MEDS: IODOSORB 1 APPLIC TOPICAL (12:12)
--- NOTE | 2024-01-25 12:36 | W.PN.NEPH.PH ---
Today's Communication / Plan
-
follow labs off IVF
Assessment/Plan
-
Assessment:
JACINTA
NAGMA
AMS
sepsis
Plan:
JACINTA possible multifactorial-sepsis and retention, US shows left hydro with atrophic kidney
cr improving to 1.3, non oliguric , ok for MRI foot with waldemar as GFR is >30cc/min
BP are stable
keep mcgregor-could try VT prior d/c but would suggest to see as out pt, cont flomax
abx per primary
follow h/h s/p PRBC 01/23
d/w family at bedside
-
-
Date of Service: January 25, 2024
CC / HPI / ROS
-
Chief Complaint:
JACINTA
History of Present Illness:
Cr down to 1.3
non oliguric UOP with Mcgregor
BP stable
hb better at 7.6 s/p 1 PRBC On 01/23
Review of Systems:
more awake and talking
but sleepy most of the time
Labs
-
Labs:
WBC 5.9 10^3/uL (4.8-10.8) 01/25/24 05:50
RBC 2.73 10^6/uL (4.70-6.10) L 01/25/24 05:50
Hgb 7.6 g/dL (13.0-18.0) L 01/25/24 05:50
Hct 22.6 % (39.0-52.0) L 01/25/24 05:50
Plt Count 143 10^3/uL (130-400) D 01/25/24 05:50
Sodium 141 mmol/L (135-145) 01/25/24 05:50
Potassium 3.7 mmol/L (3.5-5.1) 01/25/24 05:50
Chloride 117 mmol/L (98-107) H 01/25/24 05:50
Carbon Dioxide 21 mmol/L (22-30) L 01/25/24 05:50
BUN 29 mg/dl (9-20) H 01/25/24 05:50
Creatinine 1.3 mg/dL (0.7-1.3) 01/25/24 05:50
eGFR 55.88 01/25/24 05:50
Glucose 88 mg/dl (70-99) 01/25/24 05:50
Calcium 7.6 mg/dl (8.4-10.2) L 01/25/24 05:50
Albumin 2.2 g/dl (3.5-5.0) L 01/22/24 06:32
Physical Exam
-
Vital Signs:
Vital Signs
Temp Pulse Resp BP Pulse Ox
97.5 F 70 20 161/82 94
01/25/24 07:15 01/25/24 07:15 01/25/24 07:15 01/25/24 07:15 01/25/24 07:15
Cardiovascular:: Regular rate and rhythm
Respiratory:: Bilateral: CTA (decreased)
Lung Excursion:: Normal
Abdomen:: Nontender and Soft
Extremity Edema:: None: Bilateral:
Mcgregor Catheter: Yes
--- NOTE | 2024-01-25 12:53 | CM ---
Reviewed the chart notes and spoke with the patient's spouse at the bedside. CM did speak with [facility], they do not provide VN services, only homecare for companionship and light household cleaning, etc. The patient's spouse still unsure if she wants
discharged to home or initially back to [facility] prior to home since home aides have not been secured at this time. Patient's spouse has called and left multiple messages with [facility] coordinators. [facility]. They would be willing to accept the patient back. He has 2 days left on insurance. CM continues to be available to patient/family and is monitoring medical plan for needs at discharge.
Plan: Home with VN/PT/OT and home health aides or back to [facility] while family decides.
--- NOTE | 2024-01-25 13:46 | W.PN.HOSP.TC ---
Addendum entered and electronically signed by Shahzad Jarquin MD 01/25/24 15:07:
I saw and evaluated the patient. I reviewed the resident�s note and agree with findings and plan as documented in the resident�s note.
Afebrile and normalized white count of from cellulitis standpoint. Continue with antibiotics per ID. Await MRI of the left heel for further evaluation.
Discussed with at bedside regarding the treatment and testing.
Original Note:
Today's Communication/Plan
-
IV abx, follow CBC
Assessment / Plan
Assessment / Plan
Nonpurulent Left LE cellulitis
Leukocytosis (wbc 21 + left shift), reported measured fever 100.4 prior to admission, lactate 1.8, CRP/ESR elevated
Non-anion gap metabolic acidosis
Toxic metabolic encephalopathy: reported to be altered from baseline at senior living
Speech therapy evaluation: IDD6 (soft, bite sized) recommended. Diet resumed
x-ray of the tibia and fibula did not show any foreign bodies
CXR: There is mild bibasilar parenchymal opacity, and left perihilar interstitial prominence, suspicious for pneumonia. No radiographically demonstrable pleural effusion or pneumothorax
Negative urine Cx
-Continue broad spectrum coverage: Zosyn + Vancomycin.
-Leukocytosis resolved, afebrile since admission
-MRI of left foot
-Podiatry consult
-Appreciate ID input
#Acute kidney injury on CKD (unclear stage, likely stage III):
Baseline creatinine is approximately 1.3
Creatinine on admission is 2.3, improved today 1.5
Prerenal vs urinary retention. Fena 0.4%
-Alejandra inserted for retention. Flomax added
-Appreciate renal input
#Transaminitis
Likely reactive
No abdominal complaints, negative abd physical exam
-Resolved
Anemia
Likely of chronic disease--hemoglobin on admission is 8.5--drop to 7.7 --> 7.3 with IV fluid administration --> 6.8
Folate normal, B12 mildly elevated. Iron studies indicative of anemia of chronic disease
-Status post 1 unit PRBC, Hgb 7.6 today
-Repeat CBC in AM
Hyponatremia
Mild. 134 on presentation. Resolved with IVF
-Follow BMP
Wounds:
Stage I sacral pressure injury, bilateral full-thickness heel wounds
-Appreciate Wound care
-podiatry consult
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 seen by neurology at that time
Family disputes these diagnoses, suggests that behavioral change is secondary to medication effect
Speech therapy evaluation: IDD6 (soft, bite sized) recommended. Diet resumed
-Currently on Sinemet. Continue
-Appreciate psych input. -Avoid first generation antipsychotics for risk of extrapyramidal symptoms. Avoid benzodiazepines. Will consider Seroquel for behavioral disturbance if necessary
History of bipolar 1, Obsessive compulsive disorder
Perserveration noted on physical exam, anxious, pressured speech
Remote diagnosis of Bipolar disorder with long history of lithium use. Discontinued [place] some months ago. Patient's family noted improvement in behavior after [place] stopped
-Appreciate psych input: Preserverative symptoms may be signs of Lewy body dementia. Patient on sertraline. Continue.
History of congestive heart failure unknown type
Lung exam normal
-Will consider echo on this visit
Patient on chronic anticoagulation therapy with Eliquis--for presumed paroxysmal atrial fibrillation although cannot verify this
Essential hypertension--hold BP meds as patient somewhat hypotensive--continue IV fluids
DVT prophylaxis: Eliquis
CODE STATUS--appears to be full code
-
Anticipated Discharge: 24 - 48 hours
Subjective/Interval History
-
Date of Service: January 25, 2024
Objective Data
-
Labs:
Laboratory Results
01/25/24
05:50
WBC 5.9
Hgb 7.6 L
Hct 22.6 L
Plt Count 143 D
Sodium 141
Potassium 3.7
Chloride 117 H
Carbon Dioxide 21 L
BUN 29 H
Creatinine 1.3
Glucose 88
Calcium 7.6 L
Vital Signs:
Vital Signs
Temp Pulse Resp BP Pulse Ox
97.5 F 70 20 161/82 94
01/25/24 07:15 01/25/24 07:15 01/25/24 07:15 01/25/24 07:15 01/25/24 07:15
I&O
01/24/24 01/25/24 01/26/24
06:59 06:59 06:59
Intake Total 4360 / 4360 4260 / 4260 100 / 100
Output Total 3600 / 3600 2475 / 2475
Balance 760 / 760 1785 / 1785 100 / 100
Review of Systems
-
History Source: Patient
Cardiac: Denies Chest Pain
Abdomen/GI: Denies Abdominal Pain
Musculoskeletal: Reports Other (No lower extremity pain)
Neuro: Denies Headache
Physical Exam
-
General: Cachectic
HEENT: Hearing Impaired
Respiratory: Clear to Auscultation and Non Labored Respirations; Negative Wheezes, Rales, Rhonchi or Crackles
Cardiac: Regular Rhythm, S1/S2 and JVD; Negative Murmur or Rub
GI: Soft, Nontender, Nondistended and Normal Bowel Sounds
Genito-urinary: Clear Urine, Alejandra and Other (mild edema of penis)
Musculoskeletal: No Clubbing, No Cyanosis, Edema, Left Upper Extrem, Edema, Left Lower Extrem and Other (mild edema. Left leg erythema and warmth, nontender); Negative Edema, Right Lower Extrem
Skin: Warm, Dry and Other (Bilateral heel ulcers)
Neuro: Awake, Alert, Oriented and AO x 3
Psych: Calm and Confused
[2024-01-25 15:06] VITALS: BP 150/80
[2024-01-25] MEDS: ZOSYN IV (20:26)
[2024-01-25] MEDS: MELATONIN 3 MG PO (21:30)
[2024-01-25 23:40] VITALS: BP 149/57
[2024-01-25 23:50] VITALS: BP 153/72
[2024-01-26] MEDS: ZOSYN 50 IV ×4 (05:40→23:44)
[2024-01-26 06:00] VITALS: BMI 21.2
[2024-01-26 07:50] VITALS: BP 157/75
[2024-01-26 08:03] LABS: Hematocrit 27.2 % (39.0-52.0); Hemoglobin 8.9 g/dL (13.0-18.0); Mean Corp Hgb Conc. 32.7 g/dL (33.0-37.0); Mean Corpuscular Hgb 27.9 pg (27.0-31.0); Mean Corpuscular Volume 85.3 fL (80.0-94.0); Mean Platelet Volume 10.5 fL (7.4-10.4); Platelet Count 150 10^3/uL (130-400); Red Blood Cell Count 3.19 10^6/uL (4.70-6.10); Red Cell Dist. Width 17.4 % (11.5-14.5); White Blood Cell Count 5.9 10^3/uL (4.8-10.8)
[2024-01-26 08:10] LABS: Blood Urea Nitrogen 21 mg/dl (9-20); Calcium 7.8 mg/dl (8.4-10.2); Carbon Dioxide 21 mmol/L (22-30); Chloride 115 mmol/L (98-107); Estimated Creatinine Clearance 47 ml/min; Glucose 79 mg/dl (70-99); Potassium 3.7 mmol/L (3.5-5.1); Sodium 140 mmol/L (135-145); eGFR > 60.00
[2024-01-26 08:33] LABS: Vancomycin Random 14.3 ug/ml
[2024-01-26] MEDS: FLOMAX 0.4 MG PO ×2 (09:45→09:50)
[2024-01-26] MEDS: LIORESAL 2.5 MG PO ×2 (09:46→21:27)
[2024-01-26] MEDS: ELIQUIS 5 MG PO ×2 (09:47→21:27)
[2024-01-26] MEDS: PEPCID 20 MG PO (09:47)
[2024-01-26] MEDS: ZOLOFT 25 MG PO (09:47)
[2024-01-26] MEDS: SINEMET 25-100 1 TABLET PO ×3 (09:47→21:27)
[2024-01-26] MEDS: THERAGRAN 1 TABLET PO (09:48)
[2024-01-26] MEDS: VITAMIN D3 (cholecalciferol) 125 MCG PO (09:48)
[2024-01-26] MEDS: VITAMIN C 500 MG PO (09:48)
[2024-01-26] MEDS: SANTYL OINTMENT 1 APPLIC TOPICAL (09:48)
[2024-01-26] MEDS: PROTONIX IV 40 MG IV (09:50)
[2024-01-26] MEDS: NSS (PRESERVATIVE FREE) 10 ML IV (09:50)
[2024-01-26] MEDS: DAKIN'S SOLUTION 0.125% 1/4 STRENGTH 473 ML TOPICAL (09:51)
[2024-01-26] MEDS: IODOSORB 1 APPLIC TOPICAL (09:51)
--- NOTE | 2024-01-26 09:59 | PN.CDI ---
CDI
- -
CDI:
Physician Documentation Request
Admit Date: 01/20/24 15:39
Dear Doctor Fanny,
Please review the following and provide your response in the progress notes.
Clinical Indicators:
The diagnosis of ATN was documented on 01/22 Nephrology note but is not consistently noted in subsequent documentation.
- 01/22 Nephrology 'patient likely has ATN based on the chronicity of disease. ddx also includes post renal/AIN'
- 'taking longer to recover in the setting of atrophic L kidney and hydro'
- 01/24 Nephrology 'JACINTA possible multifactorial-sepsis and retention'
Please clarify the following:
____ - ATN was present on admission and is now resolved.
____ - ATN was present on admission and is still being monitored, evaluated or treated
____ - ATN was ruled out
____ - ATN is still a likely, suspected, probable diagnosis
____ - Other
Use of terms such as suspected, likely, concern for, or probable (associated with a specific diagnosis that is being evaluated, monitored, or treated as if it exists) are acceptable and can be coded in the inpatient setting, when documented at the
time of discharge.
Thank you,
Iron Mccabe RN
CDI Specialist
Please use your independent medical judgment in providing your response.
--- NOTE | 2024-01-26 10:56 | PHA.VAN.FU ---
Vancomycin Assessment / Plan
- Assessment
Renal Function: SCR Decreasing
WBC's are: WNL
In the past 24 hrs, patient has been: Afebrile
Concomitant Antimicrobials: piperacillin/tazobactam
- Assessment - Therapeutic Drug Monitoring
Random Level: 14.3 - drawn ~19H after after previous dose of 750mg
- Dosing Plan
Dosing by Level: Re-dose today (Vanc 750mg)
- Monitoring Plan
Random Level: 01/26 06
- Follow Up
Pharmacy will continue to follow.
Vancomycin Follow UP
- -
Patient Age: 78
Patient Sex: Male
Vancomycin Day #: 7
Indication: Skin And Soft Tissue
Requesting Provider: Dr. Guerrero / Tracy
Pertinent Antimicrobial Allergies:
NKDA
Height / Weight:
Height 5 ft 10 in
Actual Weight 67.132 kg
Pertinent Past Medical History: CKD (baseline SCR ~1.3)
- Vital Signs / Lab Results
Temp Pulse Resp BP Pulse Ox
97.6 F 66 18 157/75 98
01/26/24 07:50 01/26/24 07:50 01/26/24 07:50 01/26/24 07:50 01/26/24 07:50
Lab Results - Hematology
01/24/24 01/25/24 01/26/24
05:28 05:50 07:30
WBC 5.5 5.9 5.9
Lab Results - Chemistry
01/24/24 01/25/24 01/26/24
05:28 05:50 07:30
BUN 44 H 29 H 21 H
Creatinine 1.5 H 1.3 1.2
Estimated Creat Clear 38 44 47
Therapeutic Drug Monitoring
Random Vancomycin 14.3 ug/ml 01/26/24 07:30
--- NOTE | 2024-01-26 13:03 | W.PN.HOSP.TC ---
Today's Communication/Plan
-
IV Abx, MRI, voiding trial
Assessment / Plan
Assessment / Plan
Nonpurulent Left LE cellulitis
Leukocytosis (wbc 21 + left shift), reported measured fever 100.4 prior to admission, lactate 1.8, CRP/ESR elevated
Non-anion gap metabolic acidosis
Toxic metabolic encephalopathy: reported to be [facility]
Speech therapy evaluation: IDD6 (soft, bite sized) recommended. Diet resumed
x-ray of the tibia and fibula did not show any foreign bodies
CXR: There is mild bibasilar parenchymal opacity, and left perihilar interstitial prominence, suspicious for pneumonia. No radiographically demonstrable pleural effusion or pneumothorax
Negative urine Cx
-Continue broad spectrum coverage: Zosyn + Vancomycin.
-Leukocytosis resolved, afebrile since admission
-MRI of left foot
-Podiatry on board
-Appreciate ID input
#Acute kidney injury on CKD (unclear stage, likely stage III):
Baseline creatinine is approximately 1.3
Creatinine on admission is 2.3, improved today 1.5
Prerenal vs urinary retention. Fena 0.4%
-Alejandra inserted for retention. Flomax added. Voiding trial today
-Appreciate renal input
#Transaminitis
Likely reactive
No abdominal complaints, negative abd physical exam
-Resolved
Anemia
hemoglobin on admission is 8.5--drop to 7.7 --> 7.3 with IV fluid administration --> 6.8
Folate normal, B12 mildly elevated. Iron studies nonspecific.
-Status post 1 unit PRBC, Hgb 8.9 today
-Heme positive stool
-GI consult
Hyponatremia
Mild. 134 on presentation. Resolved with IVF
-Follow BMP
Wounds:
Stage I sacral pressure injury, bilateral full-thickness heel wounds
-Appreciate Wound care
-appreciate podiatry
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 seen by neurology at that time
Family disputes these diagnoses, suggests that behavioral change is secondary to medication effect
Speech therapy evaluation: IDD6 (soft, bite sized) recommended. Diet resumed
-Currently on Sinemet. Continue
-Appreciate psych input. -Avoid first generation antipsychotics for risk of extrapyramidal symptoms. Avoid benzodiazepines. Will consider Seroquel for behavioral disturbance if necessary
History of bipolar 1, Obsessive compulsive disorder
Perserveration noted on physical exam, anxious, pressured speech
Remote diagnosis of Bipolar disorder with long history of lithium use. Discontinued [place] some months ago. Patient's family noted improvement in behavior after [place] stopped
-Appreciate psych input: Preserverative symptoms may be signs of Lewy body dementia. Patient on sertraline. Continue.
History of congestive heart failure unknown type
Lung exam normal
-Will consider echo on this visit
Patient on chronic anticoagulation therapy with Eliquis--for presumed paroxysmal atrial fibrillation although cannot verify this
Essential hypertension--Continue BP meds
DVT prophylaxis: Eliquis
CODE STATUS--appears to be full code
-
Anticipated Discharge: > 48 hours
Subjective/Interval History
-
Date of Service: January 26, 2024
Pt is to get MRI of left foot. states that he should be able to tolerate MRI, Ativan allowed if needed.
Objective Data
-
Labs:
Laboratory Results
01/26/24
07:30
WBC 5.9
Hgb 8.9 L
Hct 27.2 L
Plt Count 150
Sodium 140
Potassium 3.7
Chloride 115 H
Carbon Dioxide 21 L
BUN 21 H
Creatinine 1.2
Glucose 79
Calcium 7.8 L
Vital Signs:
Vital Signs
Temp Pulse Resp BP Pulse Ox
97.6 F 66 18 157/75 98
01/26/24 07:50 01/26/24 07:50 01/26/24 07:50 01/26/24 07:50 01/26/24 07:50
I&O
01/25/24 01/26/24 01/27/24
06:59 06:59 06:59
Intake Total 4260 / 4260 3080 / 3080
Output Total 2475 / 2475 2900 / 2900
Balance 1785 / 1785 180 / 180
Review of Systems
-
History Source: Patient
Respiratory: Reports No Symptoms; Denies Cough or Trouble Breathing
Cardiac: Reports No Symptoms; Denies Chest Pain
Abdomen/GI: Denies Abdominal Pain, Diarrhea or Constipated
Musculoskeletal: Reports Other (No lower extremity pain)
Physical Exam
-
General: Appears Chronically Ill
Respiratory: Clear to Auscultation; Negative Wheezes, Rales or Rhonchi
Cardiac: Regular Rhythm and S1/S2; Negative Murmur
GI: Soft, Nontender, Nondistended and Normal Bowel Sounds
Genito-urinary: Clear Urine and Alejandra
Musculoskeletal: Other (Left leg with erythema, warm to touch. Dressing and wraps intact. )
Neuro: Awake, Alert and Oriented
--- NOTE | 2024-01-26 13:09 | W.PN.NEPH.PH ---
Today's Communication / Plan
-
- nephrology to sign off
Assessment/Plan
-
Assessment:
JACINTA
NAGMA
AMS
sepsis
Plan:
JACINTA possible multifactorial-sepsis and retention, US shows left hydro with atrophic kidney
cr improving to 1.2, non oliguric , ok for MRI foot with waldemar as GFR is >30cc/min
BP are stable
keep mcgregor-could try VT prior d/c but would suggest to see as out pt, cont flomax
abx per primary
follow h/h s/p PRBC 01/23
d/w family at bedside
-
-
Date of Service: January 26, 2024
CC / HPI / ROS
-
Chief Complaint:
JACINTA
History of Present Illness:
Cr down to 1.2
non oliguric UOP with Mcgregor
BP stable
hb better at 8.9 s/p 1 PRBC On 01/23
Review of Systems:
more awake and talking
but sleepy most of the time
Labs
-
Labs:
WBC 5.9 10^3/uL (4.8-10.8) 01/26/24 07:30
RBC 3.19 10^6/uL (4.70-6.10) L 01/26/24 07:30
Hgb 8.9 g/dL (13.0-18.0) L 01/26/24 07:30
Hct 27.2 % (39.0-52.0) L 01/26/24 07:30
Plt Count 150 10^3/uL (130-400) 01/26/24 07:30
Sodium 140 mmol/L (135-145) 01/26/24 07:30
Potassium 3.7 mmol/L (3.5-5.1) 01/26/24 07:30
Chloride 115 mmol/L (98-107) H 01/26/24 07:30
Carbon Dioxide 21 mmol/L (22-30) L 01/26/24 07:30
BUN 21 mg/dl (9-20) H 01/26/24 07:30
Creatinine 1.2 mg/dL (0.7-1.3) 01/26/24 07:30
eGFR > 60.00 01/26/24 07:30
Glucose 79 mg/dl (70-99) 01/26/24 07:30
Calcium 7.8 mg/dl (8.4-10.2) L 01/26/24 07:30
Albumin 2.2 g/dl (3.5-5.0) L 01/22/24 06:32
Physical Exam
-
Vital Signs:
Vital Signs
Temp Pulse Resp BP Pulse Ox
97.6 F 66 18 157/75 98
01/26/24 07:50 01/26/24 07:50 01/26/24 07:50 01/26/24 07:50 01/26/24 07:50
Cardiovascular:: Regular rate and rhythm
Respiratory:: Bilateral: Coarse
Lung Excursion:: Normal
Abdomen:: Nontender and Soft
Bowel Sounds:: Normal
Extremity Edema:: +1: Bilateral:
Mcgregor Catheter: Yes
[2024-01-26] MEDS: VANCOCIN 150 IV (13:28)
--- NOTE | 2024-01-26 14:10 | CM ---
Reviewed the chart notes and spoke with the patient's spouse at the bedside. Voiding trial today. Patient's spouse is leaning towards back to [place] for a few days prior to transitioning back to home. CM continues to be available to patient/family
and is monitoring medical plan for needs at discharge.
Plan: Discharge most likely back to [facility] for short term prior to transitioning back to home.
[2024-01-26 15:30] VITALS: BP 142/72
--- NOTE | 2024-01-26 15:46 | CON.GI ---
Addendum entered and electronically signed by Vane Vasquez MD 01/27/24 08:00:
spoke with patient's in length . patient underwent EGD/ colonoscopy in the past with . unable to recall details. reassured at that time .
Discussed benefit and risks of endoscopic eval for anemia . Patient's would like to hold off on invasive testing like endoscopy . prefer conservative approach. continue further care as per medical team, will s/o.
Addendum entered and electronically signed by Vane Vasquez MD 01/26/24 21:11:
I saw and examined the patient.
The mobile paramedical examiner's note was reviewed and I agree with the note.
poor historian. limited info gathered from patient.
-- acute on chronic normocytic anemia . no overt GI bleeding. FOBT +. ferritin normal. TIBC low. likely AOCD. Hb stable after transfusion
-- dementia
-- bipolar disorder
-- cellulitis . awaiting MRI
-- afib on eliquis
plan
continue monior Hb
will hold off on endoscopic eval at this point ( patient current mental status not sure he will tolerate bowel prep / currently Rx for cellulitis)- will discuss further with family
Original Note:
Consultation
-
Date/Time Consultation Performed: 01/26/24
Performing Provider: Kwesi/Pedro
Reason for Consultation: heme+ stool, anemia
Medical History
Chief Complaint / HPI
History of Present Illness:
78 year old male who presented to ED from a local residential for presumed cellulitis of L leg. He is a poor historian due to dementia and metabolic encephalopathy. From chart review, his medical history includes dementia with lewy bodies with
behavioral disturbance, progressive super nuclear palsy, bipolar disorder, pressure wounds, Fe deficiency anemia, hypertension, CHF, CKD, recurrent UTI
GI consulted for heme+ stool in setting of anemia. On my exam, his hearing is impaired and he is confused. He says sentences repetitively (such as 'this diaper is uncomfortable,' and 'can you tell them to take the diaper off,' even after reassurance
that his nurse and patient primary care sales representative are coming to help). Conversation requires frequent redirection. From what I gathered, he has no GI complaints at this time. He very clearly denied abdominal pain, nausea, vomiting, diarrhea, constipation. He
says he has daily bowel movements that are brown and soft. He denies bloody stools, straining to pass bowel movement, or pain with defecation. He is unsure if his stools are ever black or just dark. He has a good appetite and denies
difficulty/pain/coughing with swallowing. He has occasional reflux. He reports that he had a colonoscopy a few years ago that was normal, and he thinks he had a 'routine' EGD though this was more difficult to ascertain. He tells me that he lives in
a rehabilitation center for a few years, and even though he does not live with his they are not '.' He tells me he has iron deficiency since about 6-12 months ago.
Social History
Personal:
Living: Jail
Allergies / Home Medications
Allergy/AdvReac Type Severity Reaction Status Date / Time
No Known Allergies Allergy Verified 01/06/24 06:13
�Medication �Instructions �Recorded
acetaminophen 325 mg tablet 650 mg PO Q4H PRN mild 12/07/23
pain/temp>101
apixaban 5 mg tablet 5 mg PO Q12 Blood Clot 12/07/23
Prevention/Tx
ascorbic acid (vitamin C) 500 mg 500 mg PO DAILY Supplement 12/07/23
tablet (Vitamin C)
atenolol 50 mg tablet 50 mg PO DAILY Blood Pressure 12/07/23
bisacodyl 10 mg rectal suppository 10 mg MO DAILY PRN if no bm in 12/07/23
(Dulcolax (bisacodyl)) 24hrs after MOM
cholecalciferol (vitamin D3) 125 125 mcg PO DAILY Supplement 12/07/23
mcg (5,000 unit) tablet
famotidine 40 mg tablet 40 mg PO DAILY Gastrointestinal 12/07/23
Issue
loperamide 2 mg capsule 2 mg PO Q4HPRN PRN diarrhea 12/07/23
magnesium hydroxide 400 mg/5 mL 30 ml PO DAILY PRN if no bm after 12/07/23
oral suspension (Milk of Magnesia) 3 days
multivitamin,tx-minerals 1 tab PO DAILY Supplement 12/07/23
sodium phosphates 19 gram-7 118 ml MO DAILY PRN if no bm in 12/07/23
gram/118 mL enema (Fleet Enema) 24hrs after suppository
carbidopa 25 mg-levodopa 100 mg 1 tab PO TID #1 tab 12/13/23
tablet
Calcium Alginate Wound Care 1 applic topical DAILY LLE wound 01/20/24
baclofen 5 mg tablet 2.5 mg PO BID Muscle Spasms 01/20/24
ciprofloxacin HCl 250 mg tablet 250 mg PO BID UTI 01/20/24
(Cipro)
doxycycline hyclate 100 mg tablet 100 mg PO BID LLE cellulitis 01/20/24
melatonin 3 mg tablet 3 mg PO HS insomnia 01/20/24
povidone-iodine 10 % topical 1 applic topical QIDPRN PRN 01/20/24
solution (Betadine) Bilateral heal wound soilage
sertraline 25 mg tablet 25 mg PO DAILY 01/20/24
obsessive-compulsive diso
Review of Systems
Vital Signs
Temp Pulse Resp BP Pulse Ox
97.6 F 66 18 157/75 98
01/26/24 07:50 01/26/24 07:50 01/26/24 07:50 01/26/24 07:50 01/26/24 08:00
Physical Exam
Exam
General: Resting in bed, no acute distress. Confused at times, requires frequent verbal redirection to focus on conversation. At times, slow to answer questions.
Heart: Regular rate and rhythm.
Lungs: Nonlabored breathing.
GI: Normal bowel sounds present. Abdomen soft, nontender, nondistended. No rebound, rigidity, guarding.
Neuro: Awake, alert. Not fully oriented: knows he is in hospital but not which one, knows the year is 2023 but not the date.
Results
WBC 5.9 10^3/uL (4.8-10.8) 01/26/24 07:30
Hgb 8.9 g/dL (13.0-18.0) L 01/26/24 07:30
Hct 27.2 % (39.0-52.0) L 01/26/24 07:30
MCV 85.3 fL (80.0-94.0) 01/26/24 07:30
Plt Count 150 10^3/uL (130-400) 01/26/24 07:30
Sodium 140 mmol/L (135-145) 01/26/24 07:30
Potassium 3.7 mmol/L (3.5-5.1) 01/26/24 07:30
Chloride 115 mmol/L (98-107) H 01/26/24 07:30
Carbon Dioxide 21 mmol/L (22-30) L 01/26/24 07:30
BUN 21 mg/dl (9-20) H 01/26/24 07:30
Creatinine 1.2 mg/dL (0.7-1.3) 01/26/24 07:30
Calcium 7.8 mg/dl (8.4-10.2) L 01/26/24 07:30
Total Bilirubin 0.4 mg/dl (0.2-1.3) 01/22/24 06:32
AST 31 U/L (17-59) 01/22/24 06:32
ALT 25 U/L (0-50) 01/22/24 06:32
Alkaline Phosphatase 108 U/L (38-126) 01/22/24 06:32
Diagnostic Image Results:
Prior GI Procedures:
EGD:
unknown
Colonoscopy:
unknown, patient reports normal colonoscopy about 10 years ago
Assessment / Plan
-
78 year old male with PMH of dementia, Fe deficiency anemia, hypertension, who presented to ED from residential 01/21 for cellulitis of L leg. From chart review, his medical history includes dementia with lewy bodies with behavioral disturbance,
progressive super nuclear palsy, bipolar disorder, pressure wounds, Fe deficiency anemia, hypertension, CHF, CKD, recurrent UTI. GI consulted for OB+ stool in setting of anemia.
anemia, likely of chronic disease
- folate normal, b12 mildly elevated, iron studies indicative of anemia of chronic disease
- hgb on admission 8.5, unclear what his baseline is (ranged from 7.7-11.0 last admission)
- s/p 1u pRBC 01/25/24. Most recent hgb 8.9
Hemoccult positive stool
- No black or bloody stools documented this admission. No known history of hematochezia or melena recently.
- Since iron studies are indicative of ACD rather than Fe deficiency, lower suspicion of acute GI bleed or chronic occult GI bleed being the only cause of anemia.
GERD
cellulitis
sepsis
transaminitis- resolved
pressure wounds
metabolic encephalopathy
lewy body dementia
progressive supranuclear palsy
bipolar disorder
hypertension
chronic kidney disease
Recommendation:
- Will attempt to discuss medical history with his and obtain records from outside doctors, to see what workup if any he has had recently.
- Can consider EGD to evaluate gastritis, esophagitis, ulcers, H pylori; and/or colonoscopy to evaluate polyps, masses, or other sources of bleeding. However, will defer at this time given ongoing infection and current eliquis requirement.
- Continue PO diet as tolerated, continue protonix daily.
- Continue to trend H/H and transfuse PRN.
-
-
Thank you for consultation and allowing me to participate in the patient's care. Please call the information officer GI physician during the after hours with any questions or concerns.
--- NOTE | 2024-01-26 15:47 | W.PN.UPDATE ---
Update Note
Progress Note Update
I saw and evaluated the patient. I reviewed the resident�s note and agree with findings and plan as documented in the resident�s note.
Patient improving from my left leg cellulitis standpoint-afebrile and white count normalized. Await MRI of the left heel for further evaluation. ID following.
Patient has chronic anemia normocytic but is heme positive. It was severely low in this admission requiring blood transfusion. Consult GI.
JACINTA improving non oliguric .Alejandra per renal.
--- NOTE | 2024-01-26 17:05 | W.PN.ID1 ---
Date of Service
Date of Service: January 26, 2024
Today's Communication
await mri
Assessment / Plan
Nonpurulent cellulitis complicating a chronic wound on the L anterior santana
Unstageable pressure wounds on the L heel, R heel stage 1
Leukocytosis - resolved
H/o colonization with MRSA
Limited body dementia
Hx bipolar disorder
Progressive super nuclear palsy
Iron Deficiency Anemia
Essential hypertension
CHF - Unknown Type
Recommendations:
LE compression as tolerated, elevation as tolerated.
Multipodus boots for heel offloading.
Continue vancomycin and zosyn for present
Await MRI of the L heel to assess for underlying osteomyelitis. May need debridement of the area given noted malodor. Await podiatry input.
Chief Complaint
-: Other (chronic wounds with cellulitis)
Subjective / Review of Systems
afebrile
bp stable
without leukocytosis
cr stable
thrombocytopenia resolved
mri pending
Vital Signs / Physical Exam
Vital Signs
Vital Signs
Temp Pulse Resp BP Pulse Ox
98.5 F 76 18 142/72 97
01/26/24 15:30 01/26/24 15:30 01/26/24 15:30 01/26/24 15:30 01/26/24 15:30
Physical Exam
Constitutional: No Acute Distress
Cardiovascular: Regular Rate
Pulmonary: Symmetric and Rales
Gastrointestinal: Non Distended
Skin: Warm and Dry; Negative Rash or Jaundice
Objective Data
Lab Data
Lab Results
01/26/24 07:30
01/26/24 07:30
ESR 39 mm/hour (0-20) H 01/20/24 12:08
Estimated Creat Clear 47 ml/min 01/26/24 07:30
Lactic Acid Cancelled 01/20/24 20:08
Total Bilirubin 0.4 mg/dl (0.2-1.3) 01/22/24 06:32
AST 31 U/L (17-59) 01/22/24 06:32
ALT 25 U/L (0-50) 01/22/24 06:32
Alkaline Phosphatase 108 U/L (38-126) 01/22/24 06:32
C-Reactive Protein > 270.00 mg/L (0.0-10.00) H 01/20/24 12:08
Most recent labs reviewed.
Micro Results:
01/20/24 12:08 Urine Culture - Final
Urine No Significant Growth
[2024-01-26] MEDS: MELATONIN 3 MG PO (21:27)
[2024-01-26] MEDS: BENADRYL 25 MG PO (21:27)
[2024-01-26 23:44] VITALS: BP 160/80
[2024-01-27 05:31] VITALS: BMI 21.2
[2024-01-27] MEDS: ZOSYN 50 IV ×3 (05:58→17:37)
[2024-01-27 07:50] VITALS: BP 162/81
[2024-01-27 08:59] LABS: Hematocrit 26.7 % (39.0-52.0); Hemoglobin 8.7 g/dL (13.0-18.0); Mean Corp Hgb Conc. 32.6 g/dL (33.0-37.0); Mean Corpuscular Hgb 27.9 pg (27.0-31.0); Mean Corpuscular Volume 85.6 fL (80.0-94.0); Mean Platelet Volume 10.7 fL (7.4-10.4); Platelet Count 198 10^3/uL (130-400); Red Blood Cell Count 3.12 10^6/uL (4.70-6.10); Red Cell Dist. Width 17.5 % (11.5-14.5); White Blood Cell Count 6.6 10^3/uL (4.8-10.8)
[2024-01-27] MEDS: DAKIN'S SOLUTION 0.125% 1/4 STRENGTH 1 ML TOPICAL (09:12)
[2024-01-27] MEDS: SANTYL OINTMENT 1 APPLIC TOPICAL (09:12)
[2024-01-27] MEDS: IODOSORB 1 APPLIC TOPICAL (09:12)
[2024-01-27] MEDS: LIORESAL 2.5 MG PO ×2 (09:13→22:19)
[2024-01-27] MEDS: ELIQUIS 5 MG PO ×2 (09:13→21:00)
[2024-01-27] MEDS: ZOLOFT 25 MG PO (09:13)
[2024-01-27] MEDS: THERAGRAN 1 TABLET PO (09:13)
[2024-01-27] MEDS: SINEMET 25-100 1 TABLET PO ×3 (09:13→22:19)
[2024-01-27] MEDS: PEPCID 20 MG PO (09:13)
[2024-01-27] MEDS: VITAMIN C 500 MG PO (09:13)
[2024-01-27] MEDS: NSS (PRESERVATIVE FREE) 10 ML IV (09:14)
[2024-01-27] MEDS: PROTONIX IV 40 MG IV (09:14)
[2024-01-27] MEDS: VITAMIN D3 (cholecalciferol) 125 MCG PO (09:14)
[2024-01-27 09:15] LABS: Vancomycin Random 13.7 ug/ml
--- NOTE | 2024-01-27 09:49 | PHA.VAN.FU ---
Addendum entered and electronically signed by Remedios Vasquez [facility] 01/27/24 16:20:
BUN & SCR ordered per protocol
Original Note:
Vancomycin Assessment / Plan
- Assessment
Renal Function: No New Labs Today
WBC's are: WNL
In the past 24 hrs, patient has been: Afebrile
Concomitant Antimicrobials: piperacillin/tazobactam
- Assessment - Therapeutic Drug Monitoring
Random Level: 13.7 - drawn ~19H after previous dose of 750mg
- Dosing Plan
Dosing by Level: Re-dose today (Vanc 750mg)
May consider scheduling dosing in next few days
Will continue dose by level for now to trend level with improving renal function
- Monitoring Plan
Random Level: 01/27 0600
- Follow Up
Pharmacy will continue to follow.
Vancomycin Follow UP
- -
Patient Age: 78
Patient Sex: Male
Vancomycin Day #: 8
Indication: Skin And Soft Tissue
Requesting Provider: Dr. Guerrero / Tracy
Pertinent Antimicrobial Allergies:
NKDA
Height / Weight:
Height 5 ft 10 in
Actual Weight 67.086 kg
Pertinent Past Medical History: CKD (baseline SCR ~1.3)
- Vital Signs / Lab Results
Temp Pulse Resp BP Pulse Ox
97.4 F 69 18 162/81 99
01/27/24 07:50 01/27/24 07:50 01/27/24 07:50 01/27/24 07:50 01/27/24 07:50
Lab Results - Hematology
01/25/24 01/26/24 01/27/24
05:50 07:30 08:36
WBC 5.9 5.9 6.6
Lab Results - Chemistry
01/25/24 01/26/24
05:50 07:30
BUN 29 H 21 H
Creatinine 1.3 1.2
Estimated Creat Clear 44 47
Therapeutic Drug Monitoring
Random Vancomycin 13.7 ug/ml 01/27/24 08:36
--- NOTE | 2024-01-27 10:16 | W.PN.ID1 ---
Date of Service
Date of Service: January 27, 2024
Today's Communication
Continue vancomycin and zosyn pending MRI results
Await MRI of the L heel to assess for underlying osteomyelitis. May need debridement of the area given noted malodor. Await podiatry input.
Assessment / Plan
Nonpurulent cellulitis complicating a chronic wound on the L anterior santana
Unstageable pressure wounds on the L heel, R heel stage 1
Leukocytosis - resolved
H/o colonization with MRSA
Limited body dementia
Hx bipolar disorder
Progressive super nuclear palsy
Iron Deficiency Anemia
Essential hypertension
CHF - Unknown Type
Recommendations:
LE compression as tolerated, elevation as tolerated.
Multipodus boots for heel offloading.
Continue vancomycin and zosyn pending MRI results
Await MRI of the L heel to assess for underlying osteomyelitis. May need debridement of the area given noted malodor. Await podiatry input.
Chief Complaint
-: Other (chronic wounds with cellulitis)
Subjective / Review of Systems
afebrile
bp stable
no leukocytosis, plt normal
cr 1.2
CAMILLE: no significant stenosis
awaiting MRI
not responding appropriately to questions
Vital Signs / Physical Exam
Vital Signs
Vital Signs
Temp Pulse Resp BP Pulse Ox
97.4 F 69 18 162/81 99
01/27/24 07:50 01/27/24 07:50 01/27/24 07:50 01/27/24 07:50 01/27/24 07:50
Physical Exam
Constitutional: No Acute Distress
Cardiovascular: Regular Rate and S1/S2; Negative Murmur or Rub
Pulmonary: Clear and Symmetric; Negative Wheezes or Rales
Gastrointestinal: Soft, Non Tender, Non Distended and Normal Bowel Sounds
Skin: Warm and Dry; Negative Rash or Jaundice
Wound: Other (dressings clean, dry, intact)
Objective Data
Lab Data
Lab Results
01/27/24 08:36
01/26/24 07:30
ESR 39 mm/hour (0-20) H 01/20/24 12:08
Estimated Creat Clear 47 ml/min 01/26/24 07:30
Lactic Acid Cancelled 01/20/24 20:08
Total Bilirubin 0.4 mg/dl (0.2-1.3) 01/22/24 06:32
AST 31 U/L (17-59) 01/22/24 06:32
ALT 25 U/L (0-50) 01/22/24 06:32
Alkaline Phosphatase 108 U/L (38-126) 01/22/24 06:32
C-Reactive Protein > 270.00 mg/L (0.0-10.00) H 01/20/24 12:08
Most recent labs reviewed.
Micro Results:
01/20/24 12:08 Urine Culture - Final
Urine No Significant Growth
[2024-01-27] MEDS: VANCOCIN 150 IV (11:00)
--- NOTE | 2024-01-27 13:47 | W.PN.HOSP.TC ---
Today's Communication/Plan
-
CW ABX
Follow MRI left foot
Assessment / Plan
Assessment / Plan
Nonpurulent Left LE cellulitis
Leukocytosis (wbc 21 + left shift), reported measured fever 100.4 prior to admission, lactate 1.8, CRP/ESR elevated
Toxic metabolic encephalopathy: reported to be altered from baseline at half-way
x-ray of the tibia and fibula did not show any foreign bodies
- Improved clinical situation. Normalized white count. No further fevers.
- Continue broad spectrum coverage: Zosyn + Vancomycin.
-MRI of left foot today
-Podiatry on board
-Appreciate ID input
#Acute kidney injury on CKD (unclear stage, likely stage III):
Baseline creatinine is approximately 1.3
Creatinine on admission is 2.3, improved today 1.2
Prerenal vs urinary retention. Fena 0.4%
-Alejandra inserted for retention. Flomax added. Voiding trial failed.
-Appreciate renal input
#Transaminitis
Likely reactive
No abdominal complaints, negative abd physical exam
-Resolved
Anemia
hemoglobin on admission is 8.5--drop to 7.7 --> 7.3 with IV fluid administration --> 6.8
Folate normal, B12 mildly elevated. Iron studies nonspecific.
-Status post 1 unit PRBC, Hgb 8.9 today
-Heme positive stool
-GI input appreciated: patient's would like to hold off on invasive testing like endoscopy . prefer conservative approach
-Continue to monitor CBC
Wounds:
Stage I sacral pressure injury, Stage 1 pressure wound on left heel, unstageable on right heel
LE compression as tolerated, elevation as tolerated. Multipodus boots for heel offloading
-Appreciate ID input
-Appreciate Wound care
-appreciate podiatry
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 seen by neurology at that time
Family disputes these diagnoses, suggests that behavioral change is secondary to medication effect
Speech therapy evaluation: IDD6 (soft, bite sized) recommended. Diet resumed
-Currently on Sinemet. Continue
-Appreciate psych input. -Avoid first generation antipsychotics for risk of extrapyramidal symptoms. Avoid benzodiazepines. Will consider Seroquel for behavioral disturbance if necessary
History of bipolar 1, Obsessive compulsive disorder
Perserveration noted on physical exam, anxious, pressured speech
Remote diagnosis of Bipolar disorder with long history of lithium use. Discontinued [place] some months ago. Patient's family noted improvement in behavior after [place] stopped
-Appreciate psych input: Preserverative symptoms may be signs of Lewy body dementia. Patient on sertraline. Continue.
History of congestive heart failure unknown type
Lung exam normal
-Will consider echo on this visit
Patient on chronic anticoagulation therapy with Eliquis--for presumed paroxysmal atrial fibrillation although cannot verify this
Essential hypertension--Continue BP meds
DVT prophylaxis: Eliquis
CODE STATUS--appears to be full code
-
Anticipated Discharge: 24 - 48 hours
Subjective/Interval History
-
Date of Service: January 27, 2024
Await MRI of the left foot.
No major events overnight.
at bedside who thick he probably didnt sleep well last night.
Objective Data
-
Labs:
Laboratory Results
01/27/24
08:36
WBC 6.6
Hgb 8.7 L
Hct 26.7 L
Plt Count 198 D
Vital Signs:
Vital Signs
Temp Pulse Resp BP Pulse Ox
97.4 F 69 18 162/81 99
01/27/24 07:50 01/27/24 07:50 01/27/24 07:50 01/27/24 07:50 01/27/24 07:50
I&O
01/26/24 01/27/24 01/28/24
06:59 06:59 06:59
Intake Total 3080 / 3080 1300 / 1300
Output Total 2900 / 2900 4275 / 4275
Balance 180 / 180 -2975 / -2975
Review of Systems
-
Unable to obtain full review of systems at this time due to: Other (heard of hearing)
Respiratory: Denies Trouble Breathing
Cardiac: Denies Chest Pain
Abdomen/GI: Denies Abdominal Pain, Nausea or Vomiting
Neuro: Denies Headache
Physical Exam
-
General: No Apparent Distress
HEENT: Moist Mucous Membranes
Respiratory: Non Labored Respirations; Negative Accessory Resp Muscle Use
Cardiac: Regular Rhythm and S1/S2
GI: Soft
Musculoskeletal: Edema, Right Upper Extrem and Edema, Left Upper Extrem (much improved BL)
Skin: Other (both legs in dressing)
Neuro: Awake, Alert and Oriented (self and person)
Psych: Calm
Data Reviewed
-
Labs: Labs Reviewed by me
--- NOTE | 2024-01-27 15:19 | PN.CDI ---
CDI
- -
CDI:
Physician Documentation Request
Admit Date: 01/20/24 15:39
Dear Doctor Britton,
Please review the following and provide your response in the progress notes.
Clinical Indicators:
- 01/26 PN 'Stage 1 pressure wound on left heel'
- 01/26 ID 'Unstageable pressure wounds on the L heel'
- 01/20 Wound note 'L medial heel unstageable suspect stage 4 pressure injury with loosening black eschar'
- 01/24 Podiatry 'chronic unstageable left heel wound...suggest adding Santyl ointment'
- 'chronic pressure unstageable wounds both heels'
In an attempt to clarify potentially conflicting documentation, please clarify the left heel pressure ulcer stage:
Unstageable left heel pressure injury
Other
Use of terms such as suspected, likely, concern for, or probable (associated with a specific diagnosis that is being evaluated, monitored, or treated as if it exists) are acceptable and can be coded in the inpatient setting, when documented at the
time of discharge.
Thank you,
Iron Mccabe RN
CDI Specialist
Please use your independent medical judgment in providing your response.
*Source: National Pressure Ulcer Advisory Panel (NPUAP)
[2024-01-27 15:20] VITALS: BP 156/83
--- NOTE | 2024-01-27 16:02 | CM ---
Reviewed the chart notes. Per note, waiting on MRI of left foot. CM continues to be available to patient/family and is monitoring medical plan for needs at discharge.
Plan: Most likely back to [facility] prior to transitioning to home per spouse's wishes.
[2024-01-27] MEDS: ATIVAN 0.5 MG IV (16:44)
--- NOTE | 2024-01-27 17:19 | PTCARENOTE ---
Pt. given IV prn Ativan before going down for MRI. MRI called unit. Patient coming back up. They could not do MRI due to patient not holding still. MD/ Resident made aware.
[2024-01-27] MEDS: MELATONIN 3 MG PO (22:18)
[2024-01-27] MEDS: BENADRYL 25 MG PO (22:19)
[2024-01-27 23:15] VITALS: BP 151/83
[2024-01-28] MEDS: ZOSYN 50 IV ×4 (00:08→17:55)
[2024-01-28 06:06] VITALS: BMI 20.2
--- NOTE | 2024-01-28 07:33 | W.PN.HOSP.TC ---
Today's Communication/Plan
-
Left foot MRI, IV antibiotics
Assessment / Plan
Assessment / Plan
sepsis secondary to Nonpurulent Left LE cellulitis
Leukocytosis (wbc 21 + left shift), reported measured fever 100.4 prior to admission, lactate 1.8, CRP/ESR elevated
Toxic metabolic encephalopathy: [facility]
x-ray of the tibia and fibula did not show any foreign bodies
- Improved clinical situation. Normalized white count. No further fevers.
-Continue broad spectrum coverage: Zosyn + Vancomycin.
-To do MRI of left foot to assess for underlying osteomyelitis.
-Appreciate podiatry, consult podiatric surgery
-Appreciate ID input
#Acute kidney injury on CKD (unclear stage, likely stage III):
Baseline creatinine is approximately 1.3
Creatinine on admission is 2.3,
Prerenal vs urinary retention. Fena 0.4%
-Resolved. at baseline, 1.2
-Mcgregor inserted for retention. Flomax added. Voiding trial failed. mcgregor reinserted
-Appreciate renal input
#Transaminitis
Likely reactive
No abdominal complaints, negative abd physical exam
-Resolved
Anemia
hemoglobin on admission is 8.5--drop to 7.7 --> 7.3 with IV fluid administration --> 6.8
Folate normal, B12 mildly elevated. Iron studies nonspecific.
-Status post 1 unit PRBC, Hgb stabilized at 8.9
-Heme positive stool
-GI input appreciated: patient's would like to hold off on invasive testing like endoscopy . prefer conservative approach
-Continue to monitor CBC
Wounds:
Stage I sacral pressure injury, Stage 1 pressure wound on left heel, unstageable on right heel
LE compression as tolerated, elevation as tolerated. Multipodus boots for heel offloading
-Appreciate ID input
-Appreciate Wound care
-appreciate podiatry/podiatric surgery
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 seen by neurology at that time
Family disputes these diagnoses, suggests that behavioral change is secondary to medication effect
Speech therapy evaluation: IDD6 (soft, bite sized) recommended. Diet resumed
-Currently on Sinemet. Continue
-Appreciate psych input. -Avoid first generation antipsychotics for risk of extrapyramidal symptoms. Avoid benzodiazepines. Will consider Seroquel for behavioral disturbance if necessary
History of bipolar 1, Obsessive compulsive disorder
Perserveration noted on physical exam, anxious, pressured speech
Remote diagnosis of Bipolar disorder with long history of lithium use. Discontinued [place] some months ago. Patient's family noted improvement in behavior after [place] stopped
-Appreciate psych input: Preserverative symptoms may be signs of Lewy body dementia. Patient on sertraline. Continue.
History of congestive heart failure unknown type
Lung exam normal
-Will consider echo on this visit
Patient on chronic anticoagulation therapy with Eliquis--for presumed paroxysmal atrial fibrillation although cannot verify this
Essential hypertension--Continue BP meds
DVT prophylaxis: Eliquis
CODE STATUS--full code
Anticipated Discharge: > 48 hours
Subjective/Interval History
-
Date of Service: January 28, 2024
Objective Data
-
Labs:
Laboratory Results
01/28/24
06:35
BUN Pending
Creatinine Pending
Vital Signs:
Vital Signs
Temp Pulse Resp BP Pulse Ox
97.3 F 73 18 151/83 99
01/27/24 23:15 01/27/24 23:15 01/27/24 23:15 01/27/24 23:15 01/27/24 23:15
I&O
01/27/24 01/28/24 01/29/24
06:59 06:59 06:59
Intake Total 1300 / 1300 1370 / 1370
Output Total 4275 / 4275 3400 / 3400
Balance -2975 / -2975 -2029 /
Review of Systems
-
History Source: Patient
Respiratory: Denies Cough or Trouble Breathing
Cardiac: Denies Chest Pain
Abdomen/GI: Denies Abdominal Pain
Neuro: Denies Headache
Physical Exam
-
HEENT: Normocephalic and Atraumatic
Respiratory: Clear to Auscultation and Non Labored Respirations; Negative Wheezes, Rales, Rhonchi or Crackles
Cardiac: Regular Rhythm and S1/S2; Negative Murmur or Rub
GI: Soft, Nontender, Nondistended and Normal Bowel Sounds
Genito-urinary: Mcgregor and Other (No suprapubic tenderness/fullness)
Musculoskeletal: No Clubbing, No Cyanosis, Edema, Right Upper Extrem and Other
Skin: Warm, Dry and Other (mild erythema of left leg. Dressing, wrap and boot intact)
Neuro: Awake, Alert and Oriented
Psych: Calm
[2024-01-28 07:40] VITALS: BP 167/80
[2024-01-28 07:43] LABS: Vancomycin Random 14.5 ug/ml
[2024-01-28 07:57] LABS: Blood Urea Nitrogen 14 mg/dl (9-20); Estimated Creatinine Clearance 45 ml/min
[2024-01-28] MEDS: SINEMET 25-100 1 TABLET PO ×3 (09:25→21:00)
[2024-01-28] MEDS: VITAMIN C 500 MG PO (09:25)
[2024-01-28] MEDS: PEPCID 20 MG PO (09:25)
[2024-01-28] MEDS: LIORESAL 2.5 MG PO ×2 (09:26→21:00)
[2024-01-28] MEDS: ZOLOFT 25 MG PO (09:26)
[2024-01-28] MEDS: THERAGRAN 1 TABLET PO (09:26)
[2024-01-28] MEDS: ELIQUIS 5 MG PO ×2 (09:26→21:00)
[2024-01-28] MEDS: VITAMIN D3 (cholecalciferol) 125 MCG PO (09:26)
[2024-01-28] MEDS: NSS (PRESERVATIVE FREE) 10 ML IV (09:27)
[2024-01-28] MEDS: DAKIN'S SOLUTION 0.125% 1/4 STRENGTH 473 ML TOPICAL (09:28)
[2024-01-28] MEDS: FLOMAX 0.4 MG PO (09:28)
[2024-01-28] MEDS: PROTONIX IV 40 MG IV (09:28)
[2024-01-28] MEDS: IODOSORB 1 APPLIC TOPICAL (09:30)
[2024-01-28] MEDS: SANTYL OINTMENT 1 APPLIC TOPICAL (09:30)
--- NOTE | 2024-01-28 09:52 | PHA.VAN.FU ---
Vancomycin Assessment / Plan
- Assessment
Renal Function: Stable (1.2>1.2)
WBC's are: Trending Up (5.9>6.6)
In the past 24 hrs, patient has been: Afebrile
Concomitant Antimicrobials: Piperacilliin-tazobactam
- Assessment - Therapeutic Drug Monitoring
Random Level: 14.5 drawn ~17.5 hrs after vancomycin 750mg given
- Dosing Plan
Adjust Regimen to: Scheduled dosing Vancomycin 750mg IV daily
Dosing Comments: Patient's renal function has remained stable on vancomycin 750mg IV daily
- Monitoring Plan
No level(s) ordered at this time: Will order levels according to vancomycin dosing protocol
Level(s) appropriate: Repeat sooner for changes in renal function or clinical status
- Follow Up
Pharmacy will continue to follow.
Vancomycin Follow UP
- -
Patient Age: 78
Patient Sex: Male
Vancomycin Day #: 9
Indication: Skin And Soft Tissue
Requesting Provider: Dr. Guerrero / Tracy
Pertinent Antimicrobial Allergies:
NKDA
Height / Weight:
Height 5 ft 10 in
Actual Weight 63.775 kg
IBW in k
Pertinent Past Medical History: CKD (baseline SCR ~1.3)
- Vital Signs / Lab Results
Temp Pulse Resp BP Pulse Ox
98.3 F 74 18 167/80 98
01/28/24 07:40 01/28/24 07:40 01/28/24 07:40 01/28/24 07:40 01/28/24 07:40
Lab Results - Hematology
01/26/24 01/27/24
07:30 08:36
WBC 5.9 6.6
Lab Results - Chemistry
01/26/24 01/28/24
07:30 06:35
BUN 21 H 14
Creatinine 1.2 1.2
Estimated Creat Clear 47 45
Therapeutic Drug Monitoring
Random Vancomycin 14.5 ug/ml 01/28/24 06:35
[2024-01-28] MEDS: VANCOCIN 150 IV (11:36)
--- NOTE | 2024-01-28 14:23 | CM ---
CM following re: discharge planning.
Reviewed pt's chart, met with pt. Pt's spouse and pt's daughter at bedside.
Pt's spouse and pt's daughter requested pt returns back to [facility] to continue on skilled services with a further plan to bring the pt home.
A referral to [facility] made, spoke to liadelon Wild and she confirmed that pt will be accepted when medically stable.
D/C plan: return back to [facility] to continue on skilled services.
CM will follow with discharge plan updates as hospitalization progresses
--- NOTE | 2024-01-28 14:58 | W.PN.UPDATE ---
Update Note
Progress Note Update
I saw and evaluated the patient. I reviewed the resident�s note and agree with findings and plan as documented in the resident�s note.
Could not tolerate the MRI with the Ativan support.
Patient would require MRI with anesthesia support.
Not septic or toxic from left leg cellulitis. Continue with antibiotics per ID.
Consult surgical outpatient scheduler to see if there is any role for debridement.
[2024-01-28 15:20] VITALS: BP 144/78
--- NOTE | 2024-01-28 20:02 | CON.MD ---
Consultation - Medical
-
CC/HPI:
Podiatry consulted for heel wounds.
Patient is a 78-year-old male from local retirement who was admitted for cellulitis of his left leg and change in metal status. He failed oral antibiotic therapy. He also has bilateral heel wounds. I cannot not obtain a history as patient is
not oriented to time or place. Patient has a history of dementia with metabolic encephalopathy, & bipolar disorder.
He has received IV vancomycin and IV Zosyn.
Past Medical History
Past Medical History: Reports Other
Additional Past Medical History:
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
Bipolar Disorder
Progressive super nuclear palsy
Iron Deficiency Anemia
Essential hypertension
CHF - Unknown Type
Pressure injuries with unstageable heel ulcers in the past
Chronic kidney disease stage not listed
Past Surgical History: Reports Other
Social History
Unable to obtain full social history at this time due to: Dementia
Family History
Allergies / Home Medications
PE: Bilateral legs with roman wraps in place. There is erythema of the left leg on the anterior santana, no fluctuant, chronic stable wound. The left heel has a medial wound has a friable eschar centrally and the periphery is granular. It does not
probe to bone. No tunneling or undermining. The right heel is unstageable. The right heel has two stable preulcerative areas, no evidence of deep infection. The right dorsal 5th toe has a stable abrasion present.
Xrays - no evidence of osteo
arterial doppler elvia left 1.14 right .72
Assessment:
left heel wound - unstable central eschar
Right heel pre-ulcerative stage 1 ulcers
Left leg cellulitis with chronic wound
Plan:
no plan for debridement
Continue Santyl ointment, alginate and foam bordered gauze.
Continue to offload in multipodus boots
Le compression
IV Vanco/Zosyn per ID
[2024-01-28] MEDS: MELATONIN 3 MG PO (21:00)
[2024-01-28] MEDS: BENADRYL 25 MG PO (21:00)
[2024-01-28 23:37] VITALS: BP 157/77
[2024-01-29] MEDS: ZOSYN 50 IV ×4 (00:07→17:48)
[2024-01-29 06:00] VITALS: BMI 19.8
[2024-01-29] MEDS: VANCOCIN 150 IV (06:37)
[2024-01-29 07:40] VITALS: BP 151/75
[2024-01-29 07:54] LABS: Blood Urea Nitrogen 13 mg/dl (9-20); Calcium 7.9 mg/dl (8.4-10.2); Carbon Dioxide 24 mmol/L (22-30); Chloride 111 mmol/L (98-107); Estimated Creatinine Clearance 44 ml/min; Glucose 73 mg/dl (70-99); Potassium 3.7 mmol/L (3.5-5.1); Sodium 137 mmol/L (135-145); eGFR > 60.00
--- NOTE | 2024-01-29 08:15 | PHA.VAN.FU ---
Vancomycin Assessment / Plan
- Assessment
Renal Function: Stable
WBC's are: WNL
In the past 24 hrs, patient has been: Afebrile
Concomitant Antimicrobials: piperacillin/tazobactam
- Dosing Plan
Continue: vancomycin 750 mg q24h
- Monitoring Plan
Level(s) appropriate: Recheck trough at minimum of weekly intervals, Repeat sooner for changes in renal function or clinical status
awaiting MRI to assess underlying osteomyelitis
- Follow Up
Pharmacy will continue to follow.
Vancomycin Follow UP
- -
Patient Age: 78
Patient Sex: Male
Vancomycin Day #: 10
Indication: Skin And Soft Tissue
Requesting Provider: Dr. Guerrero / Tracy
Pertinent Antimicrobial Allergies:
NKDA
Height / Weight:
Height 5 ft 10 in
Actual Weight 62.709 kg
IBW in k
Pertinent Past Medical History: CKD (baseline SCR ~1.3)
- Vital Signs / Lab Results
Temp Pulse Resp BP Pulse Ox
97.1 F 65 18 151/75 97
01/29/24 07:40 01/29/24 07:40 01/29/24 07:40 01/29/24 07:40 01/29/24 07:40
Lab Results - Hematology
01/27/24
08:36
WBC 6.6
Lab Results - Chemistry
01/28/24 01/29/24
06:35 06:36
BUN 14 13
Creatinine 1.2 1.2
Estimated Creat Clear 45 44
Therapeutic Drug Monitoring
Random Vancomycin 14.5 ug/ml 01/28/24 06:35
[2024-01-29] MEDS: SANTYL OINTMENT 1 APPLIC TOPICAL (09:37)
[2024-01-29] MEDS: THERAGRAN 1 TABLET PO (09:37)
[2024-01-29] MEDS: VITAMIN C 500 MG PO (09:37)
[2024-01-29] MEDS: FLOMAX 0.4 MG PO (09:38)
[2024-01-29] MEDS: ZOLOFT 25 MG PO (09:38)
[2024-01-29] MEDS: SINEMET 25-100 1 TABLET PO ×3 (09:38→22:18)
[2024-01-29] MEDS: ELIQUIS 5 MG PO ×2 (09:38→22:19)
[2024-01-29] MEDS: VITAMIN D3 (cholecalciferol) 125 MCG PO (09:38)
[2024-01-29] MEDS: LIORESAL 2.5 MG PO ×2 (09:38→22:18)
[2024-01-29] MEDS: PEPCID 20 MG PO (09:38)
[2024-01-29] MEDS: IODOSORB 1 APPLIC TOPICAL (09:39)
[2024-01-29] MEDS: DAKIN'S SOLUTION 0.125% 1/4 STRENGTH 473 ML TOPICAL (09:39)
--- NOTE | 2024-01-29 11:21 | W.PN.HOSP.TC ---
Addendum entered and electronically signed by Shahzad Jarquin MD 01/29/24 13:12:
I saw and evaluated the patient. I reviewed the resident�s note and agree with findings and plan as documented in the resident�s note.
No events from overnight.
afebrile and hemodynamically stable.
Surgical supervisor diagnostic feels no current need for intervention of I&D. Unstable eschar.
Await MRI of the foot-needs anesthesia help.
Continue with current antibiotics per ID.
Original Note:
Today's Communication/Plan
-
MRI scheduled for Wednesday-- Continue antibiotics
Assessment / Plan
Assessment / Plan
sepsis secondary to Nonpurulent Left LE cellulitis
Leukocytosis (wbc 21 + left shift), reported measured fever 100.4 prior to admission, lactate 1.8, CRP/ESR elevated
Toxic metabolic encephalopathy: reported to be altered from baseline at [facility]
x-ray of the tibia and fibula did not show any foreign bodies
- Improved clinical situation. Normalized white count. No further fevers.
-Continue broad spectrum coverage: Zosyn + Vancomycin.
-To do MRI of left foot to assess for underlying osteomyelitis probably on Wednesday.
-Appreciate podiatry
-Appreciate ID input
#Acute kidney injury on CKD (unclear stage, likely stage III):
Baseline creatinine is approximately 1.3
Creatinine on admission is 2.3,
Prerenal vs urinary retention. Fena 0.4%
-Resolved. at baseline, 1.2
-Mcgregor inserted for retention. Flomax added. Voiding trial failed. mcgregor reinserted
-Appreciate renal input
#Transaminitis
Likely reactive
No abdominal complaints, negative abd physical exam
-Resolved
Anemia
hemoglobin on admission is 8.5--drop to 7.7 --> 7.3 with IV fluid administration --> 6.8
Folate normal, B12 mildly elevated. Iron studies nonspecific.
-Status post 1 unit PRBC, Hgb stabilized at 8.7
-Heme positive stool
-GI input appreciated: patient's would like to hold off on invasive testing like endoscopy . prefer conservative approach
-Continue to monitor CBC
Wounds:
Stage I sacral pressure injury, Stage 1 pressure wound on left heel, unstageable on right heel
LE compression as tolerated, elevation as tolerated. Multipodus boots for heel offloading
-Appreciate ID input
-Appreciate Wound care
-appreciate podiatry/podiatric surgery
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 seen by neurology at that time
Family disputes these diagnoses, suggests that behavioral change is secondary to medication effect
Speech therapy evaluation: IDD6 (soft, bite sized) recommended. Diet resumed
-Currently on Sinemet. Continue
-Appreciate psych input. Avoid first generation antipsychotics for risk of extrapyramidal symptoms. Avoid benzodiazepines. Will consider Seroquel for behavioral disturbance if necessary
History of bipolar 1, Obsessive compulsive disorder
Perseveration noted on physical exam, anxious, pressured speech
Remote diagnosis of Bipolar disorder with long history of lithium use. Discontinued [place] some months ago. Patient's family noted improvement in behavior after [place] stopped
-Appreciate psych input: Preservative symptoms may be signs of Lewy body dementia. Patient on sertraline. Continue.
History of congestive heart failure unknown type
Lung exam normal
-Will consider echo on this visit
Patient on chronic anticoagulation therapy with Eliquis--for presumed paroxysmal atrial fibrillation although cannot verify this
Essential hypertension--Continue BP meds
DVT prophylaxis: Eliquis
CODE STATUS--full code
Anticipated Discharge: > 48 hours
Subjective/Interval History
-
Date of Service: January 29, 2024
Objective Data
-
Labs:
Laboratory Results
01/29/24
06:36
Sodium 137
Potassium 3.7
Chloride 111 H
Carbon Dioxide 24
BUN 13
Creatinine 1.2
Glucose 73
Calcium 7.9 L
Vital Signs:
Vital Signs
Temp Pulse Resp BP Pulse Ox
97.1 F 65 18 151/75 97
01/29/24 07:40 01/29/24 07:40 01/29/24 07:40 01/29/24 07:40 01/29/24 07:40
I&O
01/28/24 01/29/24 01/30/24
06:59 06:59 06:59
Intake Total 1370 / 1370 910 / 910
Output Total 3400 / 3400 3050 / 3050
Balance -2030 / -2029 -2139 / -2139
Review of Systems
-
History Source: Patient
All other systems: Reviewed and negative
Physical Exam
-
General: Well Developed and No Apparent Distress
Respiratory: Clear to Auscultation; Negative Rales, Rhonchi or Crackles
Cardiac: Regular Rhythm and S1/S2
GI: Nontender, Nondistended and Normal Bowel Sounds
Musculoskeletal: Other (Bilateral legs with roman wraps in place. Erythema of the left leg on the anterior santana)
Neuro: Awake, Alert and Oriented
--- NOTE | 2024-01-29 12:10 | W.PN.UPDATE ---
Update Note
Progress Note Update
chart reviewed
note not plans for debridement
Awaiting MRI to maker further plans which is planned for wednesday, will reassess at that time
[2024-01-29 15:35] VITALS: BP 154/70
[2024-01-29 21:21] LABS: Glucose - Point of Care 178 mg/dl (70-99)
[2024-01-29] MEDS: MELATONIN 3 MG PO (22:19)
[2024-01-29] MEDS: BENADRYL 25 MG PO (22:19)
[2024-01-29 23:21] VITALS: BP 147/78
[2024-01-30] MEDS: ZOSYN 50 IV ×4 (00:47→17:00)
[2024-01-30 06:00] VITALS: BMI 19.6
[2024-01-30] MEDS: VANCOCIN 150 IV (06:29)
[2024-01-30 07:25] VITALS: BP 159/81
[2024-01-30] MEDS: FLOMAX 0.4 MG PO (09:47)
[2024-01-30] MEDS: THERAGRAN 1 TABLET PO (09:47)
[2024-01-30] MEDS: ZOLOFT 25 MG PO (09:47)
[2024-01-30] MEDS: PEPCID 20 MG PO (09:47)
[2024-01-30] MEDS: SINEMET 25-100 1 TABLET PO ×3 (09:47→21:30)
[2024-01-30] MEDS: VITAMIN C 500 MG PO (09:47)
[2024-01-30] MEDS: ELIQUIS 5 MG PO ×2 (09:47→21:28)
[2024-01-30] MEDS: VITAMIN D3 (cholecalciferol) 125 MCG PO (09:47)
[2024-01-30] MEDS: LIORESAL 2.5 MG PO ×2 (09:48→21:28)
[2024-01-30] MEDS: SANTYL OINTMENT 1 APPLIC TOPICAL (09:49)
--- NOTE | 2024-01-30 09:51 | W.PN.HOSP.TC ---
Today's Communication/Plan
-
Waiting for MRI to be done tomorrow--continue to follow clinically--continue current antibiotics
Assessment / Plan
Assessment / Plan
sepsis secondary to Nonpurulent Left LE cellulitis
Leukocytosis (wbc 21 + left shift), reported measured fever 100.4 prior to admission, lactate 1.8, CRP/ESR elevated
Toxic metabolic encephalopathy: reported to be altered from baseline at alf
x-ray of the tibia and fibula did not show any foreign bodies
- Improved clinical situation. Normalized white count. No further fevers.
-Continue broad spectrum coverage: Zosyn + Vancomycin.
-To do MRI of left foot to assess for underlying osteomyelitis probably on Wednesday.
-Appreciate podiatry
-Appreciate ID input
#Acute kidney injury on CKD (unclear stage, likely stage III):
Baseline creatinine is approximately 1.3
Creatinine on admission is 2.3,
Prerenal vs urinary retention. Fena 0.4%
-Resolved. at baseline, 1.2
-Mcgregor inserted for retention. Flomax added. Voiding trial failed. mcgregor reinserted
-Appreciate renal input
#Transaminitis
Likely reactive
No abdominal complaints, negative abd physical exam
-Resolved
Anemia
hemoglobin on admission is 8.5--drop to 7.7 --> 7.3 with IV fluid administration --> 6.8
Folate normal, B12 mildly elevated. Iron studies nonspecific.
-Status post 1 unit PRBC, Hgb stabilized at 8.7
-Heme positive stool
-GI input appreciated: patient's would like to hold off on invasive testing like endoscopy . prefer conservative approach
-Continue to monitor CBC
Wounds:
Stage I sacral pressure injury, Stage 1 pressure wound on left heel, unstageable on right heel
LE compression as tolerated, elevation as tolerated. Multipodus boots for heel offloading
-Appreciate ID input
-Appreciate Wound care
-appreciate podiatry/podiatric surgery
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 seen by neurology at that time
Family disputes these diagnoses, suggests that behavioral change is secondary to medication effect
Speech therapy evaluation: IDD6 (soft, bite sized) recommended. Diet resumed
-Currently on Sinemet. Continue
-Appreciate psych input. Avoid first generation antipsychotics for risk of extrapyramidal symptoms. Avoid benzodiazepines. Will consider Seroquel for behavioral disturbance if necessary
History of bipolar 1, Obsessive compulsive disorder
Perseveration noted on physical exam, anxious, pressured speech
Remote diagnosis of Bipolar disorder with long history of lithium use. Discontinued [place] some months ago. Patient's family noted improvement in behavior after [place] stopped
-Appreciate psych input: Preservative symptoms may be signs of Lewy body dementia. Patient on sertraline. Continue.
History of congestive heart failure unknown type
Lung exam normal
-Will consider echo on this visit
Patient on chronic anticoagulation therapy with Eliquis--for presumed paroxysmal atrial fibrillation although cannot verify this
Essential hypertension--Continue BP meds
DVT prophylaxis: Eliquis
CODE STATUS--full code
Anticipated Discharge: 24 - 48 hours
Subjective/Interval History
-
Date of Service: January 30, 2024
Patient has been able to eat. Did not have any fevers overnight.
Objective Data
-
Vital Signs:
Vital Signs
Temp Pulse Resp BP Pulse Ox
98.0 F 70 18 159/81 97
01/30/24 07:25 01/30/24 07:25 01/30/24 07:25 01/30/24 07:25 01/30/24 07:25
I&O
01/29/24 01/30/24 01/31/24
06:59 06:59 06:59
Intake Total 910 / 910 1240 / 1240
Output Total 3050 / 3050 3200 / 3200
Balance -2139 / -1959 /
Review of Systems
-
History Source: Patient and Family
All other systems: Reviewed and negative
Physical Exam
-
General: Comfortable
Respiratory: Clear to Auscultation and Non Labored Respirations
Cardiac: Regular Rhythm and S1/S2
GI: Nontender, Nondistended and Normal Bowel Sounds
Musculoskeletal: Other (Bilateral legs with roman wraps in place. Erythema of the left leg on the anterior santana)
Neuro: Awake, Alert and Oriented
Psych: Agitated (Slightly agitated)
[2024-01-30] MEDS: DAKIN'S SOLUTION 0.125% 1/4 STRENGTH 473 ML TOPICAL (09:55)
[2024-01-30] MEDS: IODOSORB 1 APPLIC TOPICAL (09:56)
--- NOTE | 2024-01-30 10:36 | W.PN.UPDATE ---
Update Note
Progress Note Update
I saw and evaluated the patient. I reviewed the resident�s note and agree with findings and plan as documented in the resident�s note.
No overnight events.
Afebrile and hemodynamically stable. Not hypoxic.
Chest clear.
Abdomen benign.
Continue with antibiotics. Hopefully can get MRI of the left foot with anesthesia support tomorrow.
ID following.
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
--- NOTE | 2024-01-30 11:02 | PHA.VAN.FU ---
Vancomycin Assessment / Plan
- Assessment
Renal Function: No New Labs Today
In the past 24 hrs, patient has been: Afebrile
Concomitant Antimicrobials: piperacillin/tazo
- Dosing Plan
Continue: vancomycin 750 mg q24h ( pt has been on 750 mg daily since 01/22)
- Monitoring Plan
Peak Level: 01/30 830
Trough Level: 01/31 530
- Follow Up
Pharmacy will continue to follow.
Vancomycin Follow UP
- -
Patient Age: 78
Patient Sex: Male
Vancomycin Day #: 11
Indication: Skin And Soft Tissue
Requesting Provider: Dr. Guerrero / Tracy
Pertinent Antimicrobial Allergies:
NKDA
Height / Weight:
Height 5 ft 10 in
Actual Weight 61.87 kg
IBW in k
Pertinent Past Medical History: CKD (baseline SCR ~1.3)
- Vital Signs / Lab Results
Temp Pulse Resp BP Pulse Ox
98.0 F 70 18 159/81 97
01/30/24 07:25 01/30/24 07:25 01/30/24 07:25 01/30/24 07:25 01/30/24 07:25
Lab Results - Chemistry
01/28/24 01/29/24
06:35 06:36
BUN 14 13
Creatinine 1.2 1.2
Estimated Creat Clear 45 44
Therapeutic Drug Monitoring
Random Vancomycin 14.5 ug/ml 01/28/24 06:35
[2024-01-30 15:25] VITALS: BP 151/74
[2024-01-30] MEDS: BENADRYL 25 MG PO (21:29)
[2024-01-30] MEDS: MELATONIN 3 MG PO (21:29)
[2024-01-30 23:27] VITALS: BP 133/78
[2024-01-31] MEDS: ZOSYN 50 IV ×3 (00:13→14:26)
[2024-01-31 05:09] VITALS: BMI 19.4
[2024-01-31 05:11] VITALS: BMI 19.4
[2024-01-31] MEDS: VANCOCIN 150 IV (06:25)
[2024-01-31 07:30] VITALS: BP 149/81
[2024-01-31 09:51] LABS: Hematocrit 27.3 % (39.0-52.0); Mean Corpuscular Hgb 28.5 pg (27.0-31.0); Mean Corpuscular Volume 86.4 fL (80.0-94.0); Mean Platelet Volume 9.7 fL (7.4-10.4); Platelet Count 253 10^3/uL (130-400); Red Blood Cell Count 3.16 10^6/uL (4.70-6.10); Red Cell Dist. Width 17.3 % (11.5-14.5); White Blood Cell Count 7.3 10^3/uL (4.8-10.8)
[2024-01-31 10:09] LABS: Blood Urea Nitrogen 13 mg/dl (9-20); Calcium 8.3 mg/dl (8.4-10.2); Carbon Dioxide 27 mmol/L (22-30); Chloride 108 mmol/L (98-107); Estimated Creatinine Clearance 43 ml/min; Glucose 84 mg/dl (70-99); Potassium 3.7 mmol/L (3.5-5.1); Sodium 138 mmol/L (135-145); eGFR > 60.00
[2024-01-31 10:12] LABS: Vancomycin Peak 22.7 ug/ml (18-26)
--- NOTE | 2024-01-31 11:01 | PHA.VAN.FU ---
Addendum entered and electronically signed by Remedios Vasquez [facility] 01/31/24 16:03:
BUN & SCR ordered per protocol
Original Note:
Vancomycin Assessment / Plan
- Assessment
Renal Function: Stable
WBC's are: WNL
In the past 24 hrs, patient has been: Afebrile
Concomitant Antimicrobials: piperacillin/tazobactam
- Dosing Plan
Continue: Vanc 750mg Q24H
- Monitoring Plan
Peak Level: peak = 22.7 - will assess with trough in AM
Trough Level: 01/31 05:30
Monitoring Comments: levels drawn after 4th maintenance dose
- Follow Up
Pharmacy will continue to follow.
Vancomycin Follow UP
- -
Patient Age: 78
Patient Sex: Male
Vancomycin Day #: 12
Indication: Skin And Soft Tissue
Requesting Provider: Dr. Guerrero / Tracy
Pertinent Antimicrobial Allergies:
NKDA
Height / Weight:
Height 5 ft 10 in
Actual Weight 61.19 kg
IBW in k
Pertinent Past Medical History: CKD (baseline SCR ~1.3), BMI ~19
- Vital Signs / Lab Results
Temp Pulse Resp BP Pulse Ox
97.7 F 70 16 149/81 96
01/31/24 07:30 01/31/24 07:30 01/31/24 07:30 01/31/24 07:30 01/31/24 07:30
Lab Results - Hematology
01/31/24
09:32
WBC 7.3
Lab Results - Chemistry
01/29/24 01/31/24
06:36 09:32
BUN 13 13
Creatinine 1.2 1.2
Estimated Creat Clear 44 43
Therapeutic Drug Monitoring
Vancomycin Peak 22.7 ug/ml (18-26) 01/31/24 09:32
Random Vancomycin 14.5 ug/ml 01/28/24 06:35
[2024-01-31] MEDS: SANTYL OINTMENT 1 APPLIC TOPICAL (14:18)
[2024-01-31] MEDS: SINEMET 25-100 1 TABLET PO ×3 (14:19→21:31)
[2024-01-31] MEDS: ZOLOFT 25 MG PO (14:19)
[2024-01-31] MEDS: ELIQUIS 5 MG PO ×2 (14:19→21:31)
[2024-01-31] MEDS: VITAMIN C 500 MG PO (14:19)
[2024-01-31] MEDS: THERAGRAN 1 TABLET PO (14:19)
[2024-01-31] MEDS: PEPCID 20 MG PO (14:19)
[2024-01-31] MEDS: FLOMAX 0.4 MG PO (14:19)
[2024-01-31] MEDS: VITAMIN D3 (cholecalciferol) 125 MCG PO (14:20)
[2024-01-31] MEDS: LIORESAL 2.5 MG PO ×2 (14:20→21:30)
[2024-01-31] MEDS: DAKIN'S SOLUTION 0.125% 1/4 STRENGTH 473 ML TOPICAL (14:24)
[2024-01-31] MEDS: IODOSORB 1 APPLIC TOPICAL (14:24)
[2024-01-31 15:35] VITALS: BP 153/98
--- NOTE | 2024-01-31 16:29 | CM ---
Patient seen at bedside with physicians and . Patient just returned from MRI and now for possible further IV antibiotics. CM spoke with patient and admissions at [facility] about possible need for IV at SNF> CM will continue to follow
for discharge planning needs.
Plan;SNF vs home with VN/IV antibiotics
--- NOTE | 2024-01-31 16:53 | W.PN.ID1 ---
Date of Service
Date of Service: January 31, 2024
Today's Communication
Perseverating and not re-directable on my exam: keeps asking why the antibiotics were turned off and not reassured by multiple differently worded explanations that he has the effective dose of antibiotics and infusion will be intermittent; if
persists would ask psychiatry to reevaluate
Multipodus boots for heel offloading - offloading is important to maximize limited possibility of intermediate teacher healing
plan 6 weeks of IV vancomycin and ceftriaxone, also oral metronidazole through 03/01 - switched
picc line
Patient at high risk of limb loss even with aggressive antibiotic therapy, offloading will be essential
wound care per podiatry
Follow up with podiatry
Assessment / Plan
Nonpurulent cellulitis complicating a chronic wound on the L anterior santana
Unstageable pressure wounds on the L heel, R heel stage 1
L heel osteomyelitis
Leukocytosis - resolved
H/o colonization with MRSA
Limited body dementia
Hx bipolar disorder
Progressive super nuclear palsy
Iron Deficiency Anemia
Essential hypertension
CHF - Unknown Type
Recommendations:
Perseverating and not re-directable on my exam: keeps asking why the antibiotics were turned off and not reassured by multiple differently worded explanations that he has the effective dose of antibiotics and infusion will be intermittent; if
persists would ask psychiatry to reevaluate
Multipodus boots for heel offloading - offloading is important to maximize limited possibility of longterm healing
plan 6 weeks of IV vancomycin and ceftriaxone, also oral metronidazole through 03/01 - switched
picc line
Patient at high risk of limb loss even with aggressive antibiotic therapy, offloading will be essential
Follow up with podiatry
Chief Complaint
-: Other (osteomyelitis of the L heel)
Subjective / Review of Systems
afebrile
bp stable
no leukocytosis or L shift
colonized with mrsa
repetatively demanding that 'the antibiotics be turned back on' not redirectable
Vital Signs / Physical Exam
Vital Signs
Vital Signs
Temp Pulse Resp BP Pulse Ox
97.7 F 70 16 149/81 96
01/31/24 07:30 01/31/24 07:30 01/31/24 07:30 01/31/24 07:30 01/31/24 07:30
Physical Exam
Constitutional: No Acute Distress and Chronically Ill
Cardiovascular: Regular Rate
Pulmonary: Symmetric and Non Labored
Gastrointestinal: Non Distended
Wound: Other (patient refused to allow me to take down dressings)
Objective Data
Lab Data
Lab Results
01/31/24 09:32
01/31/24 09:32
ESR 39 mm/hour (0-20) H 01/20/24 12:08
Estimated Creat Clear 43 ml/min 01/31/24 09:32
Lactic Acid Cancelled 01/20/24 20:08
Total Bilirubin 0.4 mg/dl (0.2-1.3) 01/22/24 06:32
AST 31 U/L (17-59) 01/22/24 06:32
ALT 25 U/L (0-50) 01/22/24 06:32
Alkaline Phosphatase 108 U/L (38-126) 01/22/24 06:32
C-Reactive Protein > 270.00 mg/L (0.0-10.00) H 01/20/24 12:08
Most recent labs reviewed.
Micro Results:
01/20/24 12:08 Urine Culture - Final
Urine No Significant Growth
[2024-01-31] MEDS: STERILE WATER FOR INJECTION 20 ML IV (17:44)
[2024-01-31] MEDS: ROCEPHIN 2000 MG IV (17:45)
--- NOTE | 2024-01-31 18:06 | W.PN.HOSP.TC ---
Addendum entered and electronically signed by Yoly Guerrero MD 01/31/24 19:46:
I saw and evaluated the patient independently. I reviewed the resident�s note and agree with findings and plan as documented by Dr. Allred.
GENERAL: well developed, well nourished, male in no apparent distress
HEENT: NC/AT--no O2 requirements
HEART: regular rate and rhythm, +S1, +S2
LUNGS : clear to auscultation bilaterally
ABDOM: soft, nontender, nondistended, + bowel sounds
EXT: no cyanosis, clubbing, or edema
NEUROLOGIC: grossly intact
: mcgregor in place
SKIN: pictures reviewed as taken by wound care
sepsis secondary to Nonpurulent Left LE cellulitis--Leukocytosis (wbc 21 + left shift), reported measured fever 100.4 prior to admission, lactate 1.8, CRP/ESR elevated--Toxic metabolic encephalopathy: reported to be altered from baseline at nursing
home--x-ray of the tibia and fibula did not show any foreign bodies-Continue broad spectrum coverage: Zosyn + Vancomycin--apprec wound care and podiatry/ID---MRI of foot revealed acute osteomyelitis. ID and podiatry following. Awaiting
recommendations.
Acute kidney injury on CKD (unclear stage, likely stage III):Baseline creatinine is approximately 1.3--Creatinine on admission was 2.3---Resolved. at baseline, 1.2--Mcgregor inserted for retention. Flomax added. Voiding trial failed. mcgregor reinserted,
would keep at d/c
Transaminitis--Likely reactive--No abdominal complaints, negative abd physical exam-Resolved
Anemia likely of chronic disease--hemoglobin on admission is 8.5--drop to 7.7 --> 7.3 with IV fluid administration --> 6.8 --Folate normal, B12 mildly elevated. Iron studies nonspecific-Status post 1 unit PRBC, Hgb stabilized at 8.7-Heme positive
stool-GI input appreciated: patient's would like to hold off on invasive testing like endoscopy. prefer conservative approach--Continue to monitor CBC
Wounds (POA)--Stage I sacral pressure injury, Stage 1 pressure wound on left heel, unstageable on right heel---LE compression as tolerated, elevation as tolerated. Multipodus boots for heel offloading---MRI revealed acute osteomyelitis per
above-Appreciate ID input-Appreciate Wound care--appreciate podiatry/podiatric surgery
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
secondary to medication effect--Speech therapy evaluation: IDD6 (soft, bite sized) recommended. Diet resumed-Currently on Sinemet. Continue--Appreciate psych input. Avoid first generation antipsychotics for risk of extrapyramidal symptoms. Avoid
benzodiazepines. Will consider Seroquel for behavioral disturbance if necessary
History of bipolar 1, Obsessive compulsive disorder--Perseveration noted on physical exam, anxious, pressured speech--Remote diagnosis of Bipolar disorder with long history of lithium use. Discontinued [place] some months ago. Patient's family noted
improvement in behavior after [place] stopped--Appreciate psych input: Preservative symptoms may be signs of Lewy body dementia. Patient on sertraline. Continue.
History of congestive heart failure unknown type--Will consider echo on this visit
Patient on chronic anticoagulation therapy with Eliquis--for presumed paroxysmal atrial fibrillation although cannot verify this. Patient will continue on eliquis.
Essential hypertension--Continue BP meds
DVT prophylaxis: Eliquis
CODE STATUS--full code
Original Note:
Today's Communication/Plan
-
-MRI revealed acute osteomyelitis.
-Podiatry and ID appreciated.
Assessment / Plan
Assessment / Plan
#sepsis secondary to Nonpurulent Left LE cellulitis
Leukocytosis (wbc 21 + left shift), reported measured fever 100.4 prior to admission, lactate 1.8, CRP/ESR elevated
Toxic metabolic encephalopathy: reported to be altered from baseline at residential
x-ray of the tibia and fibula did not show any foreign bodies
- Improved clinical situation. Normalized white count. No further fevers.
-Continue broad spectrum coverage: Zosyn + Vancomycin.
-MRI of foot revealed acute osteomyelitis. ID and podiatry following. Awaiting reccommendations.
#Acute kidney injury on CKD (unclear stage, likely stage III):
Baseline creatinine is approximately 1.3
Creatinine on admission is 2.3,
Prerenal vs urinary retention. Fena 0.4%
-Resolved. at baseline, 1.2
-Mcgregor inserted for retention. Flomax added. Voiding trial failed. mcgregor reinserted
#Transaminitis
Likely reactive
No abdominal complaints, negative abd physical exam
-Resolved
Anemia
hemoglobin on admission is 8.5--drop to 7.7 --> 7.3 with IV fluid administration --> 6.8
Folate normal, B12 mildly elevated. Iron studies nonspecific.
-Status post 1 unit PRBC, Hgb stabilized at 8.7
-Heme positive stool
-GI input appreciated: patient's would like to hold off on invasive testing like endoscopy. prefer conservative approach
-Continue to monitor CBC
#Wounds:
Stage I sacral pressure injury, Stage 1 pressure wound on left heel, unstageable on right heel
LE compression as tolerated, elevation as tolerated. Multipodus boots for heel offloading.
-MRI revealed acute osteomyelitis per above.
-Appreciate ID input
-Appreciate Wound care
-appreciate podiatry/podiatric surgery
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 seen by neurology at that time
Family disputes these diagnoses, suggests that behavioral change is secondary to medication effect
Speech therapy evaluation: IDD6 (soft, bite sized) recommended. Diet resumed
-Currently on Sinemet. Continue
-Appreciate psych input. Avoid first generation antipsychotics for risk of extrapyramidal symptoms. Avoid benzodiazepines. Will consider Seroquel for behavioral disturbance if necessary
#History of bipolar 1, Obsessive compulsive disorder
Perseveration noted on physical exam, anxious, pressured speech
Remote diagnosis of Bipolar disorder with long history of lithium use. Discontinued [place] some months ago. Patient's family noted improvement in behavior after [place] stopped
-Appreciate psych input: Preservative symptoms may be signs of Lewy body dementia. Patient on sertraline. Continue.
#History of congestive heart failure unknown type
Lung exam normal
-Will consider echo on this visit
#Patient on chronic anticoagulation therapy with Eliquis--for presumed paroxysmal atrial fibrillation although cannot verify this. Patient will continue on eliquis.
Essential hypertension--Continue BP meds
DVT prophylaxis: Eliquis
CODE STATUS--full code
Anticipated Discharge: > 48 hours
Subjective/Interval History
-
Date of Service: January 31, 2024
Objective Data
-
Labs:
Laboratory Results
01/31/24
09:32
WBC 7.3
Hgb 9.0 L
Hct 27.3 L
Plt Count 253 D
Sodium 138
Potassium 3.7
Chloride 108 H
Carbon Dioxide 27
BUN 13
Creatinine 1.2
Glucose 84
Calcium 8.3 L
Vital Signs:
Vital Signs
Temp Pulse Resp BP Pulse Ox
98.1 F 105 18 153/98 96
01/31/24 15:35 01/31/24 15:35 01/31/24 15:35 01/31/24 15:35 01/31/24 15:35
I&O
01/30/24 01/31/24 02/01/24
06:59 06:59 06:59
Intake Total 1240 / 1240 1989 / 1989 210 / 210
Output Total 3200 / 3200 2100 / 2100 1600 / 1600
Balance -1960 / -1960 -110 / -110 -1390 / -1390
Review of Systems
-
Unable to obtain full review of systems at this time due to: Dementia (unable to document as patient was a poor historian)
Physical Exam
-
General: Well Developed
HEENT: Normocephalic and Atraumatic
Respiratory: Clear to Auscultation
Cardiac: Regular Rhythm and S1/S2
GI: Soft, Nontender, Nondistended and Normal Bowel Sounds
Musculoskeletal: No Edema; Negative Edema, Right Lower Extrem or Edema, Left Lower Extrem
Neuro: Awake and Alert
Psych: Confused and Agitated
Data Reviewed
-
MRI: Report Reviewed by me, Discussed with Physician, Discussed with Nurse, Discussed with Patient and Discussed with Family
Labs: Labs Reviewed by me, Discussed with Physician, Discussed with Patient and Discussed with Family
--- NOTE | 2024-01-31 18:20 | VATNOTE ---
01/30 Picc for 6 weeks antibiotics ordered- patient is very disoriented. Infectious disease OK with picc being placed closer to discharge.
[2024-01-31] MEDS: MELATONIN 3 MG PO (21:31)
[2024-01-31] MEDS: FLAGYL 500 MG PO (21:31)
[2024-01-31] MEDS: BENADRYL 25 MG PO (21:31)
[2024-01-31 23:11] VITALS: BP 135/70
[2024-02-01 06:00] VITALS: BMI 19.4
--- NOTE | 2024-02-01 06:08 | PTCARENOTE ---
Pt freq. calling out. unable to really redirect once he is fixated on one topic. I.E ABX times.
[2024-02-01] MEDS: VANCOCIN 150 IV (06:13)
[2024-02-01 06:41] LABS: Vancomycin Trough 14.2 ug/ml (5-20)
[2024-02-01 06:53] LABS: Blood Urea Nitrogen 16 mg/dl (9-20); Calcium 8.4 mg/dl (8.4-10.2); Carbon Dioxide 25 mmol/L (22-30); Chloride 109 mmol/L (98-107); Estimated Creatinine Clearance 43 ml/min; Glucose 71 mg/dl (70-99); Potassium 3.9 mmol/L (3.5-5.1); Sodium 139 mmol/L (135-145); eGFR > 60.00
[2024-02-01 06:55] LABS: % Basophils 0.5 % (0-2); % Eosinophils 1.9 % (0-6); % Immature Granulocytes 0.4 % (0-0.5); % Lymphocytes 12.4 % (20.5-51.1); % Monocytes 8.6 % (1.7-9.3); % Neutrophils 76.2 % (42.2-75.2); Absolute Eosinophils 0.1 10^3/uL (0-0.7); Absolute Lymphocytes 0.9 10^3/uL (1.2-3.4); Absolute Monocytes 0.6 10^3/uL (0.1-0.6); Absolute Neutrophils 5.7 10^3/uL (1.4-6.5); Hematocrit 29.4 % (39.0-52.0); Hemoglobin 9.4 g/dL (13.0-18.0); Mean Corpuscular Volume 87.5 fL (80.0-94.0); Mean Platelet Volume 9.8 fL (7.4-10.4); Nucleated Red Blood Cells % 0 % (-); Platelet Count 256 10^3/uL (130-400); Red Blood Cell Count 3.36 10^6/uL (4.70-6.10); Red Cell Dist. Width 17.5 % (11.5-14.5); White Blood Cell Count 7.5 10^3/uL (4.8-10.8)
--- NOTE | 2024-02-01 07:14 | PN.CDI ---
CDI
- -
CDI:
Physician Documentation Request
Admit Date: 01/20/24 15:39
Dear Doctor,
Please review the following and provide your response in the progress notes.
Clinical Indicators:
- 01/30 PN 'Stage 1 pressure wound on left heel'
- 01/26 ID 'Unstageable pressure wounds on the L heel'
- 01/20 Wound note 'L medial heel unstageable suspect stage 4 pressure injury with loosening black eschar'
- 01/24 Podiatry 'chronic unstageable left heel wound...suggest adding Santyl ointment'
- 'chronic pressure unstageable wounds both heels'
In an attempt to clarify potentially conflicting documentation, please clarify the left heel pressure ulcer stage:
Unstageable left heel pressure injury
Other
Use of terms such as suspected, likely, concern for, or probable (associated with a specific diagnosis that is being evaluated, monitored, or treated as if it exists) are acceptable and can be coded in the inpatient setting, when documented at the
time of discharge.
Thank you,
Iron Mccabe RN
CDI Specialist
Please use your independent medical judgment in providing your response.
*Source: National Pressure Ulcer Advisory Panel (NPUAP)
[2024-02-01 07:40] VITALS: BP 166/80
--- NOTE | 2024-02-01 08:53 | PHA.VAN.FU ---
Vancomycin Assessment / Plan
- Assessment
Renal Function: Stable
WBC's are: WNL
In the past 24 hrs, patient has been: Afebrile
Concomitant Antimicrobials: ceftriaxone, metronidazole
- Assessment - Therapeutic Drug Monitoring
Extrapolated Cmax (mcg/mL): 23.9
Peak level was drawn: Appropriately (drawn ~2.1H after end of previous infusion)
Extrapolated Cmin (mcg/mL): 13.6
Trough Drawn: Appropriately
Levels were drawn: At steady state (levels drawn after 4th scheduled maintenance dose / 9th overall dose of 750mg once daily)
Calculated AUC (mcg*h/mL): 440
Calculated ke: 0.0244
Calculated half life (H): 28.4
Calculated Vd (L): 70 (~1.1 L/kg)
Calculated Vanc CL (ml/min): 28
- Dosing Plan
Continue: Vanc 750mg Q24H
Dosing Comments: Half-life (28.4H) > dosing interval (24H)
Patient may have additional accumulation; however, patient's levels have currently remained stable between 13.7 and 14.5 through 9 doses of 750mg once daily
Will continue Q24H dosing for now
- Monitoring Plan
Level(s) appropriate: Recheck trough at minimum of weekly intervals, Repeat sooner for changes in renal function or clinical status
Next Level Due (Date): ~02/07 - may consider sooner to assess for accumulation
Monitoring Comments: Consider changing to Q48H interval if accumulation of level seen
- Follow Up
Pharmacy will continue to follow.
Vancomycin Follow UP
- -
Patient Age: 78
Patient Sex: Male
Vancomycin Day #: 13
Indication: Skin And Soft Tissue
Requesting Provider: Dr. Guerrero / Tracy
Pertinent Antimicrobial Allergies:
NKDA
Height / Weight:
Height 5 ft 10 in
Actual Weight 61.19 kg
IBW in k
Pertinent Past Medical History: CKD (baseline SCR ~1.3), BMI ~19
- Vital Signs / Lab Results
Temp Pulse Resp BP Pulse Ox
98.5 F 82 16 135/70 96
01/31/24 23:11 01/31/24 23:11 01/31/24 23:11 01/31/24 23:11 01/31/24 23:11
Lab Results - Hematology
01/31/24 02/01/24
09: 04:46
WBC 7.3 7.5
Lab Results - Chemistry
01/31/24 02/01/24
09:32 04:46
BUN 13 16
Creatinine 1.2 1.2
Estimated Creat Clear 43 43
Therapeutic Drug Monitoring
Vancomycin Peak 22.7 ug/ml (18-26) 01/31/24 09:32
Vancomycin Trough 14.2 ug/ml (5-20) 02/01/24 04:46
Random Vancomycin 14.5 ug/ml 01/28/24 06:35
[2024-02-01] MEDS: ELIQUIS 5 MG PO ×2 (09:27→21:41)
[2024-02-01] MEDS: FLAGYL 500 MG PO ×2 (09:27→21:42)
[2024-02-01] MEDS: LIORESAL 2.5 MG PO ×2 (09:27→21:42)
[2024-02-01] MEDS: SANTYL OINTMENT 1 APPLIC TOPICAL (09:27)
[2024-02-01] MEDS: FLOMAX 0.4 MG PO (09:27)
[2024-02-01] MEDS: PEPCID 20 MG PO (09:27)
[2024-02-01] MEDS: SINEMET 25-100 1 TABLET PO ×3 (09:27→21:42)
[2024-02-01] MEDS: THERAGRAN 1 TABLET PO (09:27)
--- NOTE | 2024-02-01 09:27 | CM ---
Addendum entered by Ledy Villanueva 02/01/24 16:10:
Plan for discharge back to [facility] tomorrow and IMM completed and signed form placed on chart. Torri aware and plan for transfer in am pending physician assessment.
Addendum entered by Ledy Villanueva 02/01/24 09:37:
CM spoke with patient and update provided.
Original Note:
Per [facility] patient is aware of respite rates and plans to transition patient back to [facility] for treatment. CM will review plan with patient and confirm call and report numbers for possible transition tomorrow. CM will
continue to follow for discharge planning needs.
Plan; SNF
[2024-02-01] MEDS: VITAMIN D3 (cholecalciferol) 125 MCG PO (09:28)
[2024-02-01] MEDS: VITAMIN C 500 MG PO (09:28)
[2024-02-01] MEDS: ZOLOFT 25 MG PO (09:28)
[2024-02-01] MEDS: IODOSORB 1 APPLIC TOPICAL (09:28)
[2024-02-01] MEDS: DAKIN'S SOLUTION 0.125% 1/4 STRENGTH 473 ML TOPICAL (09:28)
--- NOTE | 2024-02-01 12:57 | PTCARENOTE ---
wound care done at bedside by this nurse. pt is aaox1, and is at bedside. plan is for PICC placement this afternoon in preparation to send pt back to facility with IV abx. psych reconsulted for this patient. pt repetitively yelling out, very
anxious within the room. pt remains a q2t, a setup feed, and is on aspiration precautions
--- NOTE | 2024-02-01 14:51 | W.PN.UPDATE ---
Update Note
Progress Note Update
Pt is 78 yo male, seen by Psychiatry 01/21/24 for dementia, possibly with Lewy bodies, with obsessive/repetitive questions, started on Zoloft 25 mg daily. Psychiatry asked to see again due to persistent repetitive questions, verbally agitated/loud.
Pt seen reclining in bed with at the bedside. Pt is hard of hearing. He is alert, calm, with sensorium intact, making eye contact. Affect is somewhat irritable. There are no overt signs of psychosis, pt shows no physical agitation. Pt has
not required any recent prn medications for agitation. He has been on Zoloft 25 mg daily since 01/22/24, with no side effects noted.
Imp: Dementia, possibly Lewy body, with verbal agitation/fixation, frequently calling out
Rec: Will try increasing Zoloft to 50 mg daily, monitor for side effects (most commonly nausea or decreased appetite- usually temporary)
will follow
[2024-02-01 15:42] VITALS: BP 156/84
--- NOTE | 2024-02-01 16:35 | W.PN.ID1 ---
Date of Service
Date of Service: February 01, 2024
Today's Communication
Multipodus boots for heel offloading - offloading is important to maximize limited possibility of senior care healing
plan 6 weeks of IV vancomycin and ceftriaxone, also oral metronidazole through 03/01 - switched
picc line
Patient at high risk of limb loss even with aggressive antibiotic therapy, offloading will be essential. Discussed at length with today.
Follow up with podiatry
Assessment / Plan
Nonpurulent cellulitis complicating a chronic wound on the L anterior santana
Unstageable pressure wounds on the L heel, R heel stage 1
L heel osteomyelitis
Leukocytosis - resolved
H/o colonization with MRSA
Limited body dementia
Hx bipolar disorder
Progressive super nuclear palsy
Iron Deficiency Anemia
Essential hypertension
CHF - Unknown Type
Recommendations:
Multipodus boots for heel offloading - offloading is important to maximize limited possibility of intermediate teacher healing
plan 6 weeks of IV vancomycin and ceftriaxone, also oral metronidazole through 03/01 - switched
picc line
Patient at high risk of limb loss even with aggressive antibiotic therapy, offloading will be essential. Discussed at length with today.
Follow up with podiatry
Chief Complaint
-: Other (osteomyelitis of the L heel)
Subjective / Review of Systems
reevaluated by psychiatry and zoloft dose increased
spoke with Gina and explained that he is at high risk of limb loss
Vital Signs / Physical Exam
Vital Signs
Vital Signs
Temp Pulse Resp BP Pulse Ox
97.5 F 59 18 156/84 96
02/01/24 15:42 02/01/24 15:42 02/01/24 15:42 02/01/24 15:42 02/01/24 15:42
Physical Exam
Constitutional: No Acute Distress
Cardiovascular: Regular Rate
Pulmonary: Symmetric
Gastrointestinal: Non Tender
Skin: Dry
Wound: Other (deferred dressing take down)
Neurological: Negative Awake
Objective Data
Lab Data
Lab Results
02/01/24 04:46
02/01/24 04:46
ESR 39 mm/hour (0-20) H 01/20/24 12:08
Estimated Creat Clear 43 ml/min 02/01/24 04:46
Lactic Acid Cancelled 01/20/24 20:08
Total Bilirubin 0.4 mg/dl (0.2-1.3) 01/22/24 06:32
AST 31 U/L (17-59) 01/22/24 06:32
ALT 25 U/L (0-50) 01/22/24 06:32
Alkaline Phosphatase 108 U/L (38-126) 01/22/24 06:32
C-Reactive Protein > 270.00 mg/L (0.0-10.00) H 01/20/24 12:08
Most recent labs reviewed.
Micro Results:
01/20/24 12:08 Urine Culture - Final
Urine No Significant Growth
--- NOTE | 2024-02-01 17:33 | W.PN.HOSP.TC ---
Addendum entered and electronically signed by Yoly Guerrero MD 02/01/24 20:02:
I saw and evaluated the patient independently. I reviewed the resident�s note and agree with findings and plan as documented by Dr. Allred.
GENERAL: well developed, well nourished, male in no apparent distress
HEENT: NC/AT--no O2 requirements
HEART: regular rate and rhythm, +S1, +S2
LUNGS : clear to auscultation bilaterally
ABDOM: soft, nontender, nondistended, + bowel sounds
EXT: no cyanosis, clubbing, or edema
NEUROLOGIC: grossly intact
: mcgregor in place
SKIN: pictures reviewed as taken by wound care
sepsis secondary to Nonpurulent Left LE cellulitis--Leukocytosis (wbc 21 + left shift), reported measured fever 100.4 prior to admission, lactate 1.8, CRP/ESR elevated--Toxic metabolic encephalopathy: reported to be altered from baseline at nursing
home--x-ray of the tibia and fibula did not show any foreign bodies-Continue broad spectrum coverage: Zosyn + Vancomycin--apprec wound care and podiatry/ID---MRI of foot revealed acute osteomyelitis--apprec ID and podiatry-- 6 weeks of IV ABX
through PICC
Acute kidney injury on CKD (unclear stage, likely stage III):Baseline creatinine is approximately 1.3--Creatinine on admission was 2.3---Resolved. at baseline, 1.2--Mcgregor inserted for retention. Flomax added. Voiding trial failed. mcgregor reinserted,
would keep at d/c
Transaminitis--Likely reactive--No abdominal complaints, negative abd physical exam-Resolved
Anemia likely of chronic disease--hemoglobin on admission is 8.5--drop to 7.7 --> 7.3 with IV fluid administration --> 6.8 --Folate normal, B12 mildly elevated. Iron studies nonspecific-Status post 1 unit PRBC, Hgb stabilized at 8.7-Heme positive
stool-GI input appreciated: patient's would like to hold off on invasive testing like endoscopy. prefer conservative approach--Continue to monitor CBC
Wounds (POA)--Stage I sacral pressure injury, unstageable pressure wound on left heel, unstageable on right heel---LE compression as tolerated, elevation as tolerated. Multipodus boots for heel offloading---MRI revealed acute osteomyelitis per
above-Appreciate ID input-Appreciate Wound care--appreciate podiatry/podiatric surgery
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
secondary to medication effect--Speech therapy evaluation: IDD6 (soft, bite sized) recommended. Diet resumed-Currently on Sinemet. Continue--Appreciate psych input. Avoid first generation antipsychotics for risk of extrapyramidal symptoms. Avoid
benzodiazepines. Will consider Seroquel for behavioral disturbance if necessary
History of bipolar 1, Obsessive compulsive disorder--Perseveration noted on physical exam, anxious, pressured speech--Remote diagnosis of Bipolar disorder with long history of lithium use. Discontinued [place] some months ago. Patient's family noted
improvement in behavior after [place] stopped--Appreciate psych input: Preservative symptoms may be signs of Lewy body dementia. Patient on sertraline. Continue.
History of congestive heart failure unknown type--no signs of volume overload, will defer ECHO
Patient on chronic anticoagulation therapy with Eliquis--for presumed paroxysmal atrial fibrillation although cannot verify this. Patient will continue on eliquis.
Essential hypertension--Continue BP meds
DVT prophylaxis: Eliquis
CODE STATUS--full code
Original Note:
Today's Communication/Plan
-
Patient will likely be discharged tomorrow as his vitals are stable and picc line will be inserted. He will be able to continue IV antibiotic treatment via PICC line for osteo myelitis per ID at care home.
Assessment / Plan
Assessment / Plan
#sepsis secondary to Nonpurulent Left LE cellulitis
Leukocytosis (wbc 21 + left shift), reported measured fever 100.4 prior to admission, lactate 1.8, CRP/ESR elevated
Toxic metabolic encephalopathy: reported to be altered from baseline at care home
x-ray of the tibia and fibula did not show any foreign bodies
- Improved clinical situation. Normalized white count. No further fevers.
-Continue broad spectrum coverage: Zosyn + Vancomycin.
-MRI of foot revealed acute osteomyelitis. PICC line placement for 6 weeks of IV vancomycin and ceftriaxone, also oral metronidazole through 03/01 perID.
-Note patient has high risk of limb loss even with aggressive antibiotic therapy, offloading will be essential per ID.
-Planned discharge patient to care home tomorrow
#Acute kidney injury on CKD (unclear stage, likely stage III):
Baseline creatinine is approximately 1.3
Creatinine on admission is 2.3,
Prerenal vs urinary retention. Fena 0.4%
-Resolved. at baseline, 1.2
-Mcgregor inserted for retention. Flomax added. Voiding trial failed. mcgregor reinserted
#Transaminitis
Likely reactive
No abdominal complaints, negative abd physical exam
-Resolved
Anemia
hemoglobin on admission is 8.5--drop to 7.7 --> 7.3 with IV fluid administration --> 6.8
Folate normal, B12 mildly elevated. Iron studies nonspecific.
-Status post 1 unit PRBC, Hgb stabilized at 8.7
-Heme positive stool
-GI input appreciated: patient's would like to hold off on invasive testing like endoscopy. prefer conservative approach
-Continue to monitor CBC
#Wounds:
Stage I sacral pressure injury, Stage 1 pressure wound on left heel, unstageable on right heel
LE compression as tolerated, elevation as tolerated. Multipodus boots for heel offloading.
-MRI revealed acute osteomyelitis per above.
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 seen by neurology at that time
Family disputes these diagnoses, suggests that behavioral change is secondary to medication effect
Speech therapy evaluation: IDD6 (soft, bite sized) recommended. Diet resumed
-Currently on Sinemet. Continue
-Appreciate psych input. Avoid first generation antipsychotics for risk of extrapyramidal symptoms. Avoid benzodiazepines. Will consider Seroquel for behavioral disturbance if necessary
-Psychiatry consulted today for increased aggression with nursing staff.
#History of bipolar 1, Obsessive compulsive disorder
Perseveration noted on physical exam, anxious, pressured speech
Remote diagnosis of Bipolar disorder with long history of lithium use. Discontinued [place] some months ago. Patient's family noted improvement in behavior after [place] stopped
-Appreciate psych input: Preservative symptoms may be signs of Lewy body dementia. Patient on sertraline. Continue.
#History of congestive heart failure unknown type
Lung exam normal
-Will consider echo on this visit
#Patient on chronic anticoagulation therapy with Eliquis--for presumed paroxysmal atrial fibrillation although cannot verify this. Patient will continue on eliquis.
#Diet
-Patient continues to exhibit clinical signs of oropharyngeal dysphagia, likely chronic related to dementia, and possibly acutely exacerbated by cellulitis/UTI/sepsis per OT.
-OT assessed the patient and recommended soft and bite-size diet with thin liquids.
-Aspiration precautions in place.
Essential hypertension--Continue BP meds
DVT prophylaxis: Eliquis
CODE STATUS--full code
Anticipated Discharge: Within 24 hours
Subjective/Interval History
-
Date of Service: February 01, 2024
Objective Data
-
Labs:
Laboratory Results
02/01/24
04:46
WBC 7.5
Hgb 9.4 L
Hct 29.4 L
Plt Count 256
Sodium 139
Potassium 3.9
Chloride 109 H
Carbon Dioxide 25
BUN 16
Creatinine 1.2
Glucose 71
Calcium 8.4
Vital Signs:
Vital Signs
Temp Pulse Resp BP Pulse Ox
97.5 F 59 18 156/84 96
02/01/24 15:42 02/01/24 15:42 02/01/24 15:42 02/01/24 15:42 02/01/24 15:42
I&O
01/31/24 02/01/24 02/02/24
06:59 06:59 06:59
Intake Total 1989 210 / 210
Output Total 2099 3350 / 3350
Balance -110 / -110 -3140 / -3140
Review of Systems
-
Unable to obtain full review of systems at this time due to: Dementia
Physical Exam
-
HEENT: Normocephalic
Respiratory: Clear to Auscultation
Cardiac: Regular Rhythm and S1/S2
GI: Soft, Nontender and Nondistended
Musculoskeletal: No Clubbing, No Cyanosis and No Edema
Neuro: Awake and Alert; Negative Oriented
Psych: Confused and Agitated
[2024-02-01] MEDS: STERILE WATER FOR INJECTION 20 ML IV (17:42)
[2024-02-01] MEDS: ROCEPHIN 2000 MG IV (17:42)
[2024-02-01] MEDS: BENADRYL 25 MG PO (21:42)
[2024-02-01] MEDS: MELATONIN 3 MG PO (21:42)
[2024-02-01 23:08] VITALS: BP 134/72
[2024-02-02 04:13] VITALS: BMI 19.7
[2024-02-02] MEDS: VANCOCIN 150 IV (06:00)
[2024-02-02 06:04] LABS: % Basophils 0.8 % (0-2); % Eosinophils 2.1 % (0-6); % Immature Granulocytes 0.4 % (0-0.5); % Lymphocytes 15.4 % (20.5-51.1); % Monocytes 6.7 % (1.7-9.3); % Neutrophils 74.6 % (42.2-75.2); Absolute Basophils 0.1 10^3/uL (0-0.2); Absolute Eosinophils 0.2 10^3/uL (0-0.7); Absolute Lymphocytes 1.2 10^3/uL (1.2-3.4); Absolute Monocytes 0.5 10^3/uL (0.1-0.6); Absolute Neutrophils 5.7 10^3/uL (1.4-6.5); Hematocrit 30.5 % (39.0-52.0); Hemoglobin 9.7 g/dL (13.0-18.0); Mean Corp Hgb Conc. 31.8 g/dL (33.0-37.0); Mean Corpuscular Hgb 27.3 pg (27.0-31.0); Mean Corpuscular Volume 85.9 fL (80.0-94.0); Mean Platelet Volume 9.9 fL (7.4-10.4); Nucleated Red Blood Cells % 0 % (-); Platelet Count 307 10^3/uL (130-400); Red Blood Cell Count 3.55 10^6/uL (4.70-6.10); White Blood Cell Count 7.6 10^3/uL (4.8-10.8)
[2024-02-02 06:09] VITALS: BMI 18.2
[2024-02-02 06:23] LABS: Blood Urea Nitrogen 14 mg/dl (9-20); Calcium 8.8 mg/dl (8.4-10.2); Carbon Dioxide 26 mmol/L (22-30); Chloride 109 mmol/L (98-107); Estimated Creatinine Clearance 44 ml/min; Glucose 73 mg/dl (70-99); Potassium 4.2 mmol/L (3.5-5.1); Sodium 141 mmol/L (135-145); eGFR > 60.00
[2024-02-02 07:30] VITALS: BP 152/98
--- NOTE | 2024-02-02 08:13 | W.PN.HOSP.TC ---
Addendum entered and electronically signed by Yoly Guerrero MD 02/02/24 14:10:
I saw and evaluated the patient independently. I reviewed the resident�s note and agree with findings and plan as documented by Dr. Allred.
GENERAL: well developed, well nourished, male in no apparent distress
HEENT: NC/AT--no O2 requirements
HEART: regular rate and rhythm, +S1, +S2
LUNGS : clear to auscultation bilaterally
ABDOM: soft, nontender, nondistended, + bowel sounds
EXT: no cyanosis, clubbing, or edema
NEUROLOGIC: grossly intact
: mcgregor in place
SKIN: pictures reviewed as taken by wound care
sepsis secondary to Nonpurulent Left LE cellulitis with Toxic metabolic encephalopathy: reported to be altered from baseline at retirement--resolved---x-ray of the tibia and fibula did not show any foreign bodies-Continue broad spectrum coverage:
Zosyn + Vancomycin--apprec wound care and podiatry/ID---MRI of foot revealed acute osteomyelitis--apprec ID and follow up with podiatry-- 6 weeks of IV ABX through PICC--no surgery planned at this time
Acute kidney injury on CKD (unclear stage, likely stage III):Baseline creatinine is approximately 1.3--Creatinine on admission was 2.3---Resolved. at baseline, 1.2--Mcgregor inserted for retention. Flomax added. Voiding trial failed. mcgregor reinserted,
would keep at d/c with trial of void at [facility]
Transaminitis--Likely reactive--No abdominal complaints, negative abd physical exam--Resolved
Anemia likely of chronic disease--hemoglobin on admission is 8.5--drop to 7.7 --> 7.3 with IV fluid administration --> 6.8 --Folate normal, B12 mildly elevated. Iron studies nonspecific-Status post 1 unit PRBC, Hgb stabilized at 8.7-Heme positive
stool-GI input appreciated: patient's would like to hold off on invasive testing like endoscopy. prefer conservative approach--Continue to monitor CBC
Wounds (POA)--Stage I sacral pressure injury, unstageable pressure wound on left heel, unstageable on right heel---LE compression as tolerated, elevation as tolerated. Multipodus boots for heel offloading---MRI revealed acute osteomyelitis per
above-Appreciate ID input-Appreciate Wound care--appreciate podiatry/podiatric surgery
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
secondary to medication effect--Speech therapy evaluation: IDD6 (soft, bite sized) recommended. Diet resumed-Currently on Sinemet. Continue--Appreciate psych input. Avoid first generation antipsychotics for risk of extrapyramidal symptoms. Avoid
benzodiazepines. Will consider Seroquel for behavioral disturbance if necessary
History of bipolar 1, Obsessive compulsive disorder--Perseveration noted on physical exam, anxious, pressured speech--Remote diagnosis of Bipolar disorder with long history of lithium use. Discontinued [place] some months ago. Patient's family noted
improvement in behavior after [place] stopped--Appreciate psych input: Preservative symptoms may be signs of Lewy body dementia. Patient on sertraline. Continue.
History of congestive heart failure unknown type--no signs of volume overload, will defer ECHO
Patient on chronic anticoagulation therapy with Eliquis--for presumed paroxysmal atrial fibrillation although cannot verify this. Patient will continue on eliquis.
Essential hypertension--Continue BP meds
DVT prophylaxis: Eliquis
CODE STATUS--full code
OK for d/c
Original Note:
Today's Communication/Plan
-
Patient has plans for discharge today. Picc line successful inserted. Will continue antibiotic regimen per ID recommendation at retirement. Zoloft increased to 50mg daily to aid with verbal agitation/fixation secondary to dementia.
Assessment / Plan
Assessment / Plan
#sepsis secondary to Nonpurulent Left LE cellulitis
Leukocytosis (wbc 21 + left shift), reported measured fever 100.4 prior to admission, lactate 1.8, CRP/ESR elevated
Toxic metabolic encephalopathy: reported to be altered from baseline at retirement
x-ray of the tibia and fibula did not show any foreign bodies
- Improved clinical situation. Normalized white count. No further fevers.
-Continue broad spectrum coverage: Zosyn + Vancomycin.
-MRI of foot revealed acute osteomyelitis. PICC line placement successful. Discharging patient with 6 weeks of IV vancomycin and ceftriaxone, also oral metronidazole through 03/01 per ID.
-Note patient has high risk of limb loss even with aggressive antibiotic therapy, offloading will be essential per ID.
-Planned discharge patient to retirement today
#Acute kidney injury on CKD (unclear stage, likely stage III):
Baseline creatinine is approximately 1.3
Creatinine on admission is 2.3,
Prerenal vs urinary retention. Fena 0.4%
-Resolved. at baseline, 1.2
-Mcgregor inserted for retention. Flomax added. Voiding trial failed. mcgregor reinserted
#Transaminitis
Likely reactive
No abdominal complaints, negative abd physical exam
-Resolved
Anemia
hemoglobin on admission is 8.5--drop to 7.7 --> 7.3 with IV fluid administration --> 6.8
Folate normal, B12 mildly elevated. Iron studies nonspecific.
-Status post 1 unit PRBC, Hgb stabilized at 8.7
-Heme positive stool
-GI input appreciated: patient's would like to hold off on invasive testing like endoscopy. prefer conservative approach
-Continue to monitor CBC
#Wounds:
Stage I sacral pressure injury, unstageable pressure wound on left heel, unstageable on right heel
LE compression as tolerated, elevation as tolerated. Multipodus boots for heel offloading.
-MRI revealed acute osteomyelitis per above.
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 seen by neurology at that time
Family disputes these diagnoses, suggests that behavioral change is secondary to medication effect
Speech therapy evaluation: IDD6 (soft, bite sized) recommended. Diet resumed
-Currently on Sinemet. Continue
-Appreciate psych input. Avoid first generation antipsychotics for risk of extrapyramidal symptoms. Avoid benzodiazepines. Will consider Seroquel for behavioral disturbance if necessary
-Psychiatry consulted for increased aggression with nursing staff
-Zoloft increase from 25 to 50mg daily.
#History of bipolar 1, Obsessive compulsive disorder
Perseveration noted on physical exam, anxious, pressured speech
Remote diagnosis of Bipolar disorder with long history of lithium use. Discontinued [place] some months ago. Patient's family noted improvement in behavior after [place] stopped
-Appreciate psych input: Preservative symptoms may be signs of Lewy body dementia. Patient on sertraline. Continue at home.
#History of congestive heart failure unknown type
Lung exam normal
-Will consider echo on this visit
#Patient on chronic anticoagulation therapy with Eliquis--for presumed paroxysmal atrial fibrillation although cannot verify this. Patient will continue on eliquis.
#Diet
-Patient continues to exhibit clinical signs of oropharyngeal dysphagia, likely chronic related to dementia, and possibly acutely exacerbated by cellulitis/UTI/sepsis per OT.
-OT assessed the patient and recommended soft and bite-size diet with thin liquids.
-Aspiration precautions in place.
Essential hypertension--Continue BP meds
DVT prophylaxis: Eliquis
CODE STATUS--full code
Anticipated Discharge: Today
Subjective/Interval History
-
Date of Service: February 02, 2024
Objective Data
-
Labs:
Laboratory Results
02/02/24
05:39
WBC 7.6
Hgb 9.7 L
Hct 30.5 L
Plt Count 307
Sodium 141
Potassium 4.2
Chloride 109 H
Carbon Dioxide 26
BUN 14
Creatinine 1.1
Glucose 73
Calcium 8.8
Vital Signs:
Vital Signs
Temp Pulse Resp BP Pulse Ox
98.5 F 79 19 134/72 97
02/01/24 23:08 02/01/24 23:08 02/01/24 23:08 02/01/24 23:08 02/01/24 23:08
I&O
02/01/24 02/02/24 02/03/24
06:59 06:59 06:59
Intake Total 210 / 210 1920 / 1920
Output Total 3350 / 3350 2099 / 2099
Balance -3140 / -3140 -180 / -180
Review of Systems
-
Unable to obtain full review of systems at this time due to: Dementia
Physical Exam
-
General: Well Developed
Respiratory: Clear to Auscultation
Cardiac: Regular Rhythm and S1/S2
GI: Soft, Nontender and Nondistended
Musculoskeletal: Negative Edema, Right Lower Extrem or Edema, Left Lower Extrem
Neuro: Awake and Alert
--- NOTE | 2024-02-02 08:40 | WOUNDNOTE ---
WOC RN note: Alex texted Dr. Camacho re: L heel MRI showed acute osteomyelitis. Dr. Camacho responded she did see that, has no surgical plan for patient, ID is treating him with antibiotics.
--- NOTE | 2024-02-02 09:19 | PHA.VAN.FU ---
Vancomycin Assessment / Plan
- Assessment
Renal Function: Stable
In the past 24 hrs, patient has been: Afebrile
Concomitant Antimicrobials: ceftriaxone, metronidazole
- Dosing Plan
Continue: Vanc 750mg Q24H
Dosing Comments: Half-life (28.4H) > dosing interval (24H)
Patient may have additional accumulation; however, patient's levels have currently remained stable between 13.7 and 14.5 through 9 doses of 750mg once daily
Will continue Q24H dosing for now
- Monitoring Plan
Level(s) appropriate: Recheck trough at minimum of weekly intervals, Repeat sooner for changes in renal function or clinical status
Next Level Due (Date): ~02/07 - may consider sooner to assess for accumulation
Monitoring Comments: Consider changing to Q48H interval if accumulation of level seen
- Follow Up
Pharmacy will continue to follow.
Vancomycin Follow UP
- -
Patient Age: 78
Patient Sex: Male
Vancomycin Day #: 14
Indication: Skin And Soft Tissue
Requesting Provider: Dr. Guerrero / Tracy
Pertinent Antimicrobial Allergies:
NKDA
Height / Weight:
Height 5 ft 10 in
Actual Weight 57.379 kg
IBW in k
Pertinent Past Medical History: CKD (baseline SCR ~1.3), BMI ~19
- Vital Signs / Lab Results
Temp Pulse Resp BP Pulse Ox
98.5 F 112 18 152/98 96
02/01/24 23:08 02/02/24 07:30 02/02/24 07:30 02/02/24 07:30 02/02/24 07:30
Lab Results - Hematology
01/31/24 02/01/24 02/02/24
09:32 04:46 05:39
WBC 7.3 7.5 7.6
Lab Results - Chemistry
01/31/24 02/01/24 02/02/24
09:32 04:46 05:39
BUN 13 16 14
Creatinine 1.2 1.2 1.1
Estimated Creat Clear 43 43 44
Therapeutic Drug Monitoring
Vancomycin Peak 22.7 ug/ml (18-26) 01/31/24 09:32
Vancomycin Trough 14.2 ug/ml (5-20) 02/01/24 04:46
Random Vancomycin 14.5 ug/ml 01/28/24 06:35
[2024-02-02] MEDS: SINEMET 25-100 1 TABLET PO (09:45)
[2024-02-02] MEDS: LIORESAL 2.5 MG PO (09:45)
[2024-02-02] MEDS: ZOLOFT 50 MG PO (09:46)
[2024-02-02] MEDS: VITAMIN C 500 MG PO (09:46)
[2024-02-02] MEDS: VITAMIN D3 (cholecalciferol) 125 MCG PO (09:46)
[2024-02-02] MEDS: THERAGRAN 1 TABLET PO (09:46)
[2024-02-02] MEDS: ELIQUIS 5 MG PO (09:46)
[2024-02-02] MEDS: FLAGYL 500 MG PO (09:46)
[2024-02-02] MEDS: FLOMAX 0.4 MG PO (09:46)
[2024-02-02] MEDS: SANTYL OINTMENT 1 APPLIC TOPICAL (09:47)
[2024-02-02] MEDS: PEPCID 20 MG PO (09:47)
[2024-02-02] MEDS: IODOSORB 1 APPLIC TOPICAL (09:49)
[2024-02-02] MEDS: DAKIN'S SOLUTION 0.125% 1/4 STRENGTH 1 ML TOPICAL (09:49)
--- NOTE | 2024-02-02 09:54 | CM ---
Reviewed the chart notes. CM continues to be available to patient/family and is monitoring medical plan for needs at discharge.
Plan: Discharge back to [facility] when medically stable.
Call report to: [phone]
Fax report to: [phone]
Medical necessity and transport forms on the chart.
--- NOTE | 2024-02-02 11:00 | W.PN.ID1 ---
Date of Service
Date of Service: February 02, 2024
Today's Communication
plan 6 weeks of IV vancomycin and ceftriaxone, also oral metronidazole through 03/01
picc line - I am not confident that patient will tolerate this modality. If he pulls out his PICC line then the plan would be to switch to doxycycline 100 mg PO BID for the same course.
Patient at high risk of limb loss even with aggressive antibiotic therapy, offloading will be essential. Discussed at length with and daughter yesterday. No guarantees were given and it was explained that if he fails medical treatment
amputation may still be recommended. Also explained that stage 3 or 4 pressure ulcers can be indications for hospice and he may be approaching the end of his life. I did not specify but my assessment would be within 6 months. At this time plan is
to continue with all aggressive medical treatments.
Follow up with podiatry
Assessment / Plan
L heel osteomyelitis
Stage 4 Pressure Ulcer
H/o colonization with MRSA
Lewy body dementia
Hx bipolar disorder
Progressive super nuclear palsy
Iron Deficiency Anemia
Essential hypertension
CHF - Unknown Type
Recommendations:
Multipodus boots for heel offloading - offloading is important to maximize limited possibility of manager intermediate healing
plan 6 weeks of IV vancomycin and ceftriaxone, also oral metronidazole through 03/01
picc line - I am not confident that patient will tolerate this modality. If he pulls out his PICC line then the plan would be to switch to doxycycline 100 mg PO BID for the same course.
Patient at high risk of limb loss even with aggressive antibiotic therapy, offloading will be essential. Discussed at length with and daughter yesterday. No guarantees were given and it was explained that if he fails medical treatment
amputation may still be recommended and that he is at high risk for treatment failure. I also explained that stage 3 or 4 pressure ulcers can be indications for hospice and he may be approaching the end of his life. I did not specify a time frame
but my assessment would be within 6 months. At this time plan is to continue with all aggressive medical treatments as per the and daughter (POAs I am told) wishes. asks if she could administer the IV antibiotics at home which I do not
feel is realistic. I will not prescribe home IV antibiotics for this patient but have given script for IV antibiotics to be given at a facility.
Follow up with podiatry
Chief Complaint
-: Other (osteomyelitis of the L heel)
Subjective / Review of Systems
afebrile
bp stable
Vital Signs / Physical Exam
Vital Signs
Vital Signs
Temp Pulse Resp BP Pulse Ox
98.5 F 112 18 152/98 96
02/01/24 23:08 02/02/24 07:30 02/02/24 07:30 02/02/24 07:30 02/02/24 07:30
Physical Exam
Constitutional: No Acute Distress
Cardiovascular: Regular Rate
Pulmonary: Symmetric and Non Labored
Gastrointestinal: Non Distended
Neurological: Negative Awake (not disturbed)
Objective Data
Lab Data
Lab Results
02/02/24 05:39
02/02/24 05:39
ESR 39 mm/hour (0-20) H 01/20/24 12:08
Estimated Creat Clear 44 ml/min 02/02/24 05:39
Lactic Acid Cancelled 01/20/24 20:08
Total Bilirubin 0.4 mg/dl (0.2-1.3) 01/22/24 06:32
AST 31 U/L (17-59) 01/22/24 06:32
ALT 25 U/L (0-50) 01/22/24 06:32
Alkaline Phosphatase 108 U/L (38-126) 01/22/24 06:32
C-Reactive Protein > 270.00 mg/L (0.0-10.00) H 01/20/24 12:08
Most recent labs reviewed, colonized with MRSA 12/08/23; urine culture finalized neg
Micro Results:
01/20/24 12:08 Urine Culture - Final
Urine No Significant Growth
--- NOTE | 2024-02-02 13:06 | PTCARENOTE ---
Spoke with Travis at [facility] [phone]. health support specialist time is 1530.
--- NOTE | 2024-02-02 14:09 | W.DCSUMMARY ---
Addendum entered and electronically signed by Yoly Guerrero MD 02/02/24 17:05:
Read, reviewed, and agree. See same day progress note for additional details. Time spent coordinating care, DC planning, review of DC plan of care with resident, transition of care, review of records in EMR, med rec, consults, notes, d/w
consultants, nursing, family, and CM = 60 minutes
Original Note:
Discharge Summary
Discharge Data
Date of Admission: 01/20/24
Date of Discharge: 02/02/24
-
Pending Results: No
Hospital Course
Primary diagnosis:
�Sepsis secondary to nonpurulent left lower extremity cellulitis with acute osteomyelitis
Secondary diagnoses:
� Acute kidney injury on CKD likely stage III
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
�Bipolar 1
�Obsessive-compulsive disorder
-History of congestive heart failure unknown type
-Presumed paroxysmal atrial fibrillation cannot verify
Hospital course:
78-year-old male with history of dementia presented to the ED from group home facility at [facility] with concerns of cellulitis in the left leg and change in mental status. He was on oral ciprofloxacin and doxycycline with IV fluids for
presumed cellulitis of the left leg. He has a history of dementia with metabolic encephalopathy, bipolar disorder who at baseline is usually agitated, confused but can normally answer questions and is able to communicate. However a few days prior
to admission patient was unable to respond well and repeated nonsensical phrases and words. Nursing staff noted fever of 100.4 and sent patient to the ED. ER workup diagnosed him sepsis likely secondary to cellulitis with a white blood cell count
of 21,000 acute hypoxemia, acute kidney injury and transaminitis. Urinalysis is positive for ketones, leukocyte Estrace, and moderate bacteria. Patient was started on IV vancomycin and IV Zosyn admitted to the hospital. On antibiotics white blood
cell count returned to normal, acute kidney injury resolved along with transaminitis. During hospital admission, hemoglobin dropped, however returned to normal status post 1 unit of PRBC. Patient's did not want diagnostic procedures to evaluate
anemia. Further workup of the unstageable pressure ulcers present on admission with MRI revealed acute osteomyelitis of the left heel. ID and podiatry were consulted and surgical interventions were not recommended. Infectious disease recommended
insertion of PICC line and 6 weeks of IV antibiotics. PICC line was inserted and IV antibiotics ceftriaxone and vancomycin along with oral metronidazole was started. Infectious disease recommends continuation of oral metronidazole until 03/01.
Infectious disease noted that patient is at high risk of limb loss with even with aggressive antibiotic therapy, offloading will be essential. Podiatry concurs. Follow up will be with podiatry in the upcoming 4-6 weeks. Patient was also seen by
psychiatry due to apparent progression of dementia and Zoloft medication was increased from 25 mg to 50. Patient also had difficulty emptying his bladder while hospitalized. Folly catheter was placed with trial of voiding twice which he failed.
Patient is being sent to nursing facility with Alejandra in and tamsulosin. senior living can redo voiding trial or follow up with urology if family prefers. While in the hospital speech therapy recommended soft and bite-size diet. However would
like him to be able to eat in the dining home at the nursing facility. Advance to regular diet as tolerated.
Today, patient is clinically stable with PICC line inserted. Patient will be sent to [facility] with instructions for 6 weeks of IV vancomycin and ceftriaxone and oral metronidazole as mentioned above. Discharge hg is 9.7 and cr is 1.1.
Discharge Plan
-
Patient Disposition: [facility]/SNF
Discharge Diagnosis/Procedures: Sepsis secondary to nonpurulent left lower extremity cellulitis with acute osteomyelitis left heel, acute kidney injury on chronic kidney disease likely stage III, anemia of chronic disease, wound stage I sacral
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
likely chronic, essential hypertension, chronic anticoagulation therapy presumed paroxysmal atrial fibrillation
Condition: Good
Diet: Other diet
Additional Diets: Soft and bite size with thin liquids. Advance to regular diet as tolerated.
Activity: As tolerated
Additional Activity: Offloading heels. Multipodus boot.
Driving Restrictions: No driving
Bathing Restrictions: None
Other Services: PT, OT and ST
Activity Restrictions/Additional Instructions:
Wound Care Instructions
LLE wound-clean with 1/4 strength Dakin's solution, apply Santyl, adaptic, cover with silicone border foam or ABD pad and Kerlix, change daily and prn drainage (add alginate prn large amount of drainage).
Bilateral heel wounds-clean with 1/4 strength Dakin's solution, apply Iodosorb gel or Betadine, cover with foam dressing or ABD pad and Kerlix, change daily and prn drainage (add alginate prn large amount of drainage). Pad Achilles with silicone
border foam under Multipodis splints.
Bilateral knee high Sorin wraps as tolerated; re-wrap daily and prn skin checks.
Sacrum-clean with saline, silicone border foam, change q 3 days and prn loosened dressing.
Air mattress
Turning schedule
Pressure redistributing chair cushion (i.e. Air chair cushion).
Elevate heels off bed; Multipodis splints as tolerated.
Follow up at wound care center call for an appointment.
Alejandra catheter to be kept at discharge, trial of void at facility.
Referrals:
Ramona Camacho DPM [Active] - in four to six weeks
()
Toney Jovel MD [Family Provider] - in less than 1 week
Prescriptions:
New
Dakin's Solution 0.125 % Solution
1 applic topical DAILY Qty: 473 0RF
metronidazole 500 mg Tablet
500 mg PO BID Qty: 60 0RF
Rx Instructions:
Continue through 03/01
tamsulosin 0.4 mg Capsule
0.4 mg PO DAILY Qty: 0 0RF
Iodosorb 0.9 % Gel
40 g topical DAILY Qty: 40 0RF
ceftriaxone 2 gram Recon Soln
2,000 mg IV Q24H 42 Days Qty: 0 0RF
Rx Instructions:
Continued for next 6 weeks
Santyl 250 unit/gram Ointment
1 applic topical DAILY Qty: 90 0RF
vancomycin in 0.9 % sodium chl 750 mg/150 mL Piggyback
750 mg IV DAILY@0600 Qty: 0 0RF
Rx Instructions:
Continue for the next 6 weeks.
sertraline 50 mg Tablet
50 mg PO DAILY Qty: 0 0RF
Continued
acetaminophen 325 mg Tablet
650 mg PO Q4H PRN (Reason: mild pain/temp>101)
loperamide 2 mg Capsule
2 mg PO Q4HPRN PRN (Reason: diarrhea)
famotidine 40 mg Tablet
40 mg PO DAILY
magnesium hydroxide [Milk of Magnesia] 400 mg/5 mL Suspension
30 ml PO DAILY PRN (Reason: if no bm after 3 days)
ascorbic acid (vitamin C) [Vitamin C] 500 mg Tablet
500 mg PO DAILY
bisacodyl [Dulcolax (bisacodyl)] 10 mg Suppository
10 mg LA DAILY PRN (Reason: if no bm in 24hrs after MOM)
Fleet Enema 19-7 gram/118 mL Enema
118 ml LA DAILY PRN (Reason: if no bm in 24hrs after suppository)
atenolol 50 mg Tablet
50 mg PO DAILY
multivitamin,tx-minerals Tablet
1 tab PO DAILY
cholecalciferol (vitamin D3) 125 mcg (5,000 unit) Tablet
125 mcg PO DAILY
apixaban 5 mg Tablet
5 mg PO Q12
carbidopa-levodopa 25-100 mg Tablet
1 tab PO TID Qty: 1 0RF
melatonin 3 mg Tablet
3 mg PO HS
baclofen 5 mg Tablet
2.5 mg PO BID
Discontinued
ciprofloxacin HCl [Cipro] 250 mg Tablet
250 mg PO BID
Rx Instructions:
01/19/24 through 01/26/24
sertraline 25 mg Tablet
25 mg PO DAILY
doxycycline hyclate 100 mg Tablet
100 mg PO BID
Rx Instructions:
01/18/24 through 01/27/24
povidone-iodine [Betadine] 10 % Solution
1 applic TOPICAL QIDPRN PRN (Reason: Bilateral heal wound soilage)
Calcium Alginate Wound Care
1 applic topical DAILY
Discharge Orders:
Discharge Patient (As Directed); Ordered 02/02/24
Ordered By: Nidia Allred
Discharge Date and Time
Discharge Date/Time: 02/02/24 15:51
Print Language: MACANESE
[2024-02-02 15:38] VITALS: BP 114/84
== END 2024-02-02 15:51 | DRG 871 ==
LOC: 2 NORTH 15:39
PROVIDERS: Internal Medicine; Radiology Diagnostic Radiology; Student in an Organized Health Care Education/Training Program; ADMITTING PHYSICIAN Internal Medicine; CONSULT PHYSICIAN Internal Medicine Gastroenterology; CONSULT PHYSICIAN Podiatrist; CONSULT PHYSICIAN Student in an Organized Health Care Education/Training Program; EMERGENCY PHYSICIAN Emergency Medicine; FAMILY PHYSICIAN Internal Medicine; OTHER PHYSICIAN Psychiatry & Neurology Psychiatry; OTHER PHYSICIAN Student in an Organized Health Care Education/Training Program
PROC: 30233N1 Transfusion of Nonautologous Red Blood Cells into Peripheral Vein, Percutaneous Approach (ICD-10-PCS; 2024-01-24)
PROC: 02HV33Z Insertion of Infusion Device into Superior Vena Cava, Percutaneous Approach (ICD-10-PCS; 2024-02-01)
DX: A41.9 Sepsis, unspecified organism (principal); G92.8 Other toxic encephalopathy; I13.0 Hypertensive heart and chronic kidney disease with heart failure and stage 1 through stage 4 chronic kidney disease, or unspecified chronic kidney disease; L97.329 Non-pressure chronic ulcer of left ankle with unspecified severity; L03.116 Cellulitis of left lower limb; F02.818 Dementia in other diseases classified elsewhere, unspecified severity, with other behavioral disturbance; F02.83 Dementia in other diseases classified elsewhere, unspecified severity, with mood disturbance; G23.1 Progressive supranuclear ophthalmoplegia [Steele-Richardson-Olszewski]; E87.1 Hypo-osmolality and hyponatremia; E87.20 Acidosis, unspecified; M86.172 Other acute osteomyelitis, left ankle and foot; N17.9 Acute kidney failure, unspecified; I50.9 Heart failure, unspecified; E86.0 Dehydration; F31.9 Bipolar disorder, unspecified; G47.00 Insomnia, unspecified; G31.83 Neurocognitive disorder with Lewy bodies; L89.151 Pressure ulcer of sacral region, stage 1; L89.629 Pressure ulcer of left heel, unspecified stage; N26.1 Atrophy of kidney (terminal); N18.30 Chronic kidney disease, stage 3 unspecified; L89.619 Pressure ulcer of right heel, unspecified stage; H91.90 Unspecified hearing loss, unspecified ear; D63.8 Anemia in other chronic diseases classified elsewhere; D69.6 Thrombocytopenia, unspecified; G20.C Parkinsonism, unspecified; K21.9 Gastro-esophageal reflux disease without esophagitis; R13.12 Dysphagia, oropharyngeal phase; R74.01 Elevation of levels of liver transaminase levels; D50.9 Iron deficiency anemia, unspecified; F42.9 Obsessive-compulsive disorder, unspecified; I95.9 Hypotension, unspecified; I48.0 Paroxysmal atrial fibrillation; Z87.440 Personal history of urinary (tract) infections; Z79.01 Long term (current) use of anticoagulants; Z22.322 Carrier or suspected carrier of Methicillin resistant Staphylococcus aureus
CPT/HCPCS: 71045; 73590; 73620; 73723; 76700; 80048; 80053; 80202; 81003; 81015; 82565; 82570; 82607; 82728; 82746; 82962; 83550; 83605; 83735; 84300; 84443; 84520; 85025; 85027; 85652; 86140; 86850; 86900; 86901; 86920; 87086; 92526; 92610; 93005; 93922; 93925; 96365; 97163; 97167; 97530; 97535; 99285; A9575; P9016